=== PATIENT | female | born 1960 | race Caucasian/White ===

== ENCOUNTER → 2023-12-29 12:45 | Outpatient (REF) | payer OTHER, SELFPAY | LOC: PAVMRI 12:45 | PROVIDERS: ATTENDING PHYSICIAN Physician Assistant Surgical | DX: M25.512 Pain in left shoulder (principal); M54.2 Cervicalgia | CPT/HCPCS: 72141; 73221 ==

== ENCOUNTER → 2024-01-13 09:44 | Outpatient (REF) | payer OTHER, SELFPAY | LOC: RAD 09:44 | PROVIDERS: ATTENDING PHYSICIAN Nurse Practitioner | DX: E04.1 Nontoxic single thyroid nodule (principal) | CPT/HCPCS: 76536 ==

== ENCOUNTER 2024-02-20 15:57 | Outpatient (RCR) | payer OTHER, SELFPAY | END 2024-02-20 23:59 | disposition home or self-care (01) | LOC: RPT 15:57 | PROVIDERS: ATTENDING PHYSICIAN Specialist; FAMILY PHYSICIAN Nurse Practitioner | DX: M54.2 Cervicalgia (principal); M75.82 Other shoulder lesions, left shoulder; M65.20 Calcific tendinitis, unspecified site; Z73.6 Limitation of activities due to disability; M19.012 Primary osteoarthritis, left shoulder; M50.222 Other cervical disc displacement at C5-C6 level; M54.50 Low back pain, unspecified; M72.2 Plantar fascial fibromatosis | CPT/HCPCS: 97010; 97110; 97140; 97162; 97530 ==

== ENCOUNTER 2024-03-21 12:06 | Outpatient (RCR) | payer OTHER, SELFPAY | END 2024-03-21 23:59 | disposition home or self-care (01) | LOC: RPT 12:06 | PROVIDERS: ATTENDING PHYSICIAN Specialist; FAMILY PHYSICIAN Nurse Practitioner | DX: M54.2 Cervicalgia (principal); M65.20 Calcific tendinitis, unspecified site; Z73.6 Limitation of activities due to disability | CPT/HCPCS: 97010; 97110; 97140; 97530 ==

== ENCOUNTER 2024-04-18 13:51 | Outpatient (RCR) | payer OTHER, SELFPAY | END 2024-04-18 23:59 | disposition home or self-care (01) | LOC: RPT 13:51 | PROVIDERS: ATTENDING PHYSICIAN Specialist; FAMILY PHYSICIAN Nurse Practitioner | DX: M54.2 Cervicalgia (principal); M75.82 Other shoulder lesions, left shoulder; Z73.6 Limitation of activities due to disability | CPT/HCPCS: 97010; 97110; 97140 ==

== ENCOUNTER 2024-04-25 12:05 | Outpatient (RCR) | payer OTHER, SELFPAY | END 2024-04-25 14:01 | disposition home or self-care (01) | LOC: RPT 12:05 | PROVIDERS: ATTENDING PHYSICIAN Specialist; FAMILY PHYSICIAN Nurse Practitioner | DX: M54.2 Cervicalgia (principal); M75.82 Other shoulder lesions, left shoulder; Z73.6 Limitation of activities due to disability; M65.20 Calcific tendinitis, unspecified site | CPT/HCPCS: 97010; 97110; 97140 ==

== ENCOUNTER → 2024-08-18 09:18 | Outpatient (REF) | payer OTHER, SELFPAY | LOC: RCS 09:18 | PROVIDERS: ATTENDING PHYSICIAN Nurse Practitioner | DX: R60.0 Localized edema (principal) | CPT/HCPCS: 93306 ==

== ENCOUNTER → 2024-08-22 12:37 | Outpatient (REF) | payer OTHER, SELFPAY | LOC: RAD 12:37 | PROVIDERS: ATTENDING PHYSICIAN Nurse Practitioner; FAMILY PHYSICIAN Internal Medicine | DX: R11.0 Nausea (principal); M72.2 Plantar fascial fibromatosis; J90 Pleural effusion, not elsewhere classified | CPT/HCPCS: 71046; 74176 ==

== ENCOUNTER → 2024-09-28 06:31 | Day surgery (SDC) | payer OTHER, SELFPAY ==
[2024-09-28 08:27] LABS: Glucose - Point of Care 136 mg/dl (70-99)
== END ==
LOC: GI 06:31
PROVIDERS: ATTENDING PHYSICIAN Internal Medicine Gastroenterology
DX: K22.89 Other specified disease of esophagus (principal); Z87.19 Personal history of other diseases of the digestive system
CPT/HCPCS: 43239; 88305; 82962

== ENCOUNTER → 2024-11-09 08:43 | Outpatient (REF) | payer OTHER, SELFPAY | LOC: PAVMRI 08:43 | PROVIDERS: ATTENDING PHYSICIAN Internal Medicine Interventional Cardiology; FAMILY PHYSICIAN Nurse Practitioner | DX: I50.32 Chronic diastolic (congestive) heart failure (principal); I10 Essential (primary) hypertension; I51.89 Other ill-defined heart diseases | CPT/HCPCS: 75561; 75565; A9585 ==

== ENCOUNTER → 2024-11-21 09:27 | Outpatient (REF) | payer OTHER, SELFPAY ==
[2024-11-21 10:00] VITALS: BP 164/62; BP_SYST 74
[2024-11-21 11:00] LABS: Albumin 3.4 g/dl (3.5-5.0)
== END ==
LOC: RADI 09:27
PROVIDERS: ATTENDING PHYSICIAN Internal Medicine Gastroenterology; FAMILY PHYSICIAN Nurse Practitioner
DX: R18.8 Other ascites (principal); Z53.8 Procedure and treatment not carried out for other reasons
CPT/HCPCS: 36415; 76705; 82040

== ENCOUNTER → 2024-11-22 17:38 | Outpatient (REF) | payer OTHER, SELFPAY | LOC: MRI 17:38 | PROVIDERS: ATTENDING PHYSICIAN Internal Medicine Gastroenterology; FAMILY PHYSICIAN Nurse Practitioner | DX: R18.8 Other ascites (principal) | CPT/HCPCS: 74183; A9581 ==

== ENCOUNTER 2025-01-26 18:11 | Emergency (ER) | payer OTHER, SELFPAY ==
[2025-01-26 18:25] VITALS: BP 135/90
[2025-01-26 19:35] LABS: Glucose - Point of Care 363 mg/dl (70-99)
[2025-01-26] MEDS: DUPHALAC/CHRONULAC 20 GRAMS PO (21:54)
[2025-01-26] MEDS: NSS 1000 IV (21:55)
--- NOTE | 2025-01-26 21:56 | ED.GENMED ---
History of Present Illness
General
Chief Complaint: Bowel Problem
Source: patient
Exam Limitations: none
Time Seen by Provider: 01/26/25 21:04
Nursing documentation reviewed up to this point in time: agreed with
History of Present Illness
History of Present Illness:
62-year-old female with no bowel movement for 2 weeks think she may have an impaction, no fevers, she takes 11 meds including meds for mental health, diabetes, no narcotic pain med
Past History
Past History
ED Past Medical History: NIDDM and Hypothyroidism
ED Past Surgical History: Orthopedic
Phy Exam
Physical Exam
Physical Exam:
Physical Exam
General: Chronically ill-appearing female
Neck: Lips are slightly dry
Heart: s1/s2 regular rate and rhythm, no murmur. equal radial pulses.
Lungs: no acute respiratory distress. clear bilaterally
Abdomen: Distended mild diffuse tenderness
Neuro: alert and oriented. no focal neurological deficits
Skin: no rash
Psychiatric: well kept. interactive and cooperative
Extremities: no edema.
Course
Orders/Labs/Results
Orders:
Orders
01/26/25 18:29
Abdomen Xray - 1 View [CR Abdomen - 1 View] Urgent
Comment:
Reason For Exam: constipation x 2 weeks
01/26/25 19:25
Accucheck Once [Bedside Glucose Monitoring-ONCE] As Directed
01/26/25 21:36
0.9% Sodium Chloride 1000 ml [Nss] 1,000 ml IV BOLUS
Lactulose [Duphalac/Chronulac] 20 grams PO NOW STA
01/26/25 21:37
Enema- Treatment ONCE
Type: Soap Suds
01/26/25 21:53
Complete Blood Count/With Diff Urgent
Comprehensive Metabolic Panel Urgent
01/26/25 23:09
Polyethylene Glycol Powder [Miralax] 17 grams PO NOW STA
01/26/25 23:15
Enema- Treatment ONCE
Type: Milk of Molasses
Abnormal Lab Results
01/26/25 01/26/25
19:32 21:53
WBC 13.9 H 10^3/uL
(4.8-10.8)
MCH 32.0 H pg
(27.0-31.0)
MCHC 37.5 H g/dL
(33.0-37.0)
Abs Immat Gran (auto) 0.1 H 10^3/uL
(0-0.05)
Absolute Neuts (auto) 8.6 H 10^3/uL
(1.4-6.5)
Absolute Lymphs (auto) 3.8 H 10^3/uL
(1.2-3.4)
Absolute Monos (auto) 1.3 H 10^3/uL
(0.1-0.6)
Sodium 131 L mmol/L
(135-145)
Chloride 95 L mmol/L
(98-107)
BUN 36 H mg/dl
(7-17)
Glucose 286 H mg/dl
(70-99)
Total Bilirubin 1.9 H mg/dl
(0.2-1.3)
AST 47 H U/L
(14-36)
ALT 43 H U/L
(0-35)
POC Glucose 363 H mg/dl
(70-99)
01/26/25 21:53
01/26/25 21:53
Vital Signs
Initial and Last Documented VS:
Initial Vital Signs
Temp Pulse Resp BP Pulse Ox
98 F 144 20 135/90 100
01/26/25 18:25 01/26/25 18:25 01/26/25 18:25 01/26/25 18:25 01/26/25 18:25
Last Documented Vital Signs
Temp Pulse Resp BP Pulse Ox
98 F 100 18 134/94 98
01/26/25 18:25 01/27/25 01:57 01/27/25 01:57 01/27/25 01:57 01/27/25 01:57
Procedures
Other
Indication for procedure:: Fecal DISimpaction
Procedure completed by: Farhat
Consent form signed: No
Additional Procedure:
Verbal consent timeout gloved hand moderate amount of semihard stool removed from patient's rectum
MDM/Problems Addressed
Differential Diagnosis Includes:
Constipation obstipation does not appear to be obstructed
MDM/Problems Addressed:
Constipation multiple meds
Chronic conditions affecting care:
Multiple medication
Chronic conditions affecting care: Neurological disorder and Psychiatric illness
Acute Exacerbation and/or Progression of Chronic Illness: Neurological disorder and Psychiatric illness
*Critical Care Note
Total Time (30-74mins, 75-104mins- exclusive of procedures): Not Applicable
Update Note
Update Note:
Patient with a large amount of stool on her x-ray, will start aggressive bowel regimen, blood sugars up check some blood work start on IV fluids perform serial abdominal exams prior upper and lower endoscopy reports reviewed
1025, saline hydration up, labs are noted patient also urinary retention suspect due to her constipation see if we get her opened up diffuse able to urinate
Manually disimpacted
ED Attending Note
-
Portions of this chart may have been created with voice recognition software.� Occasional wrong word or��sound alike� substitutions may have occurred due to the inherent limitations of voice recognition software.
Discharge Plan
Departure
Patient Disposition: Home (Routine Discharge)
Date of Disposition: 01/26/25
Time of Disposition: 23:13
Patient with high blood pressure during this ER visit?: No
Condition: Good
Covid-19: Not Applicable
Discharge Problem:
Fecal impaction of rectum
Instructions: Constipation, Adult (DC), Fecal Impaction (DC)
Prescriptions:
New
lactulose 20 gram packet
20 g PO BID PRN (Reason: laxative effect) Qty: 30 0RF
mineral oil [Fleet Mineral Oil] Enema
118 ml [place] DAILY PRN (Reason: Constipation) Qty: 133 8RF
polyethylene glycol 3350 [Miralax] 17 gram/dose powder
4 g PO DAILY PRN (Reason: Constipation) Qty: 476 0RF
No Action
glipizide 10 MG tablet
10 mg PO BID
omeprazole 40 MG capsule,delayed release(DR/EC)
40 mg PO DAILY
alprazolam 0.25 MG tablet
0.25 mg PO DAILY
levothyroxine 50 MCG tablet
50 mcg PO DAILY
metformin 1,000 MG tablet
1,000 mg PO BID
fluticasone propionate 1 SPRAY spray,suspension
1 spray intranasal DAILY
loratadine 10 MG tablet
10 mg PO DAILY
furosemide 40 mg Tablet
40 mg PO DAILY
atorvastatin 40 mg Tablet
40 mg PO DAILY
atomoxetine [Strattera] 25 mg Capsule
25 mg PO DAILY
duloxetine 30 mg Capsule,Delayed Release(Dr/Ec)
30 mg PO BID
(DME) FreeStyle Bassem 2 Sensor Kit
MISCELLANEOUS
Rybelsus 14 mg Tablet
14 mg PO DAILY
cyclobenzaprine 10 mg Tablet
10 mg PO TID PRN (Reason: back/neck pain)
spironolactone 100 mg Tablet
100 mg PO DAILY
Referrals:
Deni Garcia MD [Active] - Next open appointment
Marsha Levin CRNP [Family Provider] -
Interventions
Interventions:
*Risk Screen - Suicide Last Done: 01/26/25 18:25
*General Assessment Last Done: 01/27/25 00:34
*Neglect/Abuse Screening Last Done: 01/26/25 18:25
*ED- Fall Risk Assessment Last Done: 01/27/25 00:34
*ED COVID-19 Vaccine History Last Done: 01/27/25 00:34
*Nursing Disposition Last Done: 01/27/25 01:33
TT-Qdcxay-Amoiifyqle Assessment Last Done: 01/26/25 22:08
Discharge Date and Time
Discharge Date/Time: 01/27/25 01:58
Print Language: FRENCH
[2025-01-26 21:59] LABS: % Basophils 0.6 % (0-2); % Eosinophils 1.2 % (0-6); % Immature Granulocytes 0.4 % (0-0.5); % Lymphocytes 27.1 % (20.5-51.1); % Neutrophils 61.7 % (42.2-75.2); Absolute Basophils 0.1 10^3/uL (0-0.2); Absolute Eosinophils 0.2 10^3/uL (0-0.7); Absolute Immature Granulocytes 0.1 10^3/uL (0-0.05); Absolute Lymphocytes 3.8 10^3/uL (1.2-3.4); Absolute Monocytes 1.3 10^3/uL (0.1-0.6); Absolute Neutrophils 8.6 10^3/uL (1.4-6.5); Hematocrit 41.1 % (37.0-47.0); Hemoglobin 15.4 g/dL (12.0-16.0); Mean Corp Hgb Conc. 37.5 g/dL (33.0-37.0); Mean Corpuscular Volume 85.3 fL (81.0-99.0); Mean Platelet Volume 9.9 fL (7.4-10.4); Nucleated Red Blood Cells % 0 %; Platelet Count 218 10^3/uL (130-400); Red Blood Cell Count 4.82 10^6/uL (4.20-5.40); Red Cell Dist. Width 12.6 % (11.5-14.5); White Blood Cell Count 13.9 10^3/uL (4.8-10.8)
[2025-01-26 22:15] LABS: ALT (SGPT) 43 U/L (0-35); AST (SGOT) 47 U/L (14-36); Albumin 4.1 g/dl (3.5-5.0); Alkaline Phosphatase 91 U/L (38-126); Blood Urea Nitrogen 36 mg/dl (7-17); Carbon Dioxide 27 mmol/L (22-30); Chloride 95 mmol/L (98-107); Glucose 286 mg/dl (70-99); Potassium 4.5 mmol/L (3.5-5.1); Sodium 131 mmol/L (135-145); Total Bilirubin 1.9 mg/dl (0.2-1.3); Total Protein 7.1 g/dl (6.3-8.2); eGFR > 60.00
[2025-01-27] MEDS: MIRALAX 17 GRAMS PO (00:02)
[2025-01-27 01:57] VITALS: BP 134/94
== END 2025-01-27 01:58 | disposition home or self-care (01) ==
LOC: EMR 18:11
PROVIDERS: EMERGENCY PHYSICIAN Emergency Medicine; FAMILY PHYSICIAN Nurse Practitioner
DX: K56.41 Fecal impaction (principal); E11.9 Type 2 diabetes mellitus without complications; E03.9 Hypothyroidism, unspecified
CPT/HCPCS: 99283; 96360; 74018; 80053; 82962; 85025

== ENCOUNTER 2025-01-30 18:48 | Inpatient (IN) | payer OTHER, SELFPAY ==
[2025-01-30] VITALS (24 sets, daily range): BP systolic 89–145; BP diastolic 57–98; BMI 20.1; BMI 19.7
[2025-01-30 14:29] LABS: Glucose - Point of Care 178 mg/dl (70-99)
--- NOTE | 2025-01-30 14:42 | ED.GENMED ---
History of Present Illness
<Flavio Christensen MD - Last Filed: 01/30/25 15:52>
General
Chief Complaint: Change in Mental Status
Time Seen by Provider: 01/30/25 14:25
History of Present Illness
History of Present Illness:
Patient presents to the emergency department with altered mental status. Patient is a 64-year-old female with a history of diabetes, hypothyroidism, anxiety, CHF, cirrhosis who presents to the emergency department with altered mental status. Her
friend went to check on her and found her to be altered. Patient was found to be tachycardic and route. She has no history of arrhythmia per documentation. Patient is confused and unable to provide history. Was seen recently in the ER for fecal
impaction
Past History
<Flavio Christensen MD - Last Filed: 01/30/25 15:52>
Past History
ED Past Medical History: NIDDM and Hypothyroidism
ED Past Surgical History: Orthopedic
Phy Exam
<Flavio Christensen MD - Last Filed: 01/30/25 15:52>
Physical Exam
Physical Exam:
GENERAL APPEARANCE: Patient is chronically ill-appearing laying in stretcher in no distress
EYES lids/conjunctiva normal
EARS/NOSE/THROAT Mucous membranes tacky, uvula midline without oral pharyngeal erythema, exudate or swelling
HEAD/NECK normocephalic atraumatic, neck is supple.
RESPIRATORY respiratory effort normal, no accessory muscle use. Lungs clear to auscultation without rhonchi, wheezes, rales
CARDIAC Regular tachycardia, no edema.
ABDOMINAL Soft, ND/NT. No pulsatile masses on exam, rebound tenderness,
MUSCLES/EXTREMITIES No abnormal range of motion, no swelling.
SKIN Warm, pink and dry. No rashes
NEUROLOGICAL patient is awake with decreased level of consciousness. She is easily arousable but has diminished attention. She is oriented x 2. She is moving all extremities. She has no gross cranial nerve deficits
Course
<Flavio Christensen MD - Last Filed: 01/30/25 15:52>
Orders/Labs/Results
Orders:
Orders
01/30/25 14:32
Electrocardiogram (*1) Stat
Comment: ALREADY DONE IN ED
01/30/25 14:40
CT Head W/o Iv Contrast Urgent
Comment:
Reason For Exam: altered mental status
01/30/25 14:45
Speech Screening from Kristina Routine
01/30/25 14:47
Alcohol Urgent
BNP [NT-proBNP] Urgent
Complete Blood Count/With Diff Urgent
Comprehensive Metabolic Panel Urgent
Free T4 Urgent
PTT Urgent
Prothrombin Time Urgent
TSH Reflex To Free T4 Urgent
Troponin I Urgent
Urinalysis Reflex To Culture Urgent
Date Specimen was Collected: 01/30/25
Time Specimen was Collected: 14:34
Urine Drug Abuse Screen Urgent
Date Specimen was Collected: 01/30/25
Time Specimen was Collected: 14:34
Urine Microscopic Reflex Cult Urgent
01/30/25 14:51
Add On- LAB Urgent
Comments:: In lab
Tests Added?: Drug UA
01/30/25 15:20
Digoxin [Lanoxin] 250 mcg IV NOW STA
01/30/25 15:24
Diltiazem HCl [Cardizem] 15 mg IV NOW STA
01/30/25 15:25
CR Chest Portable - 1 View Urgent
Comment:
Reason For Exam: altered mental status
Reason Study Needs to be Portable: Patient Unstable
01/30/25 15:37
Ammonia Urgent
01/30/25 15:47
Electrocardiogram (*1) Urgent
Reason for Study: Palpitations
01/30/25 15:49
Diltiazem 125 mg/125 ml Nss [Cardizem] 125 mg in 125 ml IV NOW
Initial dose in mg/hr, then titrate:: 5
Titrate to keep:: Heart rate 80-100 bpm
Titrate by mg/hr:: 5 mg/hr
Frequency of titrations (minutes):: 15
Maximum dose in mg/hr:: 15
01/30/25 16:22
Lactulose [Duphalac/Chronulac] 20 grams PO ONCE ONE
Abnormal Lab Results
01/30/25 01/30/25 01/30/25
14:28 14:47 15:37
WBC 11.5 H 10^3/uL
(4.8-10.8)
MCH 31.5 H pg
(27.0-31.0)
Absolute Monos (auto) 1.1 H 10^3/uL
(0.1-0.6)
Monocytes % 9.4 H %
(1.7-9.3)
PT 16.5 H Sec
(11.4-14.6)
BUN 37 H mg/dl
(7-17)
Glucose 170 H mg/dl
(70-99)
Calcium 10.7 H mg/dl
(8.4-10.2)
AST 60 H U/L
(14-36)
ALT 49 H U/L
(0-35)
Ammonia 82 H umol/L
(9-30)
Troponin I 0.315 H* ng/ml
Total Protein 6.2 L g/dl
(6.3-8.2)
TSH (Reflex) 5.14 H uIU/ml
(0.47-4.68)
Urine Albumin (Reflex) 2+ A
(Neg - Trace)
POC Glucose 178 H mg/dl
(70-99)
01/30/25 14:47
01/30/25 14:47
Vital Signs
Initial and Last Documented VS:
Initial Vital Signs
Pulse Resp Pulse Ox
145 30 100
01/30/25 14:37 01/30/25 14:37 01/30/25 14:37
Last Documented Vital Signs
Pulse Resp BP Pulse Ox
148 19 140/82 99
01/30/25 17:00 01/30/25 17:00 01/30/25 16:30 01/30/25 16:45
<Price Ly, DO - Last Filed: 01/30/25 17:15>
Orders/Labs/Results
Orders:
Orders
01/30/25 14:32
Electrocardiogram (*1) Stat
Comment: ALREADY DONE IN ED
01/30/25 14:40
CT Head W/o Iv Contrast Urgent
Comment:
Reason For Exam: altered mental status
01/30/25 14:45
Speech Screening from Kristina Routine
01/30/25 14:47
Alcohol Urgent
BNP [NT-proBNP] Urgent
Complete Blood Count/With Diff Urgent
Comprehensive Metabolic Panel Urgent
Free T4 Urgent
PTT Urgent
Prothrombin Time Urgent
TSH Reflex To Free T4 Urgent
Troponin I Urgent
Urinalysis Reflex To Culture Urgent
Date Specimen was Collected: 01/30/25
Time Specimen was Collected: 14:34
Urine Drug Abuse Screen Urgent
Date Specimen was Collected: 01/30/25
Time Specimen was Collected: 14:34
Urine Microscopic Reflex Cult Urgent
01/30/25 14:51
Add On- LAB Urgent
Comments:: In lab
Tests Added?: Drug UA
01/30/25 15:20
Digoxin [Lanoxin] 250 mcg IV NOW STA
01/30/25 15:24
Diltiazem HCl [Cardizem] 15 mg IV NOW STA
01/30/25 15:25
CR Chest Portable - 1 View Urgent
Comment:
Reason For Exam: altered mental status
Reason Study Needs to be Portable: Patient Unstable
01/30/25 15:37
Ammonia Urgent
01/30/25 15:47
Electrocardiogram (*1) Urgent
Reason for Study: Palpitations
01/30/25 15:49
Diltiazem 125 mg/125 ml Nss [Cardizem] 125 mg in 125 ml IV NOW
Initial dose in mg/hr, then titrate:: 5
Titrate to keep:: Heart rate 80-100 bpm
Titrate by mg/hr:: 5 mg/hr
Frequency of titrations (minutes):: 15
Maximum dose in mg/hr:: 15
01/30/25 16:22
Lactulose [Duphalac/Chronulac] 20 grams PO ONCE ONE
Abnormal Lab Results
01/30/25 01/30/25 01/30/25
14:28 14:47 15:37
WBC 11.5 H 10^3/uL
(4.8-10.8)
MCH 31.5 H pg
(27.0-31.0)
Absolute Monos (auto) 1.1 H 10^3/uL
(0.1-0.6)
Monocytes % 9.4 H %
(1.7-9.3)
PT 16.5 H Sec
(11.4-14.6)
BUN 37 H mg/dl
(7-17)
Glucose 170 H mg/dl
(70-99)
Calcium 10.7 H mg/dl
(8.4-10.2)
AST 60 H U/L
(14-36)
ALT 49 H U/L
(0-35)
Ammonia 82 H umol/L
(9-30)
Troponin I 0.315 H* ng/ml
Total Protein 6.2 L g/dl
(6.3-8.2)
TSH (Reflex) 5.14 H uIU/ml
(0.47-4.68)
Urine Albumin (Reflex) 2+ A
(Neg - Trace)
POC Glucose 178 H mg/dl
(70-99)
01/30/25 14:47
01/30/25 14:47
Vital Signs
Initial and Last Documented VS:
Initial Vital Signs
Pulse Resp Pulse Ox
145 30 100
01/30/25 14:37 01/30/25 14:37 01/30/25 14:37
Last Documented Vital Signs
Pulse Resp BP Pulse Ox
148 19 140/82 99
01/30/25 17:00 01/30/25 17:00 01/30/25 16:30 01/30/25 16:45
<Price Ly DO - Last Filed: 01/30/25 17:15>
*Critical Care Note
Total Time (30-74mins, 75-104mins- exclusive of procedures): Not Applicable
<Price Ly DO - Last Filed: 01/30/25 17:15>
Update Note
Update Note:
5:15 PM care of patient was transitioned earlier pending lab work and CT head. Patient presents in altered mental status. Patient found to have an elevated ammonia level. Patient given lactulose. Patient also found to be in a flutter requiring
Cardizem drip. Will admit
ED Attending Note
<Flavio Christensen MD - Last Filed: 01/30/25 15:52>
ED Attending Note
ED Attending Note:
Patient presents with encephalopathy of unclear etiology. She has no focal neurologic deficits. Differential is broad including metabolic, toxic, traumatic, vascular etiology. Will check CT head, labs, urinalysis. Patient's tachycardia noted to
be regular in the 140s sinus versus atrial flutter. Giving IV fluids, will potentially need rate control. Saturating well on RA, no resp distress, doubt PE.
With high concern for atrial flutter, patient given dose of diltiazem 15mg IVP which did reveal flutter waves. Will rate control with diltiazem. Deferring AC prior to CT head.
-
Portions of this chart may have been created with voice recognition software.� Occasional wrong word or��sound alike� substitutions may have occurred due to the inherent limitations of voice recognition software.
Discharge Plan
Departure
Patient Disposition: Admit
Date of Disposition: 01/30/25
Time of Disposition: 17:14
Admit to: IMU
Presentation/result/management discussed w/ accepting MD/DO: Hospitalist
Discharge Problem:
Acute hepatic encephalopathy, Atrial flutter
Prescriptions:
No Action
glipizide 10 MG tablet
10 mg PO BID
omeprazole 40 MG capsule,delayed release(DR/EC)
40 mg PO DAILY
levothyroxine 50 MCG tablet
50 mcg PO DAILY
metformin 1,000 MG tablet
1,000 mg PO BID
furosemide 40 mg Tablet
80 mg PO DAILY
atorvastatin 40 mg Tablet
40 mg PO DAILY
duloxetine 30 mg Capsule,Delayed Release(Dr/Ec)
30 mg PO BID
Rybelsus 14 mg Tablet
14 mg PO DAILY
spironolactone 100 mg Tablet
100 mg PO DAILY
carvedilol [Coreg] 3.125 mg Tablet
3.125 mg PO BID
sertraline 25 mg Tablet
75 mg PO DAILY
atomoxetine [Strattera] 40 mg Capsule
40 mg PO DAILY
mineral oil [Fleet Mineral Oil] Enema
118 ml [place] DAILYPRN PRN (Reason: Constipation)
polyethylene glycol 3350 [Miralax] 17 gram/dose powder
8.5 g PO DAILYPRN PRN (Reason: Constipation)
lactulose 20 gram packet
20 g PO BIDPRN PRN (Reason: laxative effect)
Referrals:
UNKNOWN - PT NOT,INTERVIEWE [Family Provider] -
Interventions
Interventions:
*Risk Screen - Suicide Last Done: 01/30/25 14:21
*General Assessment Last Done: 01/30/25 14:21
*Neglect/Abuse Screening Last Done: 01/30/25 14:21
*ED- Fall Risk Assessment Last Done: 01/30/25 14:21
*ED COVID-19 Vaccine History Last Done: 01/30/25 14:21
ED- Pulmonary Assessment Last Done: 01/30/25 14:37
ED- Neurological Assessment Last Done: 01/30/25 14:37
ED- Cardiac Assessment Last Done: 01/30/25 14:37
ED Swallowing Screen Last Done: 01/30/25 14:37
Discharge Date and Time
Print Language: MACEDONIAN
[2025-01-30 14:57] LABS: % Basophils 0.8 % (0-2); % Eosinophils 3.8 % (0-6); % Immature Granulocytes 0.3 % (0-0.5); % Lymphocytes 29.7 % (20.5-51.1); % Monocytes 9.4 % (1.7-9.3); Absolute Basophils 0.1 10^3/uL (0-0.2); Absolute Eosinophils 0.4 10^3/uL (0-0.7); Absolute Lymphocytes 3.4 10^3/uL (1.2-3.4); Absolute Monocytes 1.1 10^3/uL (0.1-0.6); Absolute Neutrophils 6.5 10^3/uL (1.4-6.5); Hematocrit 37.9 % (37.0-47.0); Hemoglobin 13.5 g/dL (12.0-16.0); Mean Corp Hgb Conc. 35.6 g/dL (33.0-37.0); Mean Corpuscular Hgb 31.5 pg (27.0-31.0); Mean Corpuscular Volume 88.6 fL (81.0-99.0); Mean Platelet Volume 10.2 fL (7.4-10.4); Nucleated Red Blood Cells % 0 %; Platelet Count 194 10^3/uL (130-400); Red Blood Cell Count 4.28 10^6/uL (4.20-5.40); Red Cell Dist. Width 13.3 % (11.5-14.5); Urine Albumin 2+ (Neg - Trace); Urine Bilirubin Negative (Negative); Urine Character Clear (Clear); Urine Color Yellow; Urine Glucose Negative (Negative); Urine Ketone Negative (Negative); Urine Leukocyte Negative (Negative); Urine Nitrite Negative (Negative); Urine Occult Blood Negative (Negative); Urine Specific Gravity 1.015 (<1.030); Urine Urobilinogen Negative (Neg - 1+); White Blood Cell Count 11.5 10^3/uL (4.8-10.8)
[2025-01-30 15:06] LABS: INR 1.28; PT 16.5 Sec (11.4-14.6)
[2025-01-30 15:09] LABS: APTT 31.9 Sec (23.4-35.0)
[2025-01-30 15:11] LABS: Urine Red Blood Cell 0-2 /HPF (0-2); Urine White Cell 0-2 /HPF (0-5)
[2025-01-30 15:12] LABS: ALT (SGPT) 49 U/L (0-35); AST (SGOT) 60 U/L (14-36); Albumin 3.5 g/dl (3.5-5.0); Alkaline Phosphatase 86 U/L (38-126); Blood Urea Nitrogen 37 mg/dl (7-17); Calcium 10.7 mg/dl (8.4-10.2); Carbon Dioxide 24 mmol/L (22-30); Chloride 103 mmol/L (98-107); Estimated Creatinine Clearance 55 ml/min; Glucose 170 mg/dl (70-99); Potassium 4.6 mmol/L (3.5-5.1); Sodium 137 mmol/L (135-145); Total Bilirubin 0.9 mg/dl (0.2-1.3); Total Protein 6.2 g/dl (6.3-8.2); eGFR > 60.00
[2025-01-30 15:13] LABS: Alcohol None Detected
[2025-01-30 15:23] LABS: NT-proBNP 4410 pg/ml; Troponin I 0.315 ng/ml
[2025-01-30] MEDS: CARDIZEM 15 MG IV (15:39)
[2025-01-30 15:58] LABS: TSH Reflex To Free T4 5.14 uIU/ml (0.47-4.68)
[2025-01-30] MEDS: CARDIZEM 125 IV (15:58)
[2025-01-30 16:04] LABS: Ammonia 82 umol/L (9-30)
[2025-01-30 16:06] LABS: Amphetamines Negative (Negative); Barbiturates Negative (Negative); Benzodiazepines Negative (Negative); Buprenorphine Negative (Negative); Cocaine Negative (Negative); Marijuana Negative (Negative); Methadone Negative (Negative); Methamphetamines Negative (Negative); Opiates Negative (Negative); Phencyclidine Negative (Negative)
[2025-01-30 16:07] LABS: Tricyclic Antidepressants Negative (Negative)
[2025-01-30 16:27] LABS: Free T4 1.47 ng/dl (0.78-2.19)
[2025-01-30] MEDS: DUPHALAC/CHRONULAC 20 GRAMS PO ×2 (16:47→21:49)
--- NOTE | 2025-01-30 18:24 | HPS.HSE ---
Family Physician
-
Family Physician: INTERVIEWE UNKNOWN - PT NOT
Chief Complaint
-
Change in mental status
History of Present Illness
Patient is a 64 y/o female past medical history of CHF< Hypertension, DM, and Cirrhosis who presents with change in mental status. Additional history is provide by patient's friend at the bedside. Friend has noted a decline in patient, reporting
some noticeable word finding difficulty and slow responses while talking on the phone. Today the friend visited the patient and noted her to be very confused. Patient was not oriented and brought to the emergency department for evaluation. Patient
was found to have elevated ammonia level and given lactulose, and mentation is improving per friend at bedside. Telemetry monitoring also reveal atrial flutter with rapid ventricular response. Patient denies any prior history of arrhythmias.
Medical History
Past Medical History
Past Medical History: Reports Other
Additional Past Medical History:
Chronic HFpEF
Essential Hypertension
Hyperlipidemia
Diabetes Mellitus, Type II
Hypothyroidism
Iron Deficiency Anemia
Alcoholic Cirrhosis
GERD / Monk's Esophagus
Psoriasis
Anxiety/Depression
ADHD
Past Surgical History: Reports Other
Additional Past Surgical History:
Partial Thyroidectomy
Bilateral Breast Lumpectomy (benign)
Right Shoulder Arthroscopy
Tonsillectomy
Social History
Tobacco: Non-smoker
Alcohol: Former (Patient reports drinking a 1.5L bottle of wine nightly, but has been sober since Aug 2024)
Family History
Family History: Other (Father: CAD, DM Mother: Lung Cancer)
Allergies / Home Medications
Allergies reflects when Allergies were last updated in [facility].
Home Medications with original date entered in [facility]
Allergy/Medication List:
Allergies
Allergy/AdvReac Type Severity Reaction Status Date / Time
adhesive tape Allergy Unknown Swelling Verified 01/26/25 18:25
clarithromycin Allergy Unknown Rash/vomiti Verified 01/26/25 18:25
ng
erythromycin base Allergy Unknown Tongue Verified 01/26/25 18:25
Swelling
ofloxacin Allergy Unknown Rash/vomiti Verified 01/26/25 18:25
ng
Quinolones Allergy Unknown Rash Verified 01/26/25 18:25
trimethoprim Allergy Unknown Rash Verified 01/26/25 18:25
nitrofurantoin Allergy Vomiting Verified 01/26/25 18:25
[From Macrobid]
Sulfa (Sulfonamide Allergy Rash Verified 01/26/25 18:25
Antibiotics)
sulfamethoxazole Allergy Rash Verified 01/26/25 18:25
NOT.[id number] - Not Allergy patient Uncoded 01/26/25 18:25
Converted 38. See Text. denies
NOT.[id number] - Not Allergy rash - Uncoded 01/26/25 18:25
Converted 65. See Text. cough
medicine
with
codeine
Home Medications
glipizide 10 mg tablet 10 mg PO BID 02/04/21
levothyroxine 50 mcg tablet 50 mcg PO DAILY 02/04/21
metformin 1,000 mg tablet 1,000 mg PO BID 02/04/21
omeprazole 40 mg capsule,delayed release 40 mg PO DAILY 02/04/21
atorvastatin 40 mg tablet 40 mg PO DAILY 11/19/24
duloxetine 30 mg capsule,delayed release 30 mg PO BID 11/19/24
furosemide 40 mg tablet 80 mg PO DAILY 11/19/24
semaglutide 14 mg tablet (Rybelsus) 14 mg PO DAILY 11/19/24
spironolactone 100 mg tablet 100 mg PO DAILY 11/19/24
atomoxetine 40 mg capsule (Strattera) 40 mg PO DAILY 01/30/25
carvedilol 3.125 mg tablet (Coreg) 3.125 mg PO BID 01/30/25
lactulose 20 gram oral packet 20 g PO BIDPRN PRN laxative effect 01/30/25
mineral oil (Fleet Mineral Oil enema) 118 ml [place] DAILYPRN PRN Constipation 01/30/25
polyethylene glycol 3350 17 gram/dose oral powder (Miralax) 8.5 g PO DAILYPRN PRN Constipation 01/30/25
sertraline 25 mg tablet 75 mg PO DAILY 01/30/25
Review of Systems
-
A 12 point ROS was completed and negative except as noted: Yes
Constitutional: Denies Fever
Respiratory: Denies Cough or Trouble Breathing
Cardiac: Denies Chest Pain or Palpitations
Abdomen/GI: Denies Abdominal Pain, Nausea or Vomiting
Physical Exam
Vital Signs
Vital Signs
Pulse Resp BP Pulse Ox
148 19 140/82 99
01/30/25 17:00 01/30/25 17:00 01/30/25 16:30 01/30/25 16:45
Physical Exam
General: Comfortable, Conversant and Other (Appears thin, and friend notes patient appears to have lost weight)
HEENT: NormoCephalic and Anicteric
Respiratory: Clear and Non Labored Respirations
Cardiac: S1/S2, Regular Rhythm and Tachycardia
GI: Soft and Non Tender
Rectal: Deferred by Provider
Musculoskeletal: No Clubbing, No Cyanosis and No Edema
Skin: Warm and Dry
Neuro: Awake, Alert, Oriented (Patient gave correct month and year, place, and identified her friend at bedside, and named current president) and Nonfocal/grossly intact
Psych: Calm
Laboratory Results
-
01/30/25 14:47
01/30/25 14:47
Laboratory Results
PT 16.5 Sec (11.4-14.6) H 01/30/25 14:47
INR 1.28 01/30/25 14:47
APTT 31.9 Sec (23.4-35.0) 01/30/25 14:47
Total Bilirubin 0.9 mg/dl (0.2-1.3) 01/30/25 14:47
AST 60 U/L (14-36) H 01/30/25 14:47
ALT 49 U/L (0-35) H 01/30/25 14:47
Alkaline Phosphatase 86 U/L (38-126) 01/30/25 14:47
Troponin I 0.315 ng/ml H* 01/30/25 14:47
Data Reviewed
-
Lab Data: Labs Reviewed by me
Old Records: Reviewed
Impression/Plan
-
Acute Hepatic Encephalopathy secondary to Alcoholic Liver Disease
-Consult GI
-Continue Lactulose
-Start Xifaxan
-Trend ammonia level
Atrial Flutter with Rapid Ventricular Response
-Rate remains poorly controlled on max dose of diltiazem infusion
-Give Lopressor 5mg IV NOW - If heart rate responds plan to start Toprol XL
Elevated Troponin, likely non-ischemic myocardial injury to uncontrolled heart rate
-Continue to trend troponin
-Check echocardiogram
Chronic HFpEF
-Echo Jul 2022: Normal left ventricular size, wall thickness and systolic function with EF 55-60%. Stage II Diastolic dysfunction
-Hold Lasix for now
-Continue spironolactone
-Monitor Daily Weights
Essential Hypertension
-Monitor blood pressure closely while on diltiazem infusion
Hyperlipidemia
-Continue atorvastatin
Diabetes Mellitus, Type II
-Hold metformin, glipizide and semaglutide
-Monitor sugars and continue coverage insulin
Hypothyroidism
-Continue levothyroxine
GERD / Monk's Esophagus
-Continue Protonix
Anxiety/Depression
-Continue sertraline and duloxetine
DVT proph: SC Heparin
Code Status: Full Code
--- NOTE | 2025-01-30 18:32 | W.PN.UPDATE ---
Update Note
Progress Note Update
64-year-old history with diabetes, hypothyroidism, anxiety, CHF, cirrhosis now presents for altered mental status.� Unknown time that this began.� Friend found her altered and prompted hospital evaluation.� Patient was noted to be tachycardic,
confused and unable to provide history.� Rhythm noted to be atrial flutter as per ED after diltiazem.� Otherwise respiratory rate 19, blood pressure 140/82, saturating 99% on room air.� White count 11.5, troponin 0.315, proBNP 4410, UA negative, UDS
negative, ammonia level 82.� X-ray with no acute pulmonary issues.� CT head unremarkable for acute pathology.� Was given digoxin, diltiazem, lactulose.� Plan�initiate lactulose p.o. or rectal if cannot tolerate p.o.� N.p.o. for now. Initiate
rifaximin.� GI consult. �Trend troponins.� Follow-up cardiology consult.� Hold anticoagulation for high fall risk. Defer to cardiology. Trial IV Lopressor and if tolerating � can start Lopressor po.
[2025-01-30 18:39] LABS: Magnesium 1.7 mg/dl (1.6-2.3)
[2025-01-30] MEDS: LOPRESSOR 5 MG IV (19:08)
[2025-01-30 20:00] LABS: Troponin I 0.288 ng/ml
[2025-01-30] MEDS: HEPARIN 5000 UNITS SC (21:49)
[2025-01-30] MEDS: CYMBALTA DELAYED RELEASE 30 MG PO (21:49)
[2025-01-30] MEDS: XIFAXAN 550 MG PO (21:49)
[2025-01-30 22:04] LABS: Glucose - Point of Care 151 mg/dl (70-99)
[2025-01-31] VITALS (27 sets, daily range): BP systolic 86–123; BP diastolic 48–76; PULSE 67; O2SAT 98; BMI 19.7
[2025-01-31] MEDS: CARDIZEM 125 IV (00:29)
[2025-01-31] MEDS: DUPHALAC/CHRONULAC 20 GRAMS PO ×6 (02:04→21:21)
[2025-01-31] MEDS: SYNTHROID 50 MCG PO (05:24)
[2025-01-31 05:48] LABS: Hematocrit 33.3 % (37.0-47.0); Hemoglobin 11.8 g/dL (12.0-16.0); Mean Corp Hgb Conc. 35.4 g/dL (33.0-37.0); Mean Corpuscular Hgb 31.3 pg (27.0-31.0); Mean Corpuscular Volume 88.3 fL (81.0-99.0); Mean Platelet Volume 10.4 fL (7.4-10.4); Platelet Count 175 10^3/uL (130-400); Red Blood Cell Count 3.77 10^6/uL (4.20-5.40); Red Cell Dist. Width 13.2 % (11.5-14.5); White Blood Cell Count 8.7 10^3/uL (4.8-10.8)
[2025-01-31 06:08] LABS: Ammonia 125 umol/L (9-30)
[2025-01-31 06:13] LABS: ALT (SGPT) 42 U/L (0-35); AST (SGOT) 45 U/L (14-36); Albumin 3.1 g/dl (3.5-5.0); Alkaline Phosphatase 70 U/L (38-126); Blood Urea Nitrogen 28 mg/dl (7-17); Calcium 9.8 mg/dl (8.4-10.2); Carbon Dioxide 23 mmol/L (22-30); Chloride 110 mmol/L (98-107); Estimated Creatinine Clearance 68 ml/min; Glucose 211 mg/dl (70-99); Magnesium 1.6 mg/dl (1.6-2.3); Potassium 4.7 mmol/L (3.5-5.1); Sodium 141 mmol/L (135-145); Total Bilirubin 1.2 mg/dl (0.2-1.3); Total Protein 5.7 g/dl (6.3-8.2); eGFR > 60.00
--- NOTE | 2025-01-31 06:34 | PTCARENOTE ---
Received patient from the ED on a cardizem gtt at 15mcg/min. Titrated down to 5mcg/min for heart rate in the 70s with soft BP. Titrated back up to 10 mcg/min. Patient slow to respond and has trouble following commands at times. Patient constipated
initially but had large formed bowel movement x2.
[2025-01-31 08:06] LABS: Glucose - Point of Care 139 mg/dl (70-99)
[2025-01-31] MEDS: NOVOLOG FLEXPEN-LOW RESISTANCE SC ×2 (08:21→13:04)
[2025-01-31] MEDS: ZOLOFT 75 MG PO (08:21)
[2025-01-31] MEDS: XIFAXAN 550 MG PO ×2 (08:22→20:06)
[2025-01-31] MEDS: HEPARIN 5000 UNITS SC ×2 (08:22→20:06)
[2025-01-31] MEDS: ALDACTONE 100 MG PO (08:22)
[2025-01-31] MEDS: CYMBALTA DELAYED RELEASE 30 MG PO ×2 (08:22→20:06)
[2025-01-31] MEDS: LIPITOR 40 MG PO (08:22)
[2025-01-31] MEDS: PROTONIX 40 MG PO (08:22)
[2025-01-31 09:02] LABS: Glycohemoglobin (HgbA1c) 8.7 % (4.0-5.6)
--- NOTE | 2025-01-31 10:52 | PTCARENOTE ---
Assumed care of patient at beginning of this shift from previous RN with cardizem infusing at 15mg/hr; HR low 100s. During initial med pass, able to decrease cardizem to 10mg/hr with HR 70s-90. Reassessment showed HR 54 and SB with BP 105/50. EKG
done to confirm as per protocol. Notified Dr Shukla via TT with picture of EKG; instructed to stop cardizem. Cardizem off at 09:28. Patient currently in radiology for US abdomen.
Patient Ox1-2, drowsy but arousable; moves and talks slowly. She requires multiple cue and assistance to follow directions. No difficulty swallowing pills with water, but needed cuing/reminders to put straw to mouth and take a sip. Once she did,
patient did not have difficulty swallowing. See worklist for full assessment and vital signs.
--- NOTE | 2025-01-31 11:10 | CON.GI ---
Addendum entered and electronically signed by Lizett Philip DO 01/31/25 14:17:
Karin is a 64-year-old female with history of diabetes, new diagnosis of cirrhosis related alcohol abuse known to Dr. Hickman in our office who was admitted yesterday 01/30/25 for hepatic encephalopathy.
Patient herself is not able to give a whole lot of history and seems somnolent on exam. She was recently here for fecal impaction. She denies any nausea vomiting abdominal pain or bleeding.
She saw her PCP yesterday with a friend because of her mental status and she been largely sleeping for the past 2 weeks and barely eating. In the emergency room just last week for fecal impaction. Not on lactulose as an outpatient.
According to her outpatient note
Her last upper endoscopy was in September with no evidence of Chowdhury's. Liver workup included negative viral hepatitis, celiac panel, autoimmune panel all negative. Abdominal ultrasound did not show any evidence of ascites and she has never had a
paracentesis. MRI done in October showed evidence of cirrhosis with significant gastric and esophageal varices with large nichole hepatis and portacaval lymph nodes measuring over 4 cm with extrinsic compression of the main portal vein. She has some
mild lower extremity edema and was on a low-dose of Lasix. Has a history of iron deficiency with extensive testing including blood stool endoscopies colonoscopies and capsules with angioectasias in the colon that were cauterized.
For the large portal caval lymphadenopathy Dr. Hickman suggested she follow-up with hepatology with Dr. Gage.
# Hepatic encephalopathy -grade 3 - no infection found thus far, urine negative, no fever, no ascites on exam -no asterixis but she is somnolent
-- AFP in November was 2.0
-- No liver imaging this admission I did review her MRI from October 2024 showing significant portal hypertension with esophageal and gastric varices, no significant ascites but also large portacaval and large nichole hepatis lymph nodes measuring
over 4 cm with extrinsic compression of the main portal vein - -concern for malignancy with these large lymph nodes
-- Looking through her outpatient records she was supposed to see hepatology but I do not see any record of a visit
-- Will check abdominal ultrasound with Dopplers, check AFP, may need repeat MRI pending her mental status
-- Repeat ammonia level tomorrow, lactulose [id number], start Xifaxan
-- Aspiration precautions has elevated troponins -needs trended and followed per primary team
-- Patient's potassium and creatinine are within normal range
--X-ray chest and CT head were unremarkable
Addendum entered and electronically signed by EZIO Curtis 01/31/25 13:30:
pt also with afib/flutter on admission with conversion to NSR with cardizem gtt and card eval
Addendum entered and electronically signed by EZIO Curtis 01/31/25 13:27:
aFP pending
Original Note:
Consultation
-
Date/Time Consultation Requested: 01/31/252129
Date/Time Consultation Performed: 01/31/250
Requesting Provider: Anel Watkins PA-C
Performing Provider: EZIO Greene, Lizett Philip DO
Reason for Consultation: confusion
Medical History
Chief Complaint / HPI
Chief Complaint: confusion
History of Present Illness:
Pt is a 64yo with hx ETOH cirrhosis with no prior hx HE or prior GI bleeding-EV but noted ascites in past, chowdhury's, LACEY, CHF, HTN, NIDDM, psoriasis, anxiety/depression, ADHD, hypothyroidism/partial thyroidectomy with onset of change in mental
status with slow responses and word finding difficulty. On admission noted with WBC 11,500, hbg 13.5 , platelets 194, INR 1,28, Na 137, bili 0.9, AST 60, ALT 49, alk phos 86 and ammonia of 82 then rise to 125. Pt follows with Dr. Hickman prior
to admission. Hx multiple EGD's in past last 09/2024 with no lesions in esophagus, irreg z line, large amount of food in stomach. WATS-3D. bx neg metaplasia, colon 2020 with non bleeding colonic angiectasias, s/p APC, polyp TC, bx HP no microscopic
colitis. Pt did also have MRI in 10/2024 with severe portal HTN with large left upper quad varices, spenorenal shunting, large portohepatic and portacaval nodes with concern for inflammatory/infectious, malignant lymphadenopathy, mets vs lymphoma,
changes of cirrhosis, mild intrabhepatic biliary dilation and upper abd ascites, cholelithiasis. She was recommended follow up with Dr. Gage.
In review with patient she remains with some forgetfulness and slow speech. She admits to occasional shortness of breath but denies recent ETOH use. She denies dysphagia, GERD, nausea, vomiting, abdominal, diarrhea, constipation, or rectal
bleeding. Pt has had brown stool x admission but no large volume diarrhea.
Past Medical History
Past Medical History: CHF, GERD, HTN, Hypothyroidism, NIDDM and Other (psoriasis , allergic rhinitis, anxiety/depression, psoriasis, LACEY, ADD, covid, thyroid mass, fatty liver, ETOH cirrhosis with prior noted ascites,portal gastropathy, chowdhury's,
10/2024 abnromal MRI with severe portal HTN and adenopathy )
Past Surgical History: Orthopedic (shoulder surgery), Tonsilectomy and Other (benign breast bx, partial thyroidectomy,)
Social History
Tobacco: Former Smoker
Alcohol: None
Drug: None
Living: Alone
Employment: Retired
Family History
Family History: Other (mother wtih hx lung cA, ? ETOH use, father with DM, CAD, bile duct CA, sibling with panc CA per OP chart )
Allergies / Home Medications
Allergy/AdvReac Type Severity Reaction Status Date / Time
adhesive tape Allergy Swelling Verified 01/30/25 21:26
clarithromycin Allergy Rash/vomiti Verified 01/30/25 21:26
ng
erythromycin base Allergy Tongue Verified 01/30/25 21:26
Swelling
nitrofurantoin Allergy Vomiting Verified 01/26/25 18:25
[From Macrobid]
ofloxacin Allergy Rash/vomiti Verified 01/30/25 21:26
ng
Quinolones Allergy Rash Verified 01/30/25 21:26
Sulfa (Sulfonamide Allergy Rash Verified 01/30/25 21:26
Antibiotics)
sulfamethoxazole Allergy Rash Verified 01/30/25 21:26
trimethoprim Allergy Rash Verified 01/30/25 21:26
�Medication �Instructions �Recorded
glipizide 10 mg tablet 10 mg PO BID 02/04/21
levothyroxine 50 mcg tablet 50 mcg PO DAILY 02/04/21
metformin 1,000 mg tablet 1,000 mg PO BID 02/04/21
omeprazole 40 mg capsule,delayed 40 mg PO DAILY 02/04/21
release
atorvastatin 40 mg tablet 40 mg PO DAILY 11/19/24
duloxetine 30 mg capsule,delayed 30 mg PO BID 11/19/24
release
furosemide 40 mg tablet 80 mg PO DAILY 11/19/24
semaglutide 14 mg tablet (Rybelsus) 14 mg PO DAILY 11/19/24
spironolactone 100 mg tablet 100 mg PO DAILY 11/19/24
atomoxetine 40 mg capsule 40 mg PO DAILY 01/30/25
(Strattera)
carvedilol 3.125 mg tablet (Coreg) 3.125 mg PO BID 01/30/25
lactulose 20 gram oral packet 20 g PO BIDPRN PRN laxative effect 01/30/25
mineral oil (Fleet Mineral Oil 118 ml [place] DAILYPRN PRN Constipation 01/30/25
enema)
polyethylene glycol 3350 17 8.5 g PO DAILYPRN PRN Constipation 01/30/25
gram/dose oral powder (Miralax)
sertraline 25 mg tablet 75 mg PO DAILY 01/30/25
Review of Systems
-
Unable to obtain full review of systems at this time due to: Other (HE on admission some drifting off but answering most questions )
History Source: Patient
Constitutional: Reports No Symptoms
EENT: Reports No Symptoms
Respiratory: Reports Trouble Breathing (at times)
Cardiac: Reports No Symptoms
Abdomen/GI: Reports No Symptoms
: Reports No Symptoms and Other (denies hematuria or vaginal bleeding)
Musculoskeletal: Reports No Symptoms
Skin: Reports No Symptoms
Neurological: Reports No Symptoms
Endocrine: Reports No Symptoms
Hematologic/Lymphatic: Reports No Symptoms
Vital Signs
Temp Pulse Resp BP Pulse Ox
98.4 F 63 19 107/59 98
01/31/25 07:55 01/31/25 10:00 01/31/25 10:00 01/31/25 10:00 01/31/25 10:00
Physical Exam
Exam
General: Other (pt resting lying on side opens eyes to voice and answering most questions )
HEENT: Normocephalic and Anicteric
Cardiac: Regular Rhythm
GI: Soft, Non Tender and Non Distended (limited as pt declines to turn on back )
Rectal: Other (brown stool per staff )
Musculoskeletal: No Clubbing and No Cyanosis
Skin: Warm and Dry
Neuro: Other (awakens to voice )
Psych: Calm
Results
WBC 8.7 10^3/uL (4.8-10.8) 01/31/25 05:35
Hgb 11.8 g/dL (12.0-16.0) L 01/31/25 05:35
Hct 33.3 % (37.0-47.0) L 01/31/25 05:35
MCV 88.3 fL (81.0-99.0) 01/31/25 05:35
Plt Count 175 10^3/uL (130-400) 01/31/25 05:35
Absolute Neuts (auto) 6.5 10^3/uL (1.4-6.5) 01/30/25 14:47
PT 16.5 Sec (11.4-14.6) H 01/30/25 14:47
INR 1.28 01/30/25 14:47
APTT 31.9 Sec (23.4-35.0) 01/30/25 14:47
Sodium 141 mmol/L (135-145) 01/31/25 05:35
Potassium 4.7 mmol/L (3.5-5.1) 01/31/25 05:35
Chloride 110 mmol/L (98-107) H 01/31/25 05:35
Carbon Dioxide 23 mmol/L (22-30) 01/31/25 05:35
BUN 28 mg/dl (7-17) H 01/31/25 05:35
Creatinine 0.8 mg/dL (0.6-1.0) 01/31/25 05:35
Calcium 9.8 mg/dl (8.4-10.2) 01/31/25 05:35
Total Bilirubin 1.2 mg/dl (0.2-1.3) 01/31/25 05:35
AST 45 U/L (14-36) H 01/31/25 05:35
ALT 42 U/L (0-35) H 01/31/25 05:35
Alkaline Phosphatase 70 U/L (38-126) 01/31/25 05:35
Diagnostic Image Results:
01/31 US doppler pending
01/30- CXR no acute CP process
11/22/24 MR Abdomen W/o  W Contrast
1. SEVERE PORTAL HYPERTENSION with LARGE LEFT UPPER QUADRANT VARICES, gastroesophageal varices, and severe splenorenal shunting.
2. Large nichole hepatis and portacaval lymph nodes. Diagnostic possibilities are (1) benign inflammatory or infectious lymphadenopathy or (2) malignant lymphadenopathy (metastatic disease or lymphoma).
3. Mild hepatic cirrhosis.
4. Mild intrahepatic biliary dilatation.
5. Minimal upper abdominal ascites.
6. Cholelithiasis.
Prior GI Procedures:
EGD: 09/2024 salguti - No gross lesions in the entire esophagus.
- Z-line irregular, 41 cm from the incisors. WATS-3D
brush biopsy specimens obtained. Biopsied.
- A large amount of food (residue) in the stomach.
- Normal examined duodenum.
bx no metaplasia
EGD 09/2021 - Normal examined duodenum.
- Multiple gastric polyps.
- Small hiatal hernia.
- Z-line irregular, 39 cm from the incisors. WATS-3D
brush biopsy specimens obtained. Biopsied.
- No gross lesions in the entire esophagus.
Colonoscopy: elsie 04/2021 - The examined portion of the ileum was normal.
- Two non-bleeding colonic angioectasias. Treated with
argon plasma coagulation (APC).
- One 3 mm polyp in the transverse colon, removed with
a jumbo cold forceps. Resected and retrieved.
- Normal mucosa in the entire examined colon. Biopsied.
bx HP, neg microscopic colitis
Assessment / Plan
-
Pt is a 64yo with hx ETOH cirrhosis with prior ascites chowdhury's, LACEY, CHF, HTN, NIDDM, psoriasis, anxiety/depression, ADHD, hypothyroidism/partial thyroidectomy with onset of change in mental status with slow responses and word finding difficulty.
On admission noted with WBC 11,500, hbg 11,500, platelets 194, INR 1,28, Na 137, bili 0.9, AST 60, ALT 49, alk phos 86 and ammonia of 82 then rise to 125. Pt follows with Dr. Hickman prior to admission. Hx multiple EGD's in past last 09/2024
with no lesions in esophagus, irreg z line, large amount of food in stomach. WATS-3D. bx neg metaplasia, colon 2020 with non bleeding colonic angioectasias, s/p APC, polyp TC, bx HP no microscopic colitis. Recent MRI with severe portal HTN with
large left upper quad varices, spenorenal shunting, large portohepatic and portacaval nodes with concern for inflammatory/infectious, malignant lymphadenopathy, mets vs lymphoma, changes of cirrhosis, mild intrahepatic biliary dilation and upper abd
ascites, cholelithiasis. She was recommended follow up with D
per OP chart prior liver work with hepatitis, JENNIFER, AMA, ASMA. ceruloplasmin, A1At,, celiac, iron studies, neg, prior para not enough fluid to calculate SAAG
-confusion with concern for hepatic encephalopathy and elevated ammonia level on admission
-ETOH cirrhosis-
-hx ascites
-abnormal MRI in 10/2024- with severe portal HTN and large portohepatic, portocaval nodes
-mild leukocytosis on admission
-mild anemia with hx iron deficiency
-hypoalbuminemia
other med problems:
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
-hx colonic angioectasia with prior APC
-NIDDM -on Rybelsus
-HTN
-CHF
-psoriosis
-anxiety/depression
-ADHD
-hypothyroidism/partial thyroidectomy
PLAN:
ETiology of confusion with concern for hepatic encephalopathy-- trigger - infection with mild leukocytosis, bleeding (though hbg stable), progression on disease(no prior hx not on lactulose or Xifaxan prior to admission), electrolytes appear stable
concern for hx ETOH cirrhosis with decompensation but prior MRI in October also questions enlarged nodes with possible lymphoma or malignant process in setting of normal INR, Albumin, platelet with low MELD
check US doppler -- await results to see if any ascites to drain-- to calculate SAAG to ensure liver vs cardiac related
may need CT to follow up on enlarged noted noted on prior MRI
UA neg, CXR stable will add blood cx
cont Lactulose 20mg Q 4 hours started on admission- reviewed with nursing will need adjustment down when more alert and after serveral stools
she is on chronic Rybelsus so make take longer to clear
cont Xifaxan
-MELD 3.0-- 9
pt was on Spironolactone 100mg and Lasix 80mg prior to admission with hx prior cardiac issue and ascites in past
cont Coreg (started by cards) but no hx EV noted
ok for 2 gram Na diet
ETOH abstinence-- per office note last 2023 pt denies more recent use
-
-
Thank you for consultation and allowing me to participate in the patient's care. Please call the [facility] measure[facility] GI physician during the after hours with any questions or concerns.
--- NOTE | 2025-01-31 11:40 | CON.CAR ---
Addendum entered and electronically signed by Rg Choe MD 01/31/25 16:49:
I saw and examined the patient.
The Brick Tester's note was reviewed and I agree with the note.
Comment:
GEN: No distress, awake,
HEENT: supple, anicteric, mmm
LUNGS: CTA, no wheezes/rales
CV: Reg, S1/S2, 1/6 syst LSB, no gallop
ABD: soft, BS+, NT/ND
EXT: No edema
NEURO: Gross non-focal
SKIN: No rash
Plan:
64-year-old female with past medical history of alcohol cirrhosis, portal hypertension, chronic heart failure with preserved ejection fraction, hypertension, and diabetes presents with nausea, vomiting, severe constipation, and change in mental
status. She has had several hospitalizations and office visits regarding these complaints. On January 30, 2025 she had continued confusion and was sent to the emergency room where she was found to have hepatic encephalopathy and rapid atrial flutter.
The patient ultimately spontaneously converted back into sinus rhythm. She remains lethargic and is a very poor historian. She denies any current chest pains, shortness of breath, or palpitations. She denies any history of bleeding. Cardiac
troponin was found to be abnormal at 0.3-0.4. proBNP is also modestly elevated 4000.
Echocardiogram today with normal LVEF of 55 to 60%, mild to moderate MR, aortic sclerosis, mild AI, PA pressure of 35
Fortunately she is back in the sinus rhythm today. With her alcoholic cirrhosis she is not an ideal candidate for full anticoagulation. She also has a poor history of medical compliance. For now I would hold off on full anticoagulation. We
reasonable to add aspirin 81 mg daily. Recommend continue carvedilol 3.125 mg twice daily. I am not sure if she was compliant with this medication.
Continue spironolactone. Holding Lasix for now but would likely restart over next 24 to 48 hours.
Abnormal troponin is likely nonischemic myocardial injury.
Ammonia level remains high at 125. Continue treatments per GI with lactulose and Xifaxan
Would hold statin for now with liver disease.
Original Note:
Consultation
Consultation Request
Date/Time Consultation Requested: 01/30/25 at 2123
Date/Time Consultation Performed: 01/31/25 at 1030
Requesting Provider: Dr. Cano
Performing Provider: Dr. Choe
Reason for Consultation: Newly diagnosed atrial flutter
Medical History
-
History of Present Illness:
Patient came to the ER yesterday with 2 weeks worth of lethargy and was admitted with acute hepatic encephalopathy and cardiology is consulted for new atrial flutter. Patient was last seen in the cardiology office on 12/19/2024 and at that time was
started on Coreg 3.125 mg BID. Patient was seen by GI the next day with regards to her newer diagnosis of alcoholic cirrhosis and concern for portal HTN. The patient was already working to abstain from alcohol and has been sober since 08/2024.
Patient was recommended to follow-up at [facility] due to her significant portal lymphadenopathy and also to see hepatology. Patient then had a mix of visits and telemedicine interactions with her PCP and ER evaluations starting on
01/18/2025 with vomiting, but no reported hematemesis. Patient was started on Zofran. Patient was in the ER on 01/26/2025 with constipation and was manually disimpacted. She saw her PCP again on 01/30/2025 and was essentially refusing to be evaluated
in the ER initially, but due to ongoing changes in mental status was finally seen in the ER and admitted with acute hepatic encephalopathy and rapid atrial flutter as noted above. Since then the patient has spontaneously converted to SR and remains
in SR. The patient continues to be lethargic and is not capable of providing much history.
PMH:
Alcoholic cirrhosis
Severe portal HTN
Chronic HFpEF
HTN
Hyperlipemia
DM 2
Past Medical History
Past Medical History: Other (in HPI)
Past Surgical History: Gynecological (breast biopsy), Orthopedic and Tonsilectomy
Social History
Tobacco: Non-Smoker
Alcohol: Former (previously drink one to 1.5 bottles of wine nightly, but sober since 08/2024)
Drug: None
Personal: Single
Living: Alone
Family History
Family History: CAD, Diabetes and Hypertension
Allergies / Home Medications
Allergy/AdvReac Type Severity Reaction Status Date / Time
adhesive tape Allergy Swelling Verified 01/30/25 21:26
clarithromycin Allergy Rash/vomiti Verified 01/30/25 21:26
ng
erythromycin base Allergy Tongue Verified 01/30/25 21:26
Swelling
nitrofurantoin Allergy Vomiting Verified 01/26/25 18:25
[From Macrobid]
ofloxacin Allergy Rash/vomiti Verified 01/30/25 21:26
ng
Quinolones Allergy Rash Verified 01/30/25 21:26
Sulfa (Sulfonamide Allergy Rash Verified 01/30/25 21:26
Antibiotics)
sulfamethoxazole Allergy Rash Verified 01/30/25 21:26
trimethoprim Allergy Rash Verified 01/30/25 21:26
�Medication �Instructions �Recorded �Confirmed �Type
glipizide 10 mg tablet 10 mg PO BID 02/04/21 01/30/25 History
levothyroxine 50 mcg tablet 50 mcg PO DAILY 02/04/21 01/30/25 History
metformin 1,000 mg tablet 1,000 mg PO BID 02/04/21 01/30/25 History
omeprazole 40 mg capsule,delayed 40 mg PO DAILY 02/04/21 01/30/25 History
release
atorvastatin 40 mg tablet 40 mg PO DAILY 11/19/24 01/30/25 History
duloxetine 30 mg capsule,delayed 30 mg PO BID 11/19/24 01/30/25 History
release
furosemide 40 mg tablet 80 mg PO DAILY 11/19/24 01/30/25 History
semaglutide 14 mg tablet (Rybelsus) 14 mg PO DAILY 11/19/24 01/30/25 History
spironolactone 100 mg tablet 100 mg PO DAILY 11/19/24 01/30/25 History
atomoxetine 40 mg capsule 40 mg PO DAILY 01/30/25 01/30/25 History
(Strattera)
carvedilol 3.125 mg tablet (Coreg) 3.125 mg PO BID 01/30/25 01/30/25 History
lactulose 20 gram oral packet 20 g PO BIDPRN PRN laxative effect 01/30/25 01/30/25 History
mineral oil (Fleet Mineral Oil 118 ml [place] DAILYPRN PRN Constipation 01/30/25 01/30/25 History
enema)
polyethylene glycol 3350 17 8.5 g PO DAILYPRN PRN Constipation 01/30/25 01/30/25 History
gram/dose oral powder (Miralax)
sertraline 25 mg tablet 75 mg PO DAILY 01/30/25 01/30/25 History
Review of Systems
-
History Source: Patient
All other systems: Negative unless noted
Physical Exam
Vital Signs
Temp Pulse Resp BP Pulse Ox
98.4 F 63 19 107/59 98
01/31/25 07:55 01/31/25 10:00 01/31/25 10:00 01/31/25 10:00 01/31/25 10:00
GEN: NAD. AAO to person, place and situation
HEENT: MMM
LUNGS: RA. Clear anterolaterally
CV: SR on tele. Reg, S1/S2, 1 syst LSB
ABD: soft, BS+, NT, ND
EXT: No clubbing, cyanosis, lesions or edema B/L
NEURO: Gross non-focal
SKIN: No rash
Lab Results
01/31/25 05:35
01/31/25 05:35
Troponin I 0.300 ng/ml H* 01/31/25 05:35
Aoy-G-Gygpzgrtaxu Pept 4410 pg/ml 01/30/25 14:47
Impression / Plan
-
PCP: Dr. Esmer Cornejo
Card: Dr. Mosqueda
Impression:
Admitted with change in mental status and acute hepatic encephalopathy 01/30/25
Acute hepatic encephalopathy
Newly diagnosed paroxysmal typical atrial flutter/tachycardia of unclear duration 01/30/25 with spontaneous conversion to SR 01/31/25
Elevated Troponin
Alcoholic cirrhosis
Severe portal HTN
Chronic HFpEF
HTN
Hyperlipemia
DM 2
Echo 01/31/2025: EF 55 to 60%, stage II diastolic dysfunction, upper normal RV size with normal function, mild to moderate MR, aortic sclerosis without stenosis, mild aortic regurgitation, mild TR with PAP 30 to 35 mmHg
Plan:
-Patient came to the ER yesterday with 2 weeks worth of lethargy and was admitted with acute hepatic encephalopathy and cardiology is consulted for new atrial flutter. Patient was last seen in the cardiology office on 12/19/2024 and at that time was
started on Coreg 3.125 mg BID. Patient was seen by GI the next day with regards to her newer diagnosis of alcoholic cirrhosis and concern for portal HTN. The patient was already working to abstain from alcohol and has been sober since 08/2024.
Patient was recommended to follow-up at [facility] due to her significant portal lymphadenopathy and also to see hepatology. Patient then had a mix of visits and telemedicine interactions with her PCP and ER evaluations starting on
01/18/2025 with vomiting, but no reported hematemesis. Patient was started on Zofran. Patient was in the ER on 01/26/2025 with constipation and was manually disimpacted. She saw her PCP again on 01/30/2025 and was essentially refusing to be evaluated
in the ER initially, but due to ongoing changes in mental status was finally seen in the ER and admitted with acute hepatic encephalopathy and rapid atrial flutter as noted above. Since then the patient has spontaneously converted to SR and remains
in SR. The patient continues to be lethargic and is not capable of providing much history.
-ECG reviewed by me initially shows atrial tachycardia and second EKG looks like atrial flutter that is typical and ECG this morning is SB and QTc 420 ms
-Atrial flutter is a new diagnosis. Patient has spontaneously converted to sinus and remains in sinus.
-Hgb was 13.5 on admission and is down to 11.8 on 01/31/2025, labs reviewed by me. Patient has not been on OAC in the past. Currently ordered heparin SQ for DVT prophylaxis. Will confer with GI to see if there are any contraindications to patient
being on OAC from their standpoint given the history of severe portal hypertension, there are no reports of varices and patient has not had hematemesis or melena.
-Cardizem gtt was started on admission and then stopped with conversion to SR on 01/31/25
-Outpatient dose of Coreg 3.125 mg BID was held initially in favor of Cardizem gtt and then with development of SB following conversion. Will restart Coreg, ordered by me
-pro-BNP 4410. No evidence of acute HF on CXR. Outpatient dose of Lasix 80 mg daily is on hold due to diarrhea.
-EF preserved at 55 to 60% by echo on 01/31/2025
-Outpatient dose of spironolactone 100 mg daily has been continued
-Coreg being restarted as noted above
-Patient is not chronically on DANA/ARB/ARNI and will not add at this time due to intermittent hypotension
-Will not add SGLT2 inhibitor due to change in mental status
-Initial troponin 0.315, then 0.288 and then 0.3. Troponin largely flat. No WMA on echo. No CP or acute ischemic changes on ECG. Will manage today as a nonischemic myocardial injury troponin elevation
-GI is following for hepatic encephalopathy in the history of portal HTN. Lactulose has been ordered plus Xifaxan.
[2025-01-31 13:13] LABS: Glucose - Point of Care 114 mg/dl (70-99)
--- NOTE | 2025-01-31 13:13 | PTCARENOTE ---
Patient returned from US; confirmed with Rin Boland NP with GI, that patient may continue with current diet.
--- NOTE | 2025-01-31 13:38 | W.PN.HOSP.TC ---
Today's Communication/Plan
-
Lactulose, titrate for 2-3 bowel movements
Rifaximin
AV veronica blockade and anticoagulation as per cardiology, at this time can hold due to bradycardia. High risk for falls
Follow GI, cardiology recommendations
Assessment / Plan
Assessment / Plan
Physical Exam
General: Comfortable, Conversant and Other (Appears thin)
HEENT: NormoCephalic and Anicteric
Respiratory: Clear and Non Labored Respirations
Cardiac: S1/S2, Regular Rhythm and Tachycardia
GI: Soft and Non Tender
Rectal: Deferred by Provider
Musculoskeletal: No Clubbing, No Cyanosis and No Edema
Skin: Warm and Dry
Neuro: Awake, Alert, Orientedx3; and Nonfocal/grossly intact
Psych: Calm
Acute Hepatic Encephalopathy secondary to Alcoholic Liver Disease
Portal hypertension
Transaminitis
-Consult GI
-Continue Lactulose, titrate to 2-3 bowel movements
-Start Xifaxan
-Check ultrasound Dopplers, may need to have paracentesis
� Already on spironolactone
� 2 g sodium diet
� Alcohol abstinence, last drink 2023 as per outpatient note
�Holding diuretic for now
Atrial Flutter with Rapid Ventricular Response, reverted to sinus
-Rate remains poorly controlled on max dose of diltiazem infusion
-Give Lopressor 5mg IV NOW - If heart rate responds plan to start Toprol XL
�Holding beta-esau due to bradycardia at this moment, defer to cardiology on restarting AV veronica blockade
� Defer to cardiology for restarting anticoagulation although high risk for falls
Elevated Troponin
-likely non-ischemic myocardial injury to uncontrolled heart rate
-Continue to trend troponin
-Check echocardiogram
�Cardiology consulted
Chronic HFpEF
-Echo Jul 2022: Normal left ventricular size, wall thickness and systolic function with EF 55-60%. Stage II Diastolic dysfunction
-Hold Lasix for now with possible diarrhea
-Continue spironolactone
-Monitor Daily Weights
Essential Hypertension
-Monitor blood pressure closely while on diltiazem infusion
Hyperlipidemia
-Continue atorvastatin
Diabetes Mellitus, Type II
-Hold metformin, glipizide and semaglutide
-Monitor sugars and continue coverage insulin
Hypothyroidism
-Continue levothyroxine
GERD / Monk's Esophagus
-Continue Protonix
Anxiety/Depression
-Continue sertraline and duloxetine
DVT proph: SC Heparin
Code Status: Full Code
Anticipated Discharge: > 48 hours
Subjective/Interval History
-
Date of Service: January 31, 2025
Mental status improved
Objective Data
-
Labs:
Laboratory Results
01/31/25
05:35
WBC 8.7
Hgb 11.8 L
Hct 33.3 L
Plt Count 175
Sodium 141
Potassium 4.7
Chloride 110 H
Carbon Dioxide 23
BUN 28 H
Creatinine 0.8
Glucose 211 H
Calcium 9.8
Total Bilirubin 1.2
AST 45 H
ALT 42 H
Alkaline Phosphatase 70
Vital Signs:
Vital Signs
Temp Pulse Resp BP Pulse Ox
98.4 F 58 16 99/55 97
01/31/25 07:55 01/31/25 11:00 01/31/25 11:00 01/31/25 11:00 01/31/25 11:00
I&O
01/30/25 01/31/25 02/01/25
06:59 06:59 06:59
Intake Total 480 / 480
Balance 480 / 480
Review of Systems
-
History Source: Patient
All other systems: Not reviewed unless documented
Data Reviewed
-
Diagnostic Radiology: Report Reviewed by me
CT Scan: Report Reviewed by me
Labs: Labs Reviewed by me
--- NOTE | 2025-01-31 16:19 | CM ---
Addendum entered by Erica Villa RN 01/31/25 16:38:
Noting Hx Depression/Anxiety - Patient's friend Ramila confirms that the patient has not been in an inpatient Psych facility in the past 2 years.
Original Note:
Patient with Dx Acute Hepatic Encephalopathy secondary to Alcoholic Liver Disease, A flutter now in NSR, elevated troponins. Room air. Receiving IV Cardizem, lactulose. Per nurse'; confused, forgetful. PT recommends skilled rehab. OT Eval
pending.
Met with patient and spoke with her friend Ramila by phone;
patient awake, moves and speaks slowly and able to answer most initial assessment questions.
The patient resides alone in a 2nd story garage apartment with 1 flight inside narrow steep stairs.
SHe was independent in ADLs and ambulation until about 3 weeks ago.
For the past few weeks the patient has been staying in bed stating she is weak, tired and sleepy.
She has recently required assistance to transfer out of bed but has not been ambulating.
She has a fridge stocked with food mostly ordered online, that she drove and picked up, but has not been eating for a few weeks.
Patient states she fell but cannot seem to remember when, Ramila does not know of any falls.
No DME, prior VN or SNF.
PCP - [facility]
Pharmacy- [facility]
The patient is on disability and Ramila may be able to assist with her financial info needed for a LTC SNF application.
The patient has no family, no children and no POA.
She has an outpatient therapist through [facility] [facility] program.
Ramila talks with patient on the phone and sees her once/month as she lives 40 minutes away, works as a therapist and has her own family to care for. The patient has a few friends who live in [place] [place]
The patient agrees to SNF for rehab and Ramila would like her to go to SNF near [place] if possible, otherwise [place] ok.
SNF referrals placed.
Plan follow up SNF referrals.
--- NOTE | 2025-01-31 16:23 | W.CHA2DS2VAS ---
[id number] Score
Score
Age in Years (65=0, 65-74=1, >/=75=2): <65
Sex (Female=+1): Female
Congestive Heart Failure History (Yes=+1): Yes
Hypertension History (Yes=+1): Yes
Stroke/TIA/Thromboembolism History (Yes=+2): No
Vascular Disease History (Yes=+1): No
Diabetes Mellitus (Yes=+1): Yes
Score >/=2 is otherwise an anticoagulation candidate: 4
[2025-01-31] MEDS: NOVOLOG FLEXPEN-LOW RESISTANCE 1 UNITS SC (16:39)
[2025-01-31 16:49] LABS: Glucose - Point of Care 177 mg/dl (70-99)
--- NOTE | 2025-01-31 18:40 | PTCARENOTE ---
Patient with no bm today; Dr Philip updated.
[2025-01-31] MEDS: COREG 3.125 MG PO (20:06)
[2025-01-31 21:55] LABS: Glucose - Point of Care 243 mg/dl (70-99)
[2025-02-01] VITALS (24 sets, daily range): BP systolic 109–149; BP diastolic 56–104; BMI 19.6
[2025-02-01] MEDS: DUPHALAC/CHRONULAC 20 GRAMS PO ×5 (01:59→17:58)
[2025-02-01 04:30] LABS: Hematocrit 33.1 % (37.0-47.0); Hemoglobin 11.6 g/dL (12.0-16.0); Mean Corpuscular Hgb 31.7 pg (27.0-31.0); Mean Corpuscular Volume 90.4 fL (81.0-99.0); Platelet Count 135 10^3/uL (130-400); Red Blood Cell Count 3.66 10^6/uL (4.20-5.40); Red Cell Dist. Width 13.4 % (11.5-14.5); White Blood Cell Count 10.1 10^3/uL (4.8-10.8)
[2025-02-01 04:33] LABS: Ammonia 43 umol/L (9-30)
[2025-02-01 04:41] LABS: INR 1.21; PT 15.8 Sec (11.4-14.6)
[2025-02-01 04:47] LABS: ALT (SGPT) 43 U/L (0-35); AST (SGOT) 44 U/L (14-36); Albumin 3.4 g/dl (3.5-5.0); Alkaline Phosphatase 79 U/L (38-126); Blood Urea Nitrogen 21 mg/dl (7-17); Calcium 9.8 mg/dl (8.4-10.2); Carbon Dioxide 22 mmol/L (22-30); Chloride 109 mmol/L (98-107); Estimated Creatinine Clearance 68 ml/min; Glucose 184 mg/dl (70-99); Potassium 4.4 mmol/L (3.5-5.1); Sodium 141 mmol/L (135-145); Total Bilirubin 1.5 mg/dl (0.2-1.3); Total Protein 5.9 g/dl (6.3-8.2); eGFR > 60.00
[2025-02-01 05:20] LABS: AFP Male/Tumor Marker 1.36 ng/ml
[2025-02-01] MEDS: SYNTHROID 50 MCG PO (05:38)
--- NOTE | 2025-02-01 06:33 | PTCARENOTE ---
No acute events overnight. Patient with copious amount of explosive diarrhea at beginning of shift. Continues to be slow to respond and confused at times. AM ammonia down to 43. Continues with q4h lactulose.
[2025-02-01 08:30] LABS: Glucose - Point of Care 159 mg/dl (70-99)
[2025-02-01] MEDS: NOVOLOG FLEXPEN-LOW RESISTANCE 1 UNITS SC (09:40)
[2025-02-01] MEDS: COREG 3.125 MG PO ×2 (09:41→20:44)
[2025-02-01] MEDS: XIFAXAN 550 MG PO ×2 (09:43→20:46)
[2025-02-01] MEDS: ALDACTONE 100 MG PO (09:43)
[2025-02-01] MEDS: PROTONIX 40 MG PO (09:43)
[2025-02-01] MEDS: ZOLOFT 75 MG PO (09:43)
[2025-02-01] MEDS: CYMBALTA DELAYED RELEASE 30 MG PO ×2 (09:43→20:44)
[2025-02-01] MEDS: HEPARIN 5000 UNITS SC ×2 (09:46→20:46)
[2025-02-01 12:37] LABS: Glucose - Point of Care 248 mg/dl (70-99)
[2025-02-01] MEDS: NOVOLOG FLEXPEN-LOW RESISTANCE 2 UNITS SC ×2 (13:15→18:45)
--- NOTE | 2025-02-01 15:08 | W.PN.CARDCBS ---
Addendum entered and electronically signed by Rg Choe MD 02/01/25 15:38:
I saw and examined the patient.
The Assistant Associate Full Professor's note was reviewed and I agree with the note.
Comment:
GEN: No distress, awake, Ox3
HEENT: supple, anicteric, mmm
LUNGS: CTA, no wheezes/rales
CV: Reg, S1/S2, 1/6 syst LSB, no gallop
ABD: soft, BS+, NT/ND
EXT: No edema
NEURO: Gross non-focal
SKIN: No rash
Plan:
She is more alert today and her ammonium is down in the 40s. She remains in sinus rhythm. Will continue carvedilol. With her history of advanced liver disease, cirrhosis, portal hypertension and encephalopathy I would not recommend full
anticoagulation at this time. Would add aspirin 81 mg daily.
Will resume Lasix in a.m. with her liver disease and chronic heart failure with preserved ejection fraction.
Will arrange outpatient follow-up.
Original Note:
Today's Communication / Plan
-
remains in SR. continue coreg
not OAC candidate
continue treatment of hepatic encephalopathy
consider resuming lasix in AM
will arrange OP cardiac follow up
Impression / Plan
-
PCP: Dr. Esmer Cornejo
Card: Dr. Mosqueda
Impression:
Admitted with change in mental status and acute hepatic encephalopathy 01/30/25
Acute hepatic encephalopathy
Newly diagnosed paroxysmal typical atrial flutter of unclear duration 01/30/25 with spontaneous conversion to SR 01/31/25
Elevated Troponin
Alcoholic cirrhosis
Severe portal HTN
Chronic HFpEF
HTN
Hyperlipemia
DM 2
Echo 01/31/2025: EF 55 to 60%, stage II diastolic dysfunction, upper normal RV size with normal function, mild to moderate MR, aortic sclerosis without stenosis, mild aortic regurgitation, mild TR with PAP 30 to 35 mmHg
Plan:
-she presented with change in mental status and acute hepatic encephalopathy in setting of known cirrhosis and portal HTN. ammonia level has improved s/p lactulose however she remains with some confusion. continue lactulose and xifaxan per
GI/primary service
-she presented in aflutter, new diagnosis for patient. she spontaneously converted to SR. on review of tele overnight remains in SR with 1 very brief run of atach overnight. continue coreg 3.125mg BID
-she is not felt to be OAC candidate given significant liver disease and fall risk
-pro-BNP 4410. No evidence of acute HF on CXR. Outpatient dose of Lasix 80 mg daily is on hold due to possible diarrhea, consider resuming in AM. continue OP spironolactone
-EF preserved at 55 to 60% by echo on 01/31/2025
-Will not add SGLT2 inhibitor due to change in mental status
-Trops stable: 0.315, then 0.288 and then 0.3. No WMA on echo. No CP or acute ischemic changes on ECG. Will manage as a nonischemic myocardial injury
-will arrange OP cardiac follow up
-d/w nursing
PREADMIT DATA:
-Patient came to the ER yesterday with 2 weeks worth of lethargy and was admitted with acute hepatic encephalopathy and cardiology is consulted for new atrial flutter. Patient was last seen in the cardiology office on 12/19/2024 and at that time was
started on Coreg 3.125 mg BID. Patient was seen by GI the next day with regards to her newer diagnosis of alcoholic cirrhosis and concern for portal HTN. The patient was already working to abstain from alcohol and has been sober since 08/2024.
Patient was recommended to follow-up at [facility] due to her significant portal lymphadenopathy and also to see hepatology. Patient then had a mix of visits and telemedicine interactions with her PCP and ER evaluations starting on
01/18/2025 with vomiting, but no reported hematemesis. Patient was started on Zofran. Patient was in the ER on 01/26/2025 with constipation and was manually disimpacted. She saw her PCP again on 01/30/2025 and was essentially refusing to be evaluated
in the ER initially, but due to ongoing changes in mental status was finally seen in the ER and admitted with acute hepatic encephalopathy and rapid atrial flutter as noted above. Since then the patient has spontaneously converted to SR and remains
in SR. The patient continues to be lethargic and is not capable of providing much history.
Progress Note - Class B Driver
Subjective
Date of Service: February 01, 2025
c/o thirst.
Objective
Labs:
02/01/25 04:12
02/01/25 04:12
Labs
Hgb 11.6 g/dL (12.0-16.0) L 02/01/25 04:12
Hct 33.1 % (37.0-47.0) L 02/01/25 04:12
Plt Count 135 10^3/uL (130-400) D 02/01/25 04:12
PT 15.8 Sec (11.4-14.6) H 02/01/25 04:12
INR 1.21 02/01/25 04:12
APTT 31.9 Sec (23.4-35.0) 01/30/25 14:47
Sodium 141 mmol/L (135-145) 02/01/25 04:12
Potassium 4.4 mmol/L (3.5-5.1) 02/01/25 04:12
BUN 21 mg/dl (7-17) H 02/01/25 04:12
Creatinine 0.8 mg/dL (0.6-1.0) 02/01/25 04:12
Glucose 184 mg/dl (70-99) H 02/01/25 04:12
Troponins
01/30/25 01/30/25 01/31/25
14:47 19:12 01:00
Troponin I 0.315 H* 0.288 H* Cancelled
01/31/25
05:35
Troponin I 0.300 H*
Vital Signs and I&O:
Vital Signs
Temp Pulse Resp BP Pulse Ox
97.8 F 66 20 146/67 100
02/01/25 11:42 02/01/25 05:00 02/01/25 05:00 02/01/25 05:00 02/01/25 05:00
Vital Signs
Temp Pulse Resp BP Pulse Ox
97.8 F 66 20 146/67 100
02/01/25 11:42 02/01/25 05:00 02/01/25 05:00 02/01/25 05:00 02/01/25 05:00
Intake & Output
01/30/25 01/31/25 02/01/25 02/02/25
07:59 07:59 07:59 07:59
Intake Total 480 / 480 1200 / 1200 720 / 720
Balance 480 / 480 1200 / 1200 720 / 720
Physical Exam
Physical Exam
GEN: No distress, awake, alert but confused
HEENT: supple, anicteric, mmm, eomi
LUNGS: CTA B/L, no wheezes
CV: Reg, S1/S2, no murmur
ABD: soft, BS+, NT/ND
EXT: No cyanosis, clubbing. trace edema of B/L LE
NEURO: Gross non-focal
SKIN: Warm, pink, dry. No rash
--- NOTE | 2025-02-01 15:41 | W.PN.HOSP.TC ---
Today's Communication/Plan
-
Lactulose, titrate for 2-3 bowel movements
Rifaximin
Coreg
ASA
Resume Lasix tomorrow
Assessment / Plan
Assessment / Plan
Physical Exam
General: Comfortable, Conversant and Other (Appears thin)
HEENT: NormoCephalic and Anicteric
Respiratory: Clear and Non Labored Respirations
Cardiac: S1/S2, Regular Rhythm and Tachycardia
GI: Soft and Non Tender
Rectal: Deferred by Provider
Musculoskeletal: No Clubbing, No Cyanosis and No Edema
Skin: Warm and Dry
Neuro: Awake, Alert, Orientedx3; and Nonfocal/grossly intact
Psych: Calm
Acute Hepatic Encephalopathy secondary to Alcoholic Liver Disease
Portal hypertension
Transaminitis
-Consult GI
-Continue Lactulose, titrate to 2-3 bowel movements
-Start Xifaxan
-Doppler ultrasound with no evidence of clotting, significant ascites. Suggestion of portal hypertension
� Already on spironolactone
� 2 g sodium diet
� Alcohol abstinence, last drink 2023 as per outpatient note
�Holding diuretic for now, anticipate starting tomorrow
Atrial Flutter with Rapid Ventricular Response, reverted to sinus
-Rate remains poorly controlled on max dose of diltiazem infusion
Resuming Coreg
� Defer to cardiology for restarting anticoagulation although high risk for falls�hold off at this time
� Aspirin okay
Elevated Troponin
-likely non-ischemic myocardial injury to uncontrolled heart rate
-Continue to trend troponin
-Check echocardiogram
�Cardiology consulted
Chronic HFpEF
-Echo Jul 2022: Normal left ventricular size, wall thickness and systolic function with EF 55-60%. Stage II Diastolic dysfunction
-Hold Lasix for now with possible diarrhea, resume tomorrow
-Continue spironolactone
-Monitor Daily Weights
Essential Hypertension
-Monitor blood pressure closely while on diltiazem infusion
Hyperlipidemia
-Continue atorvastatin
Diabetes Mellitus, Type II
-Hold metformin, glipizide and semaglutide
-Monitor sugars and continue coverage insulin
Hypothyroidism
-Continue levothyroxine
GERD / Monk's Esophagus
-Continue Protonix
Anxiety/Depression
-Continue sertraline and duloxetine
DVT proph: SC Heparin
Code Status: Full Code
Anticipated Discharge: 24 - 48 hours
Subjective/Interval History
-
Date of Service: February 01, 2025
Mental status improved although still with difficulty in hand coordination
Objective Data
-
Labs:
Laboratory Results
02/01/25
04:12
WBC 10.1
Hgb 11.6 L
Hct 33.1 L
Plt Count 135 D
PT 15.8 H
INR 1.21
Sodium 141
Potassium 4.4
Chloride 109 H
Carbon Dioxide 22
BUN 21 H
Creatinine 0.8
Glucose 184 H
Calcium 9.8
Total Bilirubin 1.5 H
AST 44 H
ALT 43 H
Alkaline Phosphatase 79
Vital Signs:
Vital Signs
Temp Pulse Resp BP Pulse Ox
98.4 F 66 20 146/67 100
02/01/25 15:39 02/01/25 05:00 02/01/25 05:00 02/01/25 05:00 02/01/25 05:00
I&O
01/31/25 02/01/25 02/02/25
06:59 06:59 06:59
Intake Total 480 / 480 1200 / 1200 720 / 720
Balance 480 / 480 1200 / 1200 720 / 720
Review of Systems
-
History Source: Patient
All other systems: Not reviewed unless documented
Data Reviewed
-
Diagnostic Radiology: Report Reviewed by me
CT Scan: Report Reviewed by me
Labs: Labs Reviewed by me
[2025-02-01] MEDS: TYLENOL 650 MG PO ×2 (15:57→20:45)
[2025-02-01] MEDS: ASPIR LOW (ENTERIC COATED) 81 MG PO (15:59)
[2025-02-01 16:52] LABS: Glucose - Point of Care 233 mg/dl (70-99)
--- NOTE | 2025-02-01 17:00 | PTCARENOTE ---
Patient had multiple BM'S today on bedpan, some INC. Patient oriented to self and place but has periods of confusion. Patient having difficulty with hand coordination and needs assistance with eating. Using call varma appropriately. Bed alarm on.
VS stable. SR on monitor.
--- NOTE | 2025-02-01 17:52 | W.PN.GI.CBS2 ---
Today's Communication / Plan
-
Monitor mental status
C/w lactulose and xifaximin
Assessment / Plan
-
Pt is a 64yo with hx ETOH cirrhosis with prior ascites chowdhury's, LACEY, CHF, HTN, NIDDM, psoriasis, anxiety/depression, ADHD, hypothyroidism/partial thyroidectomy with onset of change in mental status with slow responses and word finding difficulty.
On admission noted with WBC 11,500, hbg 11,500, platelets 194, INR 1,28, Na 137, bili 0.9, AST 60, ALT 49, alk phos 86 and ammonia of 82 then rise to 125. Pt follows with Dr. Hickman prior to admission. Hx multiple EGD's in past last 09/2024
with no lesions in esophagus, irreg z line, large amount of food in stomach. WATS-3D. bx neg metaplasia, colon 2020 with non bleeding colonic angioectasias, s/p APC, polyp TC, bx HP no microscopic colitis. Recent MRI with severe portal HTN with
large left upper quad varices, spenorenal shunting, large portohepatic and portacaval nodes with concern for inflammatory/infectious, malignant lymphadenopathy, mets vs lymphoma, changes of cirrhosis, mild intrahepatic biliary dilation and upper abd
ascites, cholelithiasis. She was recommended follow up with D
per OP chart prior liver work with hepatitis, JENNIFER, AMA, ASMA. ceruloplasmin, A1At,, celiac, iron studies, neg, prior para not enough fluid to calculate SAAG
Impression
-confusion with concern for hepatic encephalopathy and elevated ammonia level on admission
-ETOH cirrhosis
-hx ascites
-abnormal MRI in 10/2024- with severe portal HTN and large portohepatic, portocaval nodes
-mild leukocytosis on admission
-mild anemia with hx iron deficiency
-hypoalbuminemia
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
-hx colonic angioectasia with prior APC
-NIDDM -on Rybelsus
-HTN
-CHF
-psoriosis
-anxiety/depression
-ADHD
-hypothyroidism/partial thyroidectomy
Recommendations
- C/w lactulose and xifaximin
- Semaglutide may contribute to her constipation
- Abd US without ascites to tap
- C/w diuretics (lasix and aldactone)
- C/w coreg (EGD in 09/2024 neg for EV)
- Follow up MRI in March 2025 to follow up for lymphadenopathy seen in 10/2024
- C/w low salt diet
Will follow with you
Subjective
Subjective
Date of Service: February 01, 2025
She is tolerating diet. Denies abd pain, nausea/vomiting
Objective
Data Reviewed
Laboratory Data:
Laboratory Results
02/01/25 04:12
02/01/25 04:12
Laboratory Results
PT 15.8 Sec (11.4-14.6) H 02/01/25 04:12
INR 1.21 02/01/25 04:12
APTT 31.9 Sec (23.4-35.0) 01/30/25 14:47
Magnesium 1.6 mg/dl (1.6-2.3) 01/31/25 05:35
Total Bilirubin 1.5 mg/dl (0.2-1.3) H 02/01/25 04:12
AST 44 U/L (14-36) H 02/01/25 04:12
ALT 43 U/L (0-35) H 02/01/25 04:12
Alkaline Phosphatase 79 U/L (38-126) 02/01/25 04:12
Vital Signs and I&O:
Vital Signs
Temp Pulse Resp BP Pulse Ox
98.4 F 77 15 109/60 99
02/01/25 15:39 02/01/25 16:00 02/01/25 16:00 02/01/25 16:00 02/01/25 15:55
I&O
04/10/02/01/25 02/02/25
06:59 06:59 06:59
Intake Total 480 / 480 1200 / 1200 720 / 720
Balance 480 / 480 1200 / 1200 720 / 720
Physical Exam
Physical Exam
GEN: No acute distress, conversant but slowed speech
HEENT: +icteric, extraocular movements intact, clear oropharynx without exudates
GI: soft, non-distended, not tender to palpation, normal active bowel sounds, no hepatosplenomegaly
EXT: warm, well perfused, no edema bilaterally
NEURO: AAOx3, non-focal asterixis
[2025-02-01] MEDS: NOVOLOG FLEXPEN-LOW RESISTANCE SC (17:57)
[2025-02-01] MEDS: FLEXERIL 5 MG PO (20:45)
[2025-02-01] MEDS: DUPHALAC/CHRONULAC PO (21:42)
[2025-02-01 21:47] LABS: Glucose - Point of Care 254 mg/dl (70-99)
[2025-02-02] VITALS (21 sets, daily range): BP systolic 97–140; BP diastolic 60–94; BMI 19.8
[2025-02-02] MEDS: DUPHALAC/CHRONULAC 20 GRAMS PO ×6 (01:20→21:04)
[2025-02-02 04:44] LABS: Ammonia 79 umol/L (9-30)
[2025-02-02 04:50] LABS: Hematocrit 34.4 % (37.0-47.0); Hemoglobin 12.2 g/dL (12.0-16.0); Mean Corp Hgb Conc. 35.5 g/dL (33.0-37.0); Mean Corpuscular Hgb 31.5 pg (27.0-31.0); Mean Corpuscular Volume 88.9 fL (81.0-99.0); Mean Platelet Volume 10.1 fL (7.4-10.4); Platelet Count 132 10^3/uL (130-400); Red Blood Cell Count 3.87 10^6/uL (4.20-5.40); Red Cell Dist. Width 13.3 % (11.5-14.5); White Blood Cell Count 6.7 10^3/uL (4.8-10.8)
[2025-02-02 04:57] LABS: ALT (SGPT) 59 U/L (0-35); AST (SGOT) 53 U/L (14-36); Albumin 3.2 g/dl (3.5-5.0); Alkaline Phosphatase 104 U/L (38-126); Blood Urea Nitrogen 17 mg/dl (7-17); Calcium 9.4 mg/dl (8.4-10.2); Carbon Dioxide 23 mmol/L (22-30); Chloride 105 mmol/L (98-107); Estimated Creatinine Clearance 68 ml/min; Glucose 206 mg/dl (70-99); Potassium 4.5 mmol/L (3.5-5.1); Sodium 135 mmol/L (135-145); Total Bilirubin 1.4 mg/dl (0.2-1.3); Total Protein 5.8 g/dl (6.3-8.2); eGFR > 60.00
[2025-02-02] MEDS: SYNTHROID 50 MCG PO (05:27)
[2025-02-02 08:02] LABS: Glucose - Point of Care 176 mg/dl (70-99)
[2025-02-02] MEDS: NOVOLOG FLEXPEN-LOW RESISTANCE 1 UNITS SC (08:13)
[2025-02-02] MEDS: XIFAXAN 550 MG PO ×2 (08:14→20:21)
[2025-02-02] MEDS: ALDACTONE 100 MG PO (08:14)
[2025-02-02] MEDS: PROTONIX 40 MG PO (08:14)
[2025-02-02] MEDS: HEPARIN 5000 UNITS SC ×2 (08:15→20:21)
[2025-02-02] MEDS: LASIX 80 MG PO (08:15)
--- NOTE | 2025-02-02 08:15 | PTCARENOTE ---
Pt AAOx2, forgetful. repeats hersef. Pt on Ra lungs diminished Placed on bed payan pt voided. Took pills without incident.
[2025-02-02] MEDS: ZOLOFT 75 MG PO (08:16)
[2025-02-02] MEDS: COREG 3.125 MG PO ×2 (08:16→20:21)
[2025-02-02] MEDS: CYMBALTA DELAYED RELEASE 30 MG PO ×2 (08:25→20:21)
[2025-02-02] MEDS: ASPIR LOW (ENTERIC COATED) 81 MG PO (08:25)
--- NOTE | 2025-02-02 12:05 | W.PN.GI.CBS2 ---
Today's Communication / Plan
-
Ok from GI perspective for transfer to floors
OBB to chair and PT eval, pt expressed apprehension that she will not be able care for herself alone at home
Close FU with Dr Hickman outpatient basis
No new recs GI will sign off please aall for ?
Assessment / Plan
-
Pt is a 64yo with hx ETOH cirrhosis with prior ascites chowdhury's, LACEY, CHF, HTN, NIDDM, psoriasis, anxiety/depression, ADHD, hypothyroidism/partial thyroidectomy with onset of change in mental status with slow responses and word finding difficulty.
On admission noted with WBC 11,500, hbg 11,500, platelets 194, INR 1,28, Na 137, bili 0.9, AST 60, ALT 49, alk phos 86 and ammonia of 82 then rise to 125. Pt follows with Dr. Hickman prior to admission. Hx multiple EGD's in past last 09/2024
with no lesions in esophagus, irreg z line, large amount of food in stomach. WATS-3D. bx neg metaplasia, colon 2020 with non bleeding colonic angioectasias, s/p APC, polyp TC, bx HP no microscopic colitis. Recent MRI with severe portal HTN with
large left upper quad varices, spenorenal shunting, large portohepatic and portacaval nodes with concern for inflammatory/infectious, malignant lymphadenopathy, mets vs lymphoma, changes of cirrhosis, mild intrahepatic biliary dilation and upper abd
ascites, cholelithiasis. She was recommended follow up with Dr Hickman
per OP chart prior liver work with hepatitis, JENNIFER, AMA, ASMA. ceruloplasmin, A1At,, celiac, iron studies, neg, prior para not enough fluid to calculate SAAG
Impression
-confusion with concern for hepatic encephalopathy and elevated ammonia level on admission
-ETOH cirrhosis
-hx ascites
-abnormal MRI in 10/2024- with severe portal HTN and large portohepatic, portocaval nodes
-mild leukocytosis on admission
-mild anemia with hx iron deficiency
-hypoalbuminemia
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
-hx colonic angioectasia with prior APC
-NIDDM -on Rybelsus
-HTN
-CHF
-psoriasis
-anxiety/depression
-ADHD
-hypothyroidism/partial thyroidectomy
Recommendations
- C/w lactulose q4H and xifaximin with goal of 2 BMs daily
- Semaglutide may contribute to her constipation
- Abd US without ascites to tap
- C/w diuretics (lasix and aldactone)
- C/w coreg (EGD in 09/2024 neg for EV)
- Follow up MRI in March 2025 to follow up for lymphadenopathy seen in 10/2024
- C/w low salt diet
Ok for transfer to medical floors
At this juncture no new GI recs will sign off please call for ?
Subjective
Subjective
Date of Service: February 02, 2025
Mental status appears improving. She is tolerating diet. Copious BMs.
Objective
Data Reviewed
Laboratory Data:
Laboratory Results
02/02/25 04:20
02/02/25 04:20
Laboratory Results
PT 15.8 Sec (11.4-14.6) H 02/01/25 04:12
INR 1.21 02/01/25 04:12
APTT 31.9 Sec (23.4-35.0) 01/30/25 14:47
Magnesium 1.6 mg/dl (1.6-2.3) 01/31/25 05:35
Total Bilirubin 1.4 mg/dl (0.2-1.3) H 02/02/25 04:20
AST 53 U/L (14-36) H 02/02/25 04:20
ALT 59 U/L (0-35) H 02/02/25 04:20
Alkaline Phosphatase 104 U/L (38-126) 02/02/25 04:20
Vital Signs and I&O:
Vital Signs
Temp Pulse Resp BP Pulse Ox
98 F 73 19 124/60 99
02/02/25 07:05 02/02/25 11:00 02/02/25 11:00 02/02/25 11:00 02/02/25 11:00
I&O
02/01/25 02/02/25 02/03/25
06:59 06:59 06:59
Intake Total 1200 / 1200 2004
Output Total 300 / 300
Balance 1200 / 1200 2004 -300 / -300
Physical Exam
Physical Exam
GEN: No acute distress, conversant but slowed speech
HEENT: anicteric, extraocular movements intact, clear oropharynx without exudates
GI: soft, non-distended, not tender to palpation, normal active bowel sounds, no hepatosplenomegaly
EXT: warm, well perfused, trace edema bilaterally
NEURO: AAOx3, non-focal forgetful at times
[2025-02-02 12:52] LABS: Glucose - Point of Care 404 mg/dl (70-99)
--- NOTE | 2025-02-02 13:21 | PTCARENOTE ---
FRiend Amy Gutierrez [phone] willing to help with anything Karin may need as they are ling time friends
[2025-02-02 13:39] LABS: Glucose 318 mg/dl (70-99)
[2025-02-02] MEDS: NOVOLOG FLEXPEN-LOW RESISTANCE 4 UNITS SC (13:43)
--- NOTE | 2025-02-02 14:01 | W.PN.HOSP.TC ---
Today's Communication/Plan
-
Lactulose, titrate for 2-3 bowel movements
Rifaximin
Coreg
Resume diuretic
ASA
PT/OT
Assessment / Plan
Assessment / Plan
Physical Exam
General: Comfortable, Conversant and Other (Appears thin)
HEENT: NormoCephalic and Anicteric
Respiratory: Clear and Non Labored Respirations
Cardiac: S1/S2, Regular Rhythm and Tachycardia
GI: Soft and Non Tender
Rectal: Deferred by Provider
Musculoskeletal: No Clubbing, No Cyanosis and No Edema
Skin: Warm and Dry
Neuro: Awake, Alert, Orientedx3; and Nonfocal/grossly intact
Psych: Calm
Acute Hepatic Encephalopathy secondary to Alcoholic Liver Disease
Portal hypertension
Transaminitis
-Consult GI
-Continue Lactulose, titrate to 2-3 bowel movements
-Start Xifaxan
-Doppler ultrasound with no evidence of clotting, significant ascites. Suggestion of portal hypertension
� Already on spironolactone
� 2 g sodium diet
� Alcohol abstinence, last drink 2023 as per outpatient note
�Holding diuretic for now, anticipate starting tomorrow
Atrial Flutter with Rapid Ventricular Response, reverted to sinus
-Rate remains poorly controlled on max dose of diltiazem infusion
Resuming Coreg
� Defer to cardiology for restarting anticoagulation although high risk for falls�hold off at this time
� Aspirin okay
Elevated Troponin
-likely non-ischemic myocardial injury to uncontrolled heart rate
-Continue to trend troponin
-Check echocardiogram
�Cardiology consulted
Chronic HFpEF
-Echo Jul 2022: Normal left ventricular size, wall thickness and systolic function with EF 55-60%. Stage II Diastolic dysfunction
-Hold Lasix for now with possible diarrhea, resume tomorrow
-Continue spironolactone
-Monitor Daily Weights
Essential Hypertension
-Monitor blood pressure closely while on diltiazem infusion
Hyperlipidemia
-Continue atorvastatin
Diabetes Mellitus, Type II
-Hold metformin, glipizide and semaglutide
-Monitor sugars and continue coverage insulin
Hypothyroidism
-Continue levothyroxine
GERD / Monk's Esophagus
-Continue Protonix
Anxiety/Depression
-Continue sertraline and duloxetine
DVT proph: SC Heparin
Code Status: Full Code
Anticipated Discharge: 24 - 48 hours
Subjective/Interval History
-
Date of Service: February 02, 2025
Mental status improved although still with some tremors movement of hands
Objective Data
-
Labs:
Laboratory Results
02/02/25 02/02/25
04:20 13:08
WBC 6.7
Hgb 12.2
Hct 34.4 L
Plt Count 132
Sodium 135
Potassium 4.5
Chloride 105
Carbon Dioxide 23
BUN 17
Creatinine 0.8
Glucose 206 H 318 H
Calcium 9.4
Total Bilirubin 1.4 H
AST 53 H
ALT 59 H
Alkaline Phosphatase 104
Vital Signs:
Vital Signs
Temp Pulse Resp BP Pulse Ox
98.3 F 76 15 125/69 100
02/02/25 11:12 02/02/25 12:00 02/02/25 12:00 02/02/25 12:00 02/02/25 12:00
I&O
02/01/25 02/02/25 02/03/25
06:59 06:59 06:59
Intake Total 1200 / 1200 2004
Output Total 300 / 300
Balance 1200 / 1200 2004 -300 / -300
Review of Systems
-
History Source: Patient
All other systems: Not reviewed unless documented
Data Reviewed
-
Diagnostic Radiology: Report Reviewed by me
CT Scan: Report Reviewed by me
Labs: Labs Reviewed by me
[2025-02-02 15:29] LABS: Glucose - Point of Care 365 mg/dl (70-99)
[2025-02-02] MEDS: NOVOLOG FLEXPEN-MODERATE RESISTANCE 3 UNITS SC (17:06)
[2025-02-02 17:12] LABS: Glucose - Point of Care 229 mg/dl (70-99)
--- NOTE | 2025-02-02 17:39 | PTCARENOTE ---
report to 4t floor nurse will transport when she is finished her meal
[2025-02-02 21:44] LABS: Glucose - Point of Care 243 mg/dl (70-99)
[2025-02-02] MEDS: FLEXERIL 5 MG PO (22:59)
[2025-02-03 01:13] LABS: Glucose - Point of Care 264 mg/dl (70-99)
[2025-02-03] MEDS: DUPHALAC/CHRONULAC 20 GRAMS PO ×6 (02:10→21:14)
[2025-02-03 03:40] VITALS: BP 114/64
[2025-02-03] MEDS: SYNTHROID 50 MCG PO (05:54)
[2025-02-03 05:57] VITALS: BMI 19.2
[2025-02-03 07:27] LABS: Glucose - Point of Care 256 mg/dl (70-99)
[2025-02-03 07:42] VITALS: BP 119/60
[2025-02-03] MEDS: NOVOLOG FLEXPEN-MODERATE RESISTANCE 5 UNITS SC ×2 (08:01→12:23)
[2025-02-03] MEDS: CYMBALTA DELAYED RELEASE 30 MG PO ×2 (08:02→20:32)
[2025-02-03] MEDS: LASIX 80 MG PO (08:02)
[2025-02-03] MEDS: ASPIR LOW (ENTERIC COATED) 81 MG PO (08:02)
[2025-02-03] MEDS: XIFAXAN 550 MG PO ×2 (08:03→20:32)
[2025-02-03] MEDS: ZOLOFT 75 MG PO (08:03)
[2025-02-03] MEDS: PROTONIX 40 MG PO (08:03)
[2025-02-03 08:04] LABS: Ammonia 26 umol/L (9-30)
[2025-02-03] MEDS: COREG 3.125 MG PO ×2 (08:04→20:31)
[2025-02-03] MEDS: ALDACTONE 100 MG PO (08:04)
[2025-02-03] MEDS: HEPARIN 5000 UNITS SC ×2 (08:05→20:32)
[2025-02-03] MEDS: TYLENOL 650 MG PO ×2 (08:12→21:14)
[2025-02-03 08:13] LABS: ALT (SGPT) 64 U/L (0-35); AST (SGOT) 48 U/L (14-36); Albumin 3.3 g/dl (3.5-5.0); Alkaline Phosphatase 100 U/L (38-126); Blood Urea Nitrogen 17 mg/dl (7-17); Calcium 9.7 mg/dl (8.4-10.2); Carbon Dioxide 27 mmol/L (22-30); Chloride 101 mmol/L (98-107); Estimated Creatinine Clearance 59 ml/min; Glucose 224 mg/dl (70-99); Potassium 4.2 mmol/L (3.5-5.1); Sodium 136 mmol/L (135-145); Total Bilirubin 1.1 mg/dl (0.2-1.3); Total Protein 5.9 g/dl (6.3-8.2); eGFR > 60.00
[2025-02-03 08:25] LABS: Hematocrit 34.7 % (37.0-47.0); Hemoglobin 12.2 g/dL (12.0-16.0); Mean Corp Hgb Conc. 35.2 g/dL (33.0-37.0); Mean Corpuscular Hgb 31.5 pg (27.0-31.0); Mean Corpuscular Volume 89.7 fL (81.0-99.0); Mean Platelet Volume 10.2 fL (7.4-10.4); Platelet Count 129 10^3/uL (130-400); Red Blood Cell Count 3.87 10^6/uL (4.20-5.40); Red Cell Dist. Width 13.2 % (11.5-14.5); White Blood Cell Count 7.5 10^3/uL (4.8-10.8)
[2025-02-03 10:57] VITALS: BP 105/64
--- NOTE | 2025-02-03 11:35 | PTCARENOTE ---
Assumed care of pt from previous nurse. Pt with discomfort to back, left shoulder and neck. Provided tylenol, pt states takes flexeril at home but doesn't know dose or prn frequency. TT to Dr. Cano, no new orders at this time. will see pt to
assess mental status and increased mobility. Pt oob to bed with rolling walker, steady but weak. Pt call varma is within reach, pt rings rowena. will cont to monitor.
[2025-02-03 11:44] LABS: Glucose - Point of Care 285 mg/dl (70-99)
[2025-02-03 14:51] VITALS: BP 111/63
--- NOTE | 2025-02-03 15:04 | W.PN.HOSP.TC ---
Today's Communication/Plan
-
Lactulose, titrate for 2-3 bowel movements
Rifaximin
Coreg
ASA
PT/OT
Assessment / Plan
Assessment / Plan
Physical Exam
General: Comfortable, Conversant and Other (Appears thin)
HEENT: NormoCephalic and Anicteric
Respiratory: Clear and Non Labored Respirations
Cardiac: S1/S2, Regular Rhythm and Tachycardia
GI: Soft and Non Tender
Rectal: Deferred by Provider
Musculoskeletal: No Clubbing, No Cyanosis and No Edema
Skin: Warm and Dry
Neuro: Awake, Alert, Orientedx3; and Nonfocal/grossly intact
Psych: Calm
Acute Hepatic Encephalopathy secondary to Alcoholic Liver Disease
Portal hypertension
Transaminitis
-Consult GI
-Continue Lactulose, titrate to 2-3 bowel movements
-Start Xifaxan
-Doppler ultrasound with no evidence of clotting, significant ascites. Suggestion of portal hypertension
� Already on spironolactone
� 2 g sodium diet
� Alcohol abstinence, last drink 2023 as per outpatient note
�starting diuretic
Atrial Flutter with Rapid Ventricular Response, reverted to sinus
-Rate remains poorly controlled on max dose of diltiazem infusion
Resuming Coreg
� Defer to cardiology for restarting anticoagulation although high risk for falls�hold off at this time
� Aspirin okay
Elevated Troponin
-likely non-ischemic myocardial injury to uncontrolled heart rate
-Continue to trend troponin
-Check echocardiogram
�Cardiology consulted
Chronic HFpEF
-Echo Jul 2022: Normal left ventricular size, wall thickness and systolic function with EF 55-60%. Stage II Diastolic dysfunction
-resume diuretic
-Continue spironolactone
-Monitor Daily Weights
Essential Hypertension
-Monitor blood pressure closely while on diltiazem infusion
Hyperlipidemia
-Continue atorvastatin
Diabetes Mellitus, Type II
-Hold metformin, glipizide and semaglutide
-Monitor sugars and continue coverage insulin
Hypothyroidism
-Continue levothyroxine
GERD / Monk's Esophagus
-Continue Protonix
Anxiety/Depression
-Continue sertraline and duloxetine
DVT proph: SC Heparin
Code Status: Full Code
Anticipated Discharge: Within 24 hours
Subjective/Interval History
-
Date of Service: February 03, 2025
tremors still present albeit improved
Objective Data
-
Labs:
Laboratory Results
02/03/25
07:38
WBC 7.5
Hgb 12.2
Hct 34.7 L
Plt Count 129 L
Sodium 136
Potassium 4.2
Chloride 101
Carbon Dioxide 27
BUN 17
Creatinine 0.9
Glucose 224 H
Calcium 9.7
Total Bilirubin 1.1
AST 48 H
ALT 64 H
Alkaline Phosphatase 100
Vital Signs:
Vital Signs
Temp Pulse Resp BP Pulse Ox
98.7 F 76 18 111/63 100
02/03/25 14:51 02/03/25 14:51 02/03/25 14:51 02/03/25 14:51 02/03/25 14:51
I&O
02/02/25 02/03/25 02/04/25
06:59 06:59 06:59
Intake Total 2004 220 / 220
Output Total 300 / 300
Balance 2004 -80 / -80
Review of Systems
-
History Source: Patient
All other systems: Not reviewed unless documented
Data Reviewed
-
Diagnostic Radiology: Report Reviewed by me
CT Scan: Report Reviewed by me
Labs: Labs Reviewed by me
[2025-02-03 15:16] LABS: Glucose - Point of Care 199 mg/dl (70-99)
[2025-02-03] MEDS: NOVOLOG FLEXPEN-MODERATE RESISTANCE 1 UNITS SC (17:55)
[2025-02-03 19:30] VITALS: BP 116/54
[2025-02-03 21:19] LABS: Glucose - Point of Care 317 mg/dl (70-99)
[2025-02-03 22:51] VITALS: BP 112/63
[2025-02-04] VITALS (8 sets, daily range): BP systolic 99–134; BP diastolic 54–62; PULSE 66; BMI 19.8
[2025-02-04] MEDS: DUPHALAC/CHRONULAC 20 GRAMS PO ×5 (02:40→21:12)
[2025-02-04] MEDS: DUPHALAC/CHRONULAC PO (06:17)
[2025-02-04] MEDS: SYNTHROID 50 MCG PO (06:27)
[2025-02-04 07:40] LABS: Hemoglobin 12.1 g/dL (12.0-16.0); Mean Corp Hgb Conc. 36.7 g/dL (33.0-37.0); Mean Corpuscular Hgb 32.4 pg (27.0-31.0); Mean Corpuscular Volume 88.5 fL (81.0-99.0); Mean Platelet Volume 10.9 fL (7.4-10.4); Platelet Count 117 10^3/uL (130-400); Red Blood Cell Count 3.73 10^6/uL (4.20-5.40); Red Cell Dist. Width 13.1 % (11.5-14.5); White Blood Cell Count 6.7 10^3/uL (4.8-10.8)
[2025-02-04 07:54] LABS: Glucose - Point of Care 227 mg/dl (70-99)
[2025-02-04] MEDS: NOVOLOG FLEXPEN-MODERATE RESISTANCE 3 UNITS SC (08:36)
[2025-02-04] MEDS: ZOLOFT 75 MG PO (08:37)
[2025-02-04] MEDS: PROTONIX 40 MG PO (08:37)
[2025-02-04] MEDS: CYMBALTA DELAYED RELEASE 30 MG PO ×2 (08:38→21:11)
[2025-02-04] MEDS: XIFAXAN 550 MG PO ×2 (08:38→21:12)
[2025-02-04] MEDS: LASIX 80 MG PO (08:38)
[2025-02-04] MEDS: COREG 3.125 MG PO ×2 (08:38→21:11)
[2025-02-04] MEDS: HEPARIN 5000 UNITS SC ×2 (08:39→21:11)
[2025-02-04] MEDS: ASPIR LOW (ENTERIC COATED) 81 MG PO (08:39)
[2025-02-04] MEDS: ALDACTONE 100 MG PO (08:41)
[2025-02-04 08:49] LABS: ALT (SGPT) 57 U/L (0-35); AST (SGOT) 39 U/L (14-36); Albumin 3.3 g/dl (3.5-5.0); Alkaline Phosphatase 103 U/L (38-126); Blood Urea Nitrogen 27 mg/dl (7-17); Calcium 9.4 mg/dl (8.4-10.2); Carbon Dioxide 24 mmol/L (22-30); Chloride 99 mmol/L (98-107); Estimated Creatinine Clearance 54 ml/min; Glucose 250 mg/dl (70-99); Potassium 4.5 mmol/L (3.5-5.1); Sodium 133 mmol/L (135-145); Total Protein 5.8 g/dl (6.3-8.2); eGFR > 60.00
[2025-02-04] MEDS: TYLENOL 650 MG PO ×2 (09:10→21:59)
[2025-02-04 11:29] LABS: Glucose - Point of Care 361 mg/dl (70-99)
[2025-02-04] MEDS: NOVOLOG FLEXPEN-MODERATE RESISTANCE 9 UNITS SC (11:31)
--- NOTE | 2025-02-04 13:02 | CM ---
Addendum entered by Anastasiia Shah 02/04/25 15:57:
CM spoke with patients friend, Ramila, discussed [facility] and [facility] able to offer a bed. Ramila prefers [facility] as it is in [place]. Patient seen bedside, agreeable to referral to [facility], will require auth.
Plan; [facility], auth required
Original Note:
CM reviewed chart, patient seen in chair with neighbors visiting. Patient reports she feels more confused today, is agreeable to rehab, reports her friend Ramila is her primary contact and would like her involved in discharge planning. Patient will
require insurance auth once stable for discharge to SNF. [facility] able to offer a bed at this time. CM will continue to follow for all discharge planning needs.
Plan; SNF once medically stable, will require auth.
--- NOTE | 2025-02-04 14:29 | W.PN.HOSP.TC ---
Today's Communication/Plan
-
Adjust insulin
Discharge planning
Assessment / Plan
Assessment / Plan
Gen-AAOx3, NAD
HEENT-NC, AT, anicteric, clear oral mm
Neck-supple
CV-reg, no M, +S1/S2
Lungs-clear B/L
Abd-soft, NT, ND
Ext-no edema
Musculoskeletal-no cyanosis, clubbing
Skin-warm and dry
Neuro-grossly non-focal
Psych-calm, cooperative
Acute Hepatic Encephalopathy - secondary to Alcoholic Liver Disease. Encephalopathy improved.
-Continue Lactulose and rifaximin, titrate to 2-3 bowel movements
-Doppler ultrasound with no evidence of clotting, significant ascites. Suggestion of portal hypertension
� Continue spironolactone, furosemide
� 2 g sodium diet
� Alcohol abstinence, last drink 2023 as per outpatient note
Atrial Flutter with Rapid Ventricular Response, reverted to sinus
Rates are now controlled.
Continue Coreg
� Defer to cardiology for restarting anticoagulation although high risk for falls�hold off at this time
� Aspirin okay
Echo shows LVEF 55 to 60%, stage III diastolic dysfunction, mild AR.
Elevated Troponin
-likely non-ischemic myocardial injury to uncontrolled heart rate
-Continue to trend troponin
Acute thrombocytopenia -platelet count 117,000. Was 194,000 on admission. Doubt type II HIT but will monitor closely. She is on subcutaneous heparin. Liver disease can contribute to thrombocytopenia.
Chronic HFpEF -stable, continue furosemide, spironolactone.
Essential Hypertension -stable.
Hyperlipidemia -atorvastatin on hold for elevated LFTs.
DM2 with hyperglycemia -hemoglobin A1c 8.7%. Glucose 250 this morning. Add Lantus, NovoLog with meals. Hold home medications for now, metformin, glipizide and semaglutide.
Hypothyroidism
-Continue levothyroxine
GERD / Monk's Esophagus
-Continue Protonix
Anxiety/Depression
-Continue sertraline and duloxetine
Code Status: Full Code
Dispo -stable for SNF, discussed with case management.
Anticipated Discharge: Within 24 hours
Subjective/Interval History
-
Date of Service: February 04, 2025
Patient seen/examined, complaining of elevated blood sugars.
Objective Data
-
Labs:
Laboratory Results
02/04/25
06:48
WBC 6.7
Hgb 12.1
Hct 33.0 L
Plt Count 117 L
Sodium 133 L
Potassium 4.5
Chloride 99
Carbon Dioxide 24
BUN 27 H
Creatinine 1.0
Glucose 250 H
Calcium 9.4
Total Bilirubin 1.0
AST 39 H
ALT 57 H
Alkaline Phosphatase 103
Vital Signs:
Vital Signs
Temp Pulse Resp BP Pulse Ox
98.3 F 60 20 112/55 98
02/04/25 11:00 02/04/25 11:00 02/04/25 11:00 02/04/25 11:00 02/04/25 11:00
I&O
02/03/25 02/04/25 02/05/25
06:59 06:59 06:59
Intake Total 220 / 220 720 / 720
Output Total 300 / 300
Balance -80 / -80 720 / 720
Review of Systems
-
History Source: Patient
All other systems: Reviewed and negative
[2025-02-04 15:36] LABS: Glucose - Point of Care 335 mg/dl (70-99)
[2025-02-04] MEDS: NOVOLOG FLEXPEN 6 UNITS SC (15:41)
[2025-02-04] MEDS: NOVOLOG FLEXPEN-LOW RESISTANCE 4 UNITS SC (15:41)
[2025-02-04 20:58] LABS: Glucose - Point of Care 375 mg/dl (70-99)
[2025-02-04] MEDS: LANTUS 0.1 UNITS SC (21:13)
[2025-02-04] MEDS: REFRESH EYE DROPS (PF) 1 DROPS OPHTH (21:13)
[2025-02-05] MEDS: DUPHALAC/CHRONULAC 20 GRAMS PO ×4 (03:07→15:10)
[2025-02-05 03:46] VITALS: BP 115/58
[2025-02-05 06:00] VITALS: BMI 19.9
[2025-02-05] MEDS: SYNTHROID 50 MCG PO (06:05)
[2025-02-05 07:39] VITALS: BP 117/55
[2025-02-05 07:56] LABS: Glucose - Point of Care 255 mg/dl (70-99)
[2025-02-05 09:22] LABS: % Immature Granulocytes 0.4 % (0-0.5); % Lymphocytes 26.6 % (20.5-51.1); % Monocytes 10.7 % (1.7-9.3); % Neutrophils 55.3 % (42.2-75.2); Absolute Basophils 0.1 10^3/uL (0-0.2); Absolute Eosinophils 0.4 10^3/uL (0-0.7); Absolute Lymphocytes 1.9 10^3/uL (1.2-3.4); Absolute Monocytes 0.8 10^3/uL (0.1-0.6); Absolute Neutrophils 3.9 10^3/uL (1.4-6.5); Hematocrit 35.4 % (37.0-47.0); Hemoglobin 12.4 g/dL (12.0-16.0); Mean Corpuscular Hgb 31.3 pg (27.0-31.0); Mean Corpuscular Volume 89.4 fL (81.0-99.0); Nucleated Red Blood Cells % 0 %; Platelet Count 109 10^3/uL (130-400); Red Blood Cell Count 3.96 10^6/uL (4.20-5.40); Red Cell Dist. Width 13.3 % (11.5-14.5); White Blood Cell Count 7.1 10^3/uL (4.8-10.8)
[2025-02-05] MEDS: NOVOLOG FLEXPEN 6 UNITS SC (09:52)
[2025-02-05] MEDS: NOVOLOG FLEXPEN-LOW RESISTANCE 3 UNITS SC (09:53)
[2025-02-05] MEDS: HEPARIN 5000 UNITS SC (09:54)
[2025-02-05] MEDS: ASPIR LOW (ENTERIC COATED) 81 MG PO (09:55)
[2025-02-05] MEDS: COREG 3.125 MG PO (09:55)
[2025-02-05] MEDS: PROTONIX 40 MG PO (09:55)
[2025-02-05] MEDS: ALDACTONE 100 MG PO (10:00)
[2025-02-05] MEDS: LASIX 80 MG PO (10:00)
[2025-02-05] MEDS: CYMBALTA DELAYED RELEASE 30 MG PO (10:06)
[2025-02-05] MEDS: XIFAXAN 550 MG PO (10:06)
[2025-02-05] MEDS: ZOLOFT 75 MG PO (10:07)
[2025-02-05] MEDS: TYLENOL 650 MG PO (10:19)
--- NOTE | 2025-02-05 11:02 | CM ---
Addendum entered by Anastasiia Shah 02/05/25 11:31:
Patient scheduled for 4:00 p.m. [facility] transport.
Original Note:
CM reviewed chart, patient for discharge today. Auth approved to [facility], 02/05-02/11, auth #[id number], call for updates [phone]. Provided to Lilli at [facility]. Call to patients friend/primary contact Ramila, updated on plan for
discharge to SNF. Ramila reports she is working all day, unable to provide transport, reports patients credit card has been flagged for fraud. Patient will require [facility] transport- hospital to assist with cost. Patient seen bedside, aware of plan
for discharge and [facility] transport. CM will continue to follow for all discharge planning needs.
Plan; D/c to [facility] SNF, WC Van transport
[facility]
Report: [phone]
[2025-02-05 11:29] VITALS: BP 123/57
[2025-02-05 12:04] LABS: Glucose - Point of Care 355 mg/dl (70-99)
[2025-02-05] MEDS: NOVOLOG FLEXPEN 10 UNITS SC (12:16)
[2025-02-05] MEDS: NOVOLOG FLEXPEN-LOW RESISTANCE 4 UNITS SC (12:16)
--- NOTE | 2025-02-05 12:57 | W.PN.HOSP.TC ---
Today's Communication/Plan
-
Discharge
Assessment / Plan
Assessment / Plan
Gen-AAOx3, NAD
HEENT-NC, AT, anicteric, clear oral mm
Neck-supple
CV-reg, no M, +S1/S2
Lungs-clear B/L
Abd-soft, NT, ND
Ext-no edema
Musculoskeletal-no cyanosis, clubbing
Skin-warm and dry
Neuro-grossly non-focal
Psych-calm, cooperative
Acute Hepatic Encephalopathy - secondary to Alcoholic Liver Disease. Encephalopathy improved.
-Continue Lactulose and rifaximin, titrate to 2-3 bowel movements
-Doppler ultrasound with no evidence of clotting, significant ascites. Suggestion of portal hypertension
� Continue spironolactone, furosemide
� 2 g sodium diet
� Alcohol abstinence, last drink 2023 as per outpatient note
Atrial Flutter with Rapid Ventricular Response, reverted to sinus
Rates are now controlled.
Continue Coreg
� Defer to cardiology for restarting anticoagulation although high risk for falls�hold off at this time
� Aspirin okay
Echo shows LVEF 55 to 60%, stage III diastolic dysfunction, mild AR.
Elevated Troponin
-likely non-ischemic myocardial injury to uncontrolled heart rate
-Continue to trend troponin
Acute thrombocytopenia -platelet count stable. Was 194,000 on admission. Doubt type II HIT but will monitor closely. She is on subcutaneous heparin. Liver disease can contribute to thrombocytopenia.
Chronic HFpEF -stable, continue furosemide, spironolactone.
Essential Hypertension -stable.
Hyperlipidemia -atorvastatin on hold for elevated LFTs.
DM2 with hyperglycemia -hemoglobin A1c 8.7%. Glucose 255 this morning. Home meds on hold, metformin, glipizide and semaglutide. Adjust doses of Lantus and NovoLog.
Hypothyroidism
-Continue levothyroxine
GERD / Monk's Esophagus
-Continue Protonix
Anxiety/Depression
-Continue sertraline and duloxetine
Code Status: Full Code
Dispo -stable for SNF, discussed with case management. Follow-up as an outpatient.
32 minutes spent in discharge process.
Anticipated Discharge: Today
Subjective/Interval History
-
Date of Service: February 05, 2025
Patient seen and examined. No complaints.
Objective Data
-
Labs:
Laboratory Results
02/05/25
07:01
WBC 7.1
Hgb 12.4
Hct 35.4 L
Plt Count 109 L
Vital Signs:
Vital Signs
Temp Pulse Resp BP Pulse Ox
97.4 F 62 18 123/57 99
02/05/25 11:29 02/05/25 11:29 02/05/25 11:29 02/05/25 11:29 02/05/25 11:29
I&O
02/04/25 02/05/25 02/06/25
06:59 06:59 06:59
Intake Total 720 / 720 1440 / 1440
Balance 720 / 720 1440 / 1440
Review of Systems
-
History Source: Patient
All other systems: Reviewed and negative
--- NOTE | 2025-02-05 13:03 | W.DS.TRANS ---
DC Summary - [employer]
-
Discharge Instructions:
Discharge Diagnosis/Procedures Hepatic encephalopathy, rapid atrial flutter,
acute thrombocytopenia
Diet 2 Gram Sodium
Activity As tolerated
Driving Restrictions As prior to admission
Bathing Restrictions None
Blood Work CBC next week
Instructions:
Stand-Alone Forms:
Changes to Home Medications: No
Discharge Medications:
DC Medications w/original date entered in [employer]
levothyroxine 50 mcg tablet 50 mcg PO DAILY Thyroid 02/04/21
metformin 1,000 mg tablet 1,000 mg PO BID Diabetes 02/04/21
omeprazole 40 mg capsule,delayed release 40 mg PO DAILY Gastrointestinal Issue 02/04/21
duloxetine 30 mg capsule,delayed release 30 mg PO BID Mental Health/Anxiety 11/19/24
furosemide 40 mg tablet 80 mg PO DAILY Fluid Retention/Swelling 11/19/24
semaglutide 14 mg tablet (Rybelsus) 14 mg PO DAILY Diabetes 11/19/24
spironolactone 100 mg tablet 100 mg PO DAILY Heart Disease/Condition 11/19/24
atomoxetine 40 mg capsule (Strattera) 40 mg PO DAILY Mental Health/Anxiety 01/30/25
carvedilol 3.125 mg tablet (Coreg) 3.125 mg PO BID Heart Disease/Condition 01/30/25
mineral oil (Fleet Mineral Oil enema) 118 ml PA DAILYPRN PRN Constipation 01/30/25
polyethylene glycol 3350 17 gram/dose oral powder (Miralax) 8.5 g PO DAILYPRN PRN Constipation 01/30/25
sertraline 25 mg tablet 75 mg PO DAILY Mental Health/Anxiety 01/30/25
loratadine 10 mg tablet (Claritin) 10 mg PO HS Allergies 02/04/25
Insulin Glargine Lantus [Lantus] 15 units As Directed mls/hr SC HS 02/05/25
aspirin 81 mg tablet,delayed release 81 mg PO DAILY #0 tabs 02/05/25
insulin aspart U-100 100 unit/mL (3 mL) subcutaneous pen 10 unit (0.1 mL) SC AC #0 mL 02/05/25
lactulose 10 gram/15 mL oral solution 20 g (30 mL) PO Q4H #0 mL 02/05/25
polyvinyl alcohol-povidone (PF) 1.4 %-0.6 % eye drops in a dropperette (Refresh Classic (PF)) 1 drops ophthalmic (eye) QIDPRN PRN dryness/itchy eyes #0 ea 02/05/25
rifaximin 550 mg tablet (Xifaxan) 550 mg PO BID #0 tabs 02/05/25
Home Medication Changes
Pending Results: No
[2025-02-05] MEDS: ZOFRAN 4 MG IV (13:24)
[2025-02-05 14:53] VITALS: BP 109/61
[2025-02-05] MEDS: REFRESH EYE DROPS (PF) 1 DROPS OPHTH (15:10)
[2025-02-05] MEDS: OCEAN, SALINE MIST 1 SPRAYS NASAL (15:31)
== END 2025-02-05 16:03 | DRG 433 ==
LOC: 4 WEST ACU 18:48
PROVIDERS: Nurse Practitioner Family; Physician Assistant Medical; ADMITTING PHYSICIAN Internal Medicine; ATTENDING PHYSICIAN Hospitalist; CONSULT PHYSICIAN Internal Medicine; EMERGENCY PHYSICIAN Emergency Medicine; OTHER PHYSICIAN Internal Medicine Cardiovascular Disease
DX: K70.30 Alcoholic cirrhosis of liver without ascites (principal); I47.19 Other supraventricular tachycardia; I48.92 Unspecified atrial flutter; I5A Non-ischemic myocardial injury (non-traumatic); I50.32 Chronic diastolic (congestive) heart failure; K76.6 Portal hypertension; I87.1 Compression of vein; K76.82 Hepatic encephalopathy; D69.6 Thrombocytopenia, unspecified; I11.0 Hypertensive heart disease with heart failure; E11.9 Type 2 diabetes mellitus without complications; E78.5 Hyperlipidemia, unspecified; E03.9 Hypothyroidism, unspecified; D50.9 Iron deficiency anemia, unspecified; K21.9 Gastro-esophageal reflux disease without esophagitis; K22.70 Barrett's esophagus without dysplasia; F32.A Depression, unspecified; F41.9 Anxiety disorder, unspecified; F90.9 Attention-deficit hyperactivity disorder, unspecified type; Z87.891 Personal history of nicotine dependence; Z82.49 Family history of ischemic heart disease and other diseases of the circulatory system; Z91.048 Other nonmedicinal substance allergy status; Z88.1 Allergy status to other antibiotic agents; Z88.2 Allergy status to sulfonamides; Z88.3 Allergy status to other anti-infective agents; Z79.890 Hormone replacement therapy; L40.8 Other psoriasis; Z80.1 Family history of malignant neoplasm of trachea, bronchus and lung; Z79.899 Other long term (current) drug therapy; I86.4 Gastric varices; Z86.0100 Personal history of colon polyps, unspecified; I08.0 Rheumatic disorders of both mitral and aortic valves; Z79.84 Long term (current) use of oral hypoglycemic drugs; D72.829 Elevated white blood cell count, unspecified; Z80.0 Family history of malignant neoplasm of digestive organs; Z83.3 Family history of diabetes mellitus
CPT/HCPCS: 70450; 71045; 76700; 80053; 80306; 81003; 81015; 82077; 82105; 82140; 82947; 82962; 83036; 83735; 83880; 84439; 84443; 84484; 85025; 85027; 85610; 85730; 93005; 93306; 93975; 96365; 96366; 96375; 97116; 97163; 97167; 97530; 97535; 99285

== ENCOUNTER 2025-02-06 22:53 | Inpatient (IN) | payer OTHER, SELFPAY ==
[2025-02-06] VITALS (7 sets, daily range): BP systolic 104–133; BP diastolic 53–75; BMI 19.5
[2025-02-06 18:31] LABS: % Basophils 0.7 % (0-2); % Eosinophils 0.9 % (0-6); % Immature Granulocytes 0.2 % (0-0.5); % Lymphocytes 5.6 % (20.5-51.1); % Monocytes 3.4 % (1.7-9.3); % Neutrophils 89.2 % (42.2-75.2); Absolute Basophils 0.1 10^3/uL (0-0.2); Absolute Eosinophils 0.1 10^3/uL (0-0.7); Absolute Lymphocytes 0.6 10^3/uL (1.2-3.4); Absolute Monocytes 0.4 10^3/uL (0.1-0.6); Absolute Neutrophils 9.6 10^3/uL (1.4-6.5); Hematocrit 40.3 % (37.0-47.0); Hemoglobin 14.2 g/dL (12.0-16.0); Mean Corp Hgb Conc. 35.2 g/dL (33.0-37.0); Mean Corpuscular Hgb 31.5 pg (27.0-31.0); Mean Corpuscular Volume 89.4 fL (81.0-99.0); Mean Platelet Volume 10.8 fL (7.4-10.4); Nucleated Red Blood Cells % 0 %; Platelet Count 121 10^3/uL (130-400); Red Blood Cell Count 4.51 10^6/uL (4.20-5.40); Red Cell Dist. Width 13.5 % (11.5-14.5); White Blood Cell Count 10.8 10^3/uL (4.8-10.8)
[2025-02-06 18:37] LABS: Ammonia 95 umol/L (9-30)
[2025-02-06 18:40] LABS: ALT (SGPT) 52 U/L (0-35); AST (SGOT) 40 U/L (14-36); Albumin 3.9 g/dl (3.5-5.0); Alkaline Phosphatase 120 U/L (38-126); Blood Urea Nitrogen 41 mg/dl (7-17); Carbon Dioxide 26 mmol/L (22-30); Chloride 99 mmol/L (98-107); Estimated Creatinine Clearance 41 ml/min; Glucose 198 mg/dl (70-99); Potassium 4.4 mmol/L (3.5-5.1); Sodium 135 mmol/L (135-145); Total Bilirubin 1.4 mg/dl (0.2-1.3); Total Protein 6.6 g/dl (6.3-8.2); eGFR 46.49
--- NOTE | 2025-02-06 18:59 | ED.GENMED ---
History of Present Illness
General
Chief Complaint: Back Pain
Source: records and other (friend)
Exam Limitations: altered mental status
Time Seen by Provider: 02/06/25 18:41
History of Present Illness
History of Present Illness:
64yoF with a history of cirrhosis, insulin-dependent diabetes, and hypothyroidism presenting via EMS for evaluation of altered mental status. History is provided by friend at bedside as well as hospitalization records. Patient was discharged
yesterday after a hospitalization for hepatic encephalopathy. Patient was ambulating with a walker prior to discharge and mental status was baseline. She was discharged to [facility]. Patient had 1 episode of vomiting prior to discharge.
Her friend reports that she was vomiting persistently throughout the night into today. She went to visit her this evening and patient was confused and minimally responsive. Friend states that lactulose was given around 5 PM this evening but she is
unsure if patient got any other doses today.
Past History
Past History
ED Past Medical History: NIDDM and Hypothyroidism
ED Past Surgical History: Orthopedic
Phy Exam
Physical Exam
Physical Exam:
Patient ill appearing. Somnolent but arousable to voice. Able to answer basic questions. Maintaining airway.
General Physical Exam
General Presentation: no apparent distress
General Skin: warm and dry
General Mental: alert
General Hydration: dry mucous membranes
ENT Exam
ENT Exam: normocephalic
Cardiovascular Exam
Cardiovascular Exam: regular rate/rhythm
Pulmonary Exam
Pulmonary Exam: lungs clear, no respiratory distress, no rales, no crackles and no rhonchi
Gastrointestinal Exam
Gastrointestinal Exam: non tender, soft and non distended
Skin Exam
Skin Exam: warm/dry
Course
Orders/Labs/Results
Orders:
Orders
02/06/25 18:12
Ammonia Urgent
CMP [Comprehensive Metabolic Panel] Urgent
Complete Blood Count/With Diff Urgent
02/06/25 18:54
0.9% Sodium Chloride 500 ml [Nss] 500 ml IV BOLUS
02/06/25 18:55
CT Head W/o Iv Contrast Urgent
Comment:
Reason For Exam: AMS
CR Chest Portable - 1 View Urgent
Comment:
Reason For Exam: AMS
Reason Study Needs to be Portable: Unable to Transport
02/06/25 19:23
Lactulose Enema 300 ml RECTAL NOW STA
02/06/25 19:35
Urinalysis Reflex To Culture Urgent
Date Specimen was Collected: 02/06/25
Time Specimen was Collected: 19:21
Urine Microscopic Reflex Cult Urgent
02/06/25 22:32
Admit/Transfer Patient As Directed
Co-Sign Provider:
Level of Care: Inpatient admission
Assign to:: Telemetry
Physician / Group: hospitalist
Diagnosis: encephalopathy
Reason for Telemetry: Other
Other Reason for Telemetry: monitor for tachycardia, gi bleed
Date to Stop Telemetry: 02/08/25
Time to Stop Telemetry: 11:00
Reason for Hospitalization: hepatic encephalopathy
Expected length of stay greater than two midnights?: Yes
ELOS- Estimated Length of Stay in days: 2
I certify the patient meets the requirements for IP care: Yes
02/06/25 22:33
PRN Pain Medication Management As Directed
May give lesser potent ordered pain med per pt: Yes
preference::
Protocol:: Medication orders for pain may be administered in a
manner that supports deferring to patient preference
when the pt is:
- Requesting an ordered lesser potent pain medication.
Least to most potent pain medications are defined
as: acetaminophen < NSAID < tramadol < opioids
(morphine, oxycodone, hydromorphone).
- Requesting a lesser dose of the same medication IF
ORDERED.
- Requesting a less intrusive route of administration
if both routes are prescribed by the provider (PO <
IV).
02/06/25 22:34
Code Status As Directed
Resuscitation Status: Full Code
02/08/25 11:00
DC Protocol for Telemetry ONCE
Abnormal Lab Results
02/06/25 02/06/25
18:12 19:35
MCH 31.5 H pg
(27.0-31.0)
Plt Count 121 L 10^3/uL
(130-400)
MPV 10.8 H fL
(7.4-10.4)
Absolute Neuts (auto) 9.6 H 10^3/uL
(1.4-6.5)
Absolute Lymphs (auto) 0.6 L 10^3/uL
(1.2-3.4)
Neutrophils % 89.2 H %
(42.2-75.2)
Lymphocytes % 5.6 L %
(20.5-51.1)
BUN 41 H mg/dl
(7-17)
Creatinine 1.3 H mg/dL
(0.6-1.0)
Glucose 198 H mg/dl
(70-99)
Total Bilirubin 1.4 H mg/dl
(0.2-1.3)
AST 40 H U/L
(14-36)
ALT 52 H U/L
(0-35)
Ammonia 95 H umol/L
(9-30)
Urine Bacteria (Reflex) Few A
(Negative)
Urine Albumin (Reflex) 1+ A
(Neg - Trace)
02/06/25 18:12
02/06/25 18:12
Vital Signs
Initial and Last Documented VS:
Initial Vital Signs
Temp Pulse Resp BP Pulse Ox
98.3 F 73 16 118/53 97
02/06/25 17:51 02/06/25 17:51 02/06/25 17:51 02/06/25 17:51 02/06/25 17:51
Last Documented Vital Signs
Temp Pulse Resp BP Pulse Ox
99 F 66 18 124/59 96
02/06/25 22:00 02/06/25 22:00 02/06/25 22:00 02/06/25 22:00 02/06/25 22:14
MDM/Problems Addressed
Differential Diagnosis Includes:
64yoF here with AMS. Discharged yesterday after an admission for hepatic encephalopathy. Went to short term rehab yesterday. Vomiting throughout the past 24 hours. Friend visited her this afternoon and patient noted to be very confused. VSS. She is
somnolent on exam but arousable to voice and does answer some basic questions. Differential diagnosis includes but is not limited to: hepatic encephalopathy, UTI, dehydration, intracranial hemorrhage
Initial ED plan: Labs obtained in triage. Ammonia 95. Creatinine 1.3, up from 1.0 two days ago. Will check UA, CXR, and CT head. IV fluid bolus and lactulose enema ordered. She will require hospitalization.
*Critical Care Note
Total Time (30-74mins, 75-104mins- exclusive of procedures): Not Applicable
ED Attending Note
-
Portions of this chart may have been created with voice recognition software.� Occasional wrong word or��sound alike� substitutions may have occurred due to the inherent limitations of voice recognition software.
Discharge Plan
Departure
Patient Disposition: Admit
Date of Disposition: 02/06/25
Time of Disposition: 22:09
Presentation/result/management discussed w/ accepting MD/DO: Hospitalist
Discharge Problem:
Acute hepatic encephalopathy
Prescriptions:
No Action
levothyroxine 50 MCG tablet
50 mcg PO DAILY
metformin 1,000 MG tablet
1,000 mg PO BID
furosemide 40 mg Tablet
80 mg PO DAILY
duloxetine 30 mg Capsule,Delayed Release(Dr/Ec)
30 mg PO BID
Rybelsus 14 mg Tablet
14 mg PO DAILY
spironolactone 100 mg Tablet
100 mg PO DAILY
carvedilol [Coreg] 3.125 mg Tablet
3.125 mg PO BID
sertraline 25 mg Tablet
75 mg PO DAILY
atomoxetine [Strattera] 40 mg Capsule
40 mg PO DAILY
polyethylene glycol 3350 [Miralax] 17 gram/dose powder
17 g PO DAILY
loratadine [Claritin] 10 mg Tablet
10 mg PO DAILY
aspirin 81 mg Tablet,Delayed Release (Dr/Ec)
81 mg PO DAILY Qty: 0 0RF
insulin aspart U-100 100 unit/mL (3 mL) Insulin Pen
10 unit SC AC Qty: 0 0RF
lactulose 10 gram/15 mL Solution
20 g PO Q4H Qty: 0 0RF
Xifaxan 550 mg Tablet
550 mg PO BID Qty: 0 0RF
acetaminophen [Tylenol] 325 mg Tablet
650 mg PO Q4HPRN PRN (Reason: mild pain)
insulin glargine [Lantus U-100 Insulin] 100 unit/mL Solution
15 unit SC HS
magnesium hydroxide [Milk of Magnesia] 400 mg/5 mL Suspension
30 ml PO [id number] PRN (Reason: no bm x3 days)
bisacodyl [Dulcolax (bisacodyl)] 10 mg Suppository
10 mg ID DAILYPRN PRN (Reason: if mom ineffective after 24 hrs)
Fleet Enema 19-7 gram/118 mL Enema
118 ml ID DAILYPRN PRN (Reason: dulcolax ineffective after 24 hours)
omeprazole magnesium [Prilosec OTC] 20 mg Tablet,Delayed Release (Dr/Ec)
40 mg PO DAILY
Patient Comments:
02/06/25: to take from 02/06/25-02/20/25
Refresh Classic (PF) 1.4-0.6 % dropperette
1 drops BOTH EYES Q8HPRN PRN (Reason: dryness/itchy eyes)
Patient Comments:
02/06/25: to take from 02/05/25-02/19/25
Referrals:
Matt López I., DO [Family Provider] -
Interventions
Interventions:
*Risk Screen - Suicide Last Done: 02/06/25 17:51
*General Assessment Last Done: 02/06/25 17:51
*Neglect/Abuse Screening Last Done: 02/06/25 17:51
*ED- Fall Risk Assessment Last Done: 02/06/25 17:51
ED-Musculoskeletal Assessment Last Done: 02/06/25 18:37
Discharge Date and Time
Print Language: STATELESS
[2025-02-06] MEDS: NSS 500 IV (19:00)
[2025-02-06 19:45] LABS: Urine Albumin 1+ (Neg - Trace); Urine Bilirubin Negative (Negative); Urine Character Clear (Clear); Urine Color Yellow; Urine Glucose Negative (Negative); Urine Ketone Negative (Negative); Urine Leukocyte Negative (Negative); Urine Nitrite Negative (Negative); Urine Occult Blood Negative (Negative); Urine Urobilinogen Negative (Neg - 1+)
[2025-02-06 20:15] LABS: Urine Squamous Cell 0-2 /LPF (Few)
[2025-02-06 20:16] LABS: Urine Bacteria Few (Negative); Urine Red Blood Cell 0-2 /HPF (0-2); Urine White Cell 0-2 /HPF (0-5)
[2025-02-06] MEDS: LACTULOSE ENEMA 300 ML RECTAL (20:17)
--- NOTE | 2025-02-06 22:21 | HPS.HSE ---
Family Physician
-
Family Physician: Matt López
Chief Complaint
-
Altered mental status
History of Present Illness
This is a 64-year-old female with past medical history significant for hypothyroid, cirrhosis complicated by hepatic encephalopathy, insulin-dependent diabetes who presents to the emergency department with altered mental status.
Patient was admitted recently for altered mental status and found to have hepatic encephalopathy with ammonia level of around 100. He was placed on lactulose and rifaximin and did improve. Mental status improved and ammonia level 1 2 as well as 26
just prior to discharge. Patient was discharged to rehab yesterday. This morning relative came to visit her and found the patient somnolent but arousable. She was not normally responsive. Due to this change in mental status compared to the
previous day she was brought back to the emergency department.
Patient quite somnolent currently unable to provide any additional history. She did not appear to have any abdominal pain. She is reported to be vomiting in the rehab. She has not had any fevers or chills. Does not been any cough or shortness of
breath.
Here in the emergency department she received a lactulose enema and a bolus of IV fluids.
Temp 98.3, blood pressure 104/75 pulse [address]
CT of the head was negative. UA was unremarkable stop chest x-ray shows low lung volumes but otherwise unremarkable. CBC was unchanged and all within normal range. Electrolyte were normal and unchanged from prior. BUN/creatinine were slightly
increased to a creatinine of 1.3 from a baseline of 1.0.. LFTs were not significantly changed from prior. Ammonia level is elevated to 95. T. bili 1.4.
Medical History
Past Medical History
Past Medical History: Reports Other
Additional Past Medical History:
Chronic HFpEF
Essential Hypertension
Hyperlipidemia
Diabetes Mellitus, Type II
Hypothyroidism
Iron Deficiency Anemia
Alcoholic Cirrhosis
GERD / Monk's Esophagus
Psoriasis
Anxiety/Depression
ADHD
Past Surgical History: Reports Other
Additional Past Surgical History:
Partial Thyroidectomy
Bilateral Breast Lumpectomy (benign)
Right Shoulder Arthroscopy
Tonsillectomy
Social History
Tobacco: Non-smoker
Alcohol: Former (Patient reports drinking a 1.5L bottle of wine nightly, but has been sober since Aug 2024)
Family History
Family History: Not pertinent and Other (Father: CAD, DM Mother: Lung Cancer)
Allergies / Home Medications
Allergies reflects when Allergies were last updated in [employer].
Home Medications with original date entered in [employer]
Allergy/Medication List:
Allergies
Allergy/AdvReac Type Severity Reaction Status Date / Time
adhesive tape Allergy Swelling Verified 02/06/25 17:50
clarithromycin Allergy Rash/vomiti Verified 02/06/25 17:50
ng
erythromycin base Allergy Tongue Verified 02/06/25 17:50
Swelling
nitrofurantoin Allergy Vomiting Verified 02/06/25 17:50
[From Macrobid]
ofloxacin Allergy Rash/vomiti Verified 02/06/25 17:50
ng
Quinolones Allergy Rash Verified 02/06/25 17:50
Sulfa (Sulfonamide Allergy Rash Verified 02/06/25 17:50
Antibiotics)
sulfamethoxazole Allergy Rash Verified 02/06/25 17:50
trimethoprim Allergy Rash Verified 02/06/25 17:50
Home Medications
levothyroxine 50 mcg tablet 50 mcg PO DAILY Thyroid 02/04/21
metformin 1,000 mg tablet 1,000 mg PO BID Diabetes 02/04/21
duloxetine 30 mg capsule,delayed release 30 mg PO BID Mental Health/Anxiety 11/19/24
furosemide 40 mg tablet 80 mg PO DAILY Fluid Retention/Swelling 11/19/24
semaglutide 14 mg tablet (Rybelsus) 14 mg PO DAILY Diabetes 11/19/24
spironolactone 100 mg tablet 100 mg PO DAILY Heart Disease/Condition 11/19/24
atomoxetine 40 mg capsule (Strattera) 40 mg PO DAILY Mental Health/Anxiety 01/30/25
carvedilol 3.125 mg tablet (Coreg) 3.125 mg PO BID Heart Disease/Condition 01/30/25
polyethylene glycol 3350 17 gram/dose oral powder (Miralax) 17 g PO DAILY 01/30/25
sertraline 25 mg tablet 75 mg PO DAILY Mental Health/Anxiety 01/30/25
loratadine 10 mg tablet (Claritin) 10 mg PO DAILY Allergies 02/04/25
aspirin 81 mg tablet,delayed release 81 mg PO DAILY #0 tabs 02/05/25
insulin aspart U-100 100 unit/mL (3 mL) subcutaneous pen 10 unit (0.1 mL) SC AC #0 mL 02/05/25
lactulose 10 gram/15 mL oral solution 20 g (30 mL) PO Q4H #0 mL 02/05/25
rifaximin 550 mg tablet (Xifaxan) 550 mg PO BID #0 tabs 02/05/25
acetaminophen 325 mg tablet (Tylenol) 650 mg PO Q4HPRN PRN mild pain 02/06/25
bisacodyl 10 mg rectal suppository (Dulcolax (bisacodyl)) 10 mg [place] DAILYPRN PRN if mom ineffective after 24 hrs 02/06/25
insulin glargine 100 unit/mL subcutaneous solution (Lantus U-100 Insulin) 15 unit SC HS 02/06/25
magnesium hydroxide 400 mg/5 mL oral suspension (Milk of Magnesia) 30 ml PO [id number] PRN no bm x3 days 02/06/25
omeprazole magnesium 20 mg tablet,delayed release (Prilosec OTC) 40 mg PO DAILY 02/06/25
polyvinyl alcohol-povidone (PF) 1.4 %-0.6 % eye drops in a dropperette (Refresh Classic (PF)) 1 drops BOTH EYES Q8HPRN PRN dryness/itchy eyes 02/06/25
sodium phosphates 19 gram-7 gram/118 mL enema (Fleet Enema) 118 ml [place] DAILYPRN PRN dulcolax ineffective after 24 hours 02/06/25
Review of Systems
-
Unable to obtain full review of systems at this time due to: Patient Non-verbal
Physical Exam
Vital Signs
Vital Signs
Temp Pulse Resp BP Pulse Ox
99 F 66 18 124/59 96
02/06/25 22:00 02/06/25 22:00 02/06/25 22:00 02/06/25 22:00 02/06/25 22:14
Physical Exam
General: No Apparent Distress and Appears Chronically Ill
HEENT: NormoCephalic, Anicteric, Moist mucous membranes, Atraumatic and Neck Nontender; No Oxygen
Respiratory: Clear
Cardiac: S1/S2 and Regular Rhythm
Breast: Deferred by me
GI: Soft, Non Tender, Non Distended and Normal Bowel Sounds
Rectal: Deferred by Provider
Genito-urinary: Clear Urine
Musculoskeletal: No Clubbing, No Cyanosis, Edema, Left Lower Extremity (trace) and Edema, Right Lower Extremity (trace)
Skin: Warm
Neuro: AO x 3
Hematologic/Lymphatic: No Lymphadenopathy
Psych: Calm
Laboratory Results
-
02/06/25 18:12
02/06/25 18:12
Laboratory Results
Total Bilirubin 1.4 mg/dl (0.2-1.3) H 02/06/25 18:12
AST 40 U/L (14-36) H 02/06/25 18:12
ALT 52 U/L (0-35) H 02/06/25 18:12
Alkaline Phosphatase 120 U/L (38-126) 02/06/25 18:12
Data Reviewed
-
Diagnostic Radiology: Image Personally Visualized and interpreted and Report Reviewed by me
CT Scan: Report Reviewed by me
Lab Data: Labs Reviewed by me
Old Records: Reviewed
Impression/Plan
-
IMPRESSION:
64 y.o female with cirrhosis of the liver and hepatic encephalopathy, just discharged for hepatic encephalopathy 1 day ago and now coming in with AMS, somnolence, and elevated ammonia to 95 c/w hepatic encephalopathy. No evidence of GI bleed, no
ascites, no fevers or chills. Vomiting at NH but not here. S/P Enema in ED and bolus of 500 ml NS
PLAN:
Hepatic Encephalopathy - Extremely somnolent but arousable and appears to be protecting airways. CT head negative. Normal oxygenation
- admit to IMU to monitor airways
- VBG
- NPO for now
- continue lactulose IL q 6 - 8 hours
- no rifaximin or other po meds for now
- maintenance fluids with LR 50 ml/hr for now
- holding spironalctone and lasix
- guaiac all stools
- holding metformin and lantus
DVT PPX - heparin sq for now
Code status - Full code
[2025-02-07] VITALS (9 sets, daily range): BP systolic 119–147; BP diastolic 59–69; BMI 19.4
--- NOTE | 2025-02-07 01:04 | PTCARENOTE ---
Pt admitted to 2122 from ED. Pulled over to bed. placed on tele. VSS. Pt very drowsy, occasionally answers yes/no questions, CASH, denies pain. Bed alarm on. Call varma within reach.
[2025-02-07] MEDS: HEPARIN 5000 UNITS SC ×3 (01:24→17:48)
[2025-02-07] MEDS: LR 1000 IV ×2 (01:25→18:28)
[2025-02-07] MEDS: LACTULOSE ENEMA 300 ML RECTAL ×2 (05:21→13:12)
[2025-02-07 05:30] LABS: Glucose - Point of Care 173 mg/dl (70-99)
[2025-02-07 05:37] LABS: Venous Blood Gas B.E. 4.5 mmol/L (-4 to +4); Venous Blood Gas HCO3 29.8 mmol/L (22-27); Venous Blood Gas O2 Sat % 98.2 %; Venous Blood Gas pCO2 46 mmHg (35-48); Venous Blood Gas pH 7.42 (7.32-7.43); Venous Blood Gas pO2 88 mmHg (30-50)
[2025-02-07 05:46] LABS: Ammonia 54 umol/L (9-30)
[2025-02-07 05:47] LABS: Venous Blood Gas O2 Therapy ROOM AIR
[2025-02-07 06:00] LABS: Hematocrit 38.2 % (37.0-47.0); Hemoglobin 13.1 g/dL (12.0-16.0); Mean Corp Hgb Conc. 34.3 g/dL (33.0-37.0); Mean Corpuscular Hgb 31.7 pg (27.0-31.0); Mean Corpuscular Volume 92.5 fL (81.0-99.0); Mean Platelet Volume 10.8 fL (7.4-10.4); Platelet Count 98 10^3/uL (130-400); Red Blood Cell Count 4.13 10^6/uL (4.20-5.40); Red Cell Dist. Width 13.7 % (11.5-14.5); White Blood Cell Count 7.1 10^3/uL (4.8-10.8)
[2025-02-07] MEDS: NOVOLOG FLEXPEN-LOW RESISTANCE 1 UNITS SC (06:08)
[2025-02-07 06:15] LABS: Blood Urea Nitrogen 41 mg/dl (7-17); Calcium 9.6 mg/dl (8.4-10.2); Carbon Dioxide 26 mmol/L (22-30); Chloride 101 mmol/L (98-107); Estimated Creatinine Clearance 44 ml/min; Glucose 192 mg/dl (70-99); Potassium 4.3 mmol/L (3.5-5.1); Sodium 139 mmol/L (135-145); eGFR 51.18
[2025-02-07] MEDS: COREG PO ×2 (08:58→09:02)
--- NOTE | 2025-02-07 10:49 | W.PN.HOSP.TC ---
Today's Communication/Plan
-
GI consult
Assessment / Plan
Assessment / Plan
Gen-mildly lethargic, NAD
HEENT-NC, AT, anicteric, clear oral mm
Neck-supple
CV-reg, no M, +S1/S2
Lungs-clear B/L
Abd-soft, nondistended, mild tenderness without guarding
Ext-no edema
Musculoskeletal-no cyanosis, clubbing
Skin-warm and dry
Neuro-grossly non-focal
Psych-calm, cooperative
DENIA -suspect related to volume depletion. Creatinine trending down with IV fluids. Furosemide, spironolactone on hold.
Acute Hepatic Encephalopathy - secondary to Alcoholic Liver Disease. Unclear if she was compliant with her lactulose, rifaximin after discharge February 05. She went to SNF.
- Currently getting lactulose enemas.
GI consulted.
� Alcohol abstinence, last drink 2023 as per outpatient note
Paroxysmal atrial flutter -currently in sinus rhythm.
Continue Coreg. Not on anticoagulation due to underlying cirrhosis, bleeding risk. Continue aspirin.
Echo shows LVEF 55 to 60%, stage III diastolic dysfunction, mild AR.
Subacute thrombocytopenia -monitor counts for now.
Chronic HFpEF -stable, continue furosemide, spironolactone.
Essential Hypertension -stable.
Hyperlipidemia -atorvastatin on hold for elevated LFTs.
DM2 with hyperglycemia -hemoglobin A1c 8.7%. Glucose 192 this morning. Home meds on hold, metformin, glipizide and semaglutide. She was discharged to SNF February 05 on Lantus 15 units at bedtime, aspart 10 units AC.
Currently on low resistance NovoLog scale only. Currently NPO.
Hypothyroidism
-Continue levothyroxine
GERD / Monk's Esophagus
-Continue Protonix
Anxiety/Depression
-Continue sertraline and duloxetine
Code Status: Full Code
Anticipated Discharge: > 48 hours
Subjective/Interval History
-
Date of Service: February 07, 2025
Patient seen and examined. No complaints.
Objective Data
-
Labs:
Laboratory Results
02/07/25 02/07/25
05:25 05:26
WBC 7.1
Hgb 13.1
Hct 38.2
Plt Count 98 L
Sodium 139
Potassium 4.3
Chloride 101
Carbon Dioxide 26
BUN 41 H
Creatinine 1.2 H
Glucose 192 H
Calcium 9.6
Vital Signs:
Vital Signs
Temp Pulse Resp BP Pulse Ox
98.2 F 70 16 133/65 97
02/07/25 07:15 02/07/25 07:15 02/07/25 07:15 02/07/25 07:15 02/07/25 07:15
Review of Systems
-
History Source: Patient
All other systems: Reviewed and negative
--- NOTE | 2025-02-07 11:13 | CON.GI ---
Addendum entered and electronically signed by Aurelio Watt MD 02/07/25 17:23:
I saw and examined the patient.
The PA's note was reviewed and I agree with the note.
-- Alcoholic cirrhosis with hepatic encephalopathy -patient was admitted with HE and was discharged 02/[address] head negative. Etiology for readmission not clear ? Compliance vs dehydration
-- DENIA
---abnormal MRI in 10/2024- with severe portal HTN and large portohepatic, portocaval nodes
-- History of Chowdhury's esophagus
plan
Improvement of mental status/ ammonia with lactulose enema this am. If mental status better today and able to swallow - okay to switch to oral lactulose every 4 hours. Titrate to 3-4 BMs per day.
Continue rifaximin
EGD 09/2024-negative for EV. On Coreg
AFP 02/01/2025- 1.36
Recent ultrasound abdomen 01/31/2025 no ascites. Patient was On Lasix/Aldactone. Hold off on it with DENIA. Continue monitor renal function
Patient follows with Dr. Hickman. Will advised to follow-up with her with repeat MRI vs EUS /FNA for lymphadenopathy noted 10/2024
Original Note:
Consultation
-
Date/Time Consultation Requested: 02/07/25 0110
Date/Time Consultation Performed: 02/07/25 1110
Requesting Provider: Dr. Stephens
Performing Provider: Dr. Watt / Mindy Avelar PA-C
Reason for Consultation: confusion, HE
Medical History
Chief Complaint / HPI
Chief Complaint: confusion
History of Present Illness:
This is a 64 year old female with a past medical history of alcoholic cirrhosis who was just recently admitted 01/30-02/05 for hepatic encephalopathy who was discharged to SNF on 02/05/25 but returned to hospital with recurrent somnolence and change in
mental status. She had been discharged on lactulose and Xifaxan and it is questionable whether she was taking these medications, although patient states 'I was taking all that.' She is somnolent at the time of my exam, but arousable and does answer
questions appropriately for the most part. She is AAOx3 (although time could only tell me the year). She denies any abdominal pain. She did feel nauseous and admits to vomiting yesterday. No fevers, chills, diarrhea or constipation. Labs in the ER
showed elevated ammonia level of 95. Lactulose enema was given in the ER and continuing since admission, with improved ammonia level today down to 54. She did have head CT to rule acute bleeding or mass to account for the change in mental status,
which was negative. She denies alcohol use. Labs upon admission showing stable CBC with Hgb 14.2, WBC 10.8, platelets 121. LFTs as follows: total bilirubin 1.4, AST 40, ALT 52, and alk phos 120. Patient denies any abdominal distension. She follows
with Dr. Hickman outpatient and has been recommended to see Hepatology as well.
Patient's other medical histoy significant for: Chowdhury's esophagus, LACEY, CHF, HTN, NIDDM, psoriasis, anxiety, depression, ADHD, hypothyroidism.
Past Medical History
Past Medical History: CHF, GERD, HTN, Hypothyroidism, NIDDM and Other (psoriasis , allergic rhinitis, anxiety/depression, psoriasis, LACEY, ADD, covid, thyroid mass, fatty liver, ETOH cirrhosis with prior noted ascites,portal gastropathy, chowdhury's,
10/2024 abnromal MRI with severe portal HTN and adenopathy )
Past Surgical History: Orthopedic (shoulder surgery), Tonsilectomy and Other (benign breast bx, partial thyroidectomy,)
Social History
Tobacco: Former Smoker
Alcohol: None
Drug: None
Living: Alone
Employment: Retired
Family History
Family History: Other (mother wtih hx lung cA, ? ETOH use, father with DM, CAD, bile duct CA, sibling with panc CA per OP chart )
Allergies / Home Medications
Allergy/AdvReac Type Severity Reaction Status Date / Time
adhesive tape Allergy Swelling Verified 02/07/25 00:31
clarithromycin Allergy Rash/vomiti Verified 02/07/25 00:31
ng
erythromycin base Allergy Tongue Verified 02/07/25 00:31
Swelling
nitrofurantoin Allergy Vomiting Verified 02/07/25 00:31
[From Macrobid]
ofloxacin Allergy Rash/vomiti Verified 02/07/25 00:31
ng
Quinolones Allergy Rash Verified 02/07/25 00:31
Sulfa (Sulfonamide Allergy Rash Verified 02/07/25 00:31
Antibiotics)
sulfamethoxazole Allergy Rash Verified 02/07/25 00:31
trimethoprim Allergy Rash Verified 02/07/25 00:31
�Medication �Instructions �Recorded
levothyroxine 50 mcg tablet 50 mcg PO DAILY Thyroid 02/04/21
metformin 1,000 mg tablet 1,000 mg PO BID Diabetes 02/04/21
duloxetine 30 mg capsule,delayed 30 mg PO BID Mental Health/Anxiety 11/19/24
release
furosemide 40 mg tablet 80 mg PO DAILY Fluid 11/19/24
Retention/Swelling
semaglutide 14 mg tablet (Rybelsus) 14 mg PO DAILY Diabetes 11/19/24
spironolactone 100 mg tablet 100 mg PO DAILY Heart 11/19/24
Disease/Condition
atomoxetine 40 mg capsule 40 mg PO DAILY Mental 01/30/25
(Strattera) Health/Anxiety
carvedilol 3.125 mg tablet (Coreg) 3.125 mg PO BID Heart 01/30/25
Disease/Condition
polyethylene glycol 3350 17 17 g PO DAILY Constipation 01/30/25
gram/dose oral powder (Miralax)
sertraline 25 mg tablet 75 mg PO DAILY Mental 01/30/25
Health/Anxiety
loratadine 10 mg tablet (Claritin) 10 mg PO DAILY Allergies 02/04/25
aspirin 81 mg tablet,delayed 81 mg PO DAILY #0 tabs 02/05/25
release
insulin aspart U-100 100 unit/mL 10 unit (0.1 mL) SC AC #0 mL 02/05/25
(3 mL) subcutaneous pen
lactulose 10 gram/15 mL oral 20 g (30 mL) PO Q4H #0 mL 02/05/25
solution
rifaximin 550 mg tablet (Xifaxan) 550 mg PO BID #0 tabs 02/05/25
acetaminophen 325 mg tablet 650 mg PO Q4HPRN PRN mild pain 02/06/25
(Tylenol)
bisacodyl 10 mg rectal suppository 10 mg [place] DAILYPRN PRN if mom 02/06/25
(Dulcolax (bisacodyl)) ineffective after 24 hrs
insulin glargine 100 unit/mL 15 unit SC HS Diabetes 02/06/25
subcutaneous solution (Lantus
U-100 Insulin)
magnesium hydroxide 400 mg/5 mL 30 ml PO [id number] PRN no bm x3 days 02/06/25
oral suspension (Milk of MagnUserZoom)
omeprazole magnesium 20 mg 40 mg PO DAILY Gastrointestinal 02/06/25
tablet,delayed release (Prilosec Issue
OTC)
polyvinyl alcohol-povidone (PF) 1 drops BOTH EYES Q8HPRN PRN 02/06/25
1.4 %-0.6 % eye drops in a dryness/itchy eyes
dropperette (Refresh Classic (PF))
sodium phosphates 19 gram-7 118 ml [place] DAILYPRN PRN dulcolax 02/06/25
gram/118 mL enema (Fleet Enema) ineffective after 24 hours
Review of Systems
-
History Source: Patient (although somewhat limited due to somnolence/altered mental status)
All other systems: A 12 pt ROS was Negative except as stated above in HPI
Vital Signs
Temp Pulse Resp BP Pulse Ox
98.2 F 70 16 133/65 97
02/07/25 07:15 02/07/25 07:15 02/07/25 07:15 02/07/25 07:15 02/07/25 07:15
Physical Exam
Exam
General: Well Developed, Well Nourished and No Apparent Distress
Respiratory: Clear
Cardiac: Regular Rhythm
GI: Soft, Non Tender, Non Distended and Normal Bowel Sounds
Skin: Warm and Dry
Neuro: AO x 3 and Other (unable to assess for asterixis due to patient's somnolence)
Psych: Other (somnolent but arousable and answeres appropriately/follows commands)
Results
WBC 7.1 10^3/uL (4.8-10.8) 02/07/25 05:25
Hgb 13.1 g/dL (12.0-16.0) 02/07/25 05:25
Hct 38.2 % (37.0-47.0) 02/07/25 05:25
MCV 92.5 fL (81.0-99.0) 02/07/25 05:25
Plt Count 98 10^3/uL (130-400) L 02/07/25 05:25
Absolute Neuts (auto) 9.6 10^3/uL (1.4-6.5) H 02/06/25 18:12
Sodium 139 mmol/L (135-145) 02/07/25 05:26
Potassium 4.3 mmol/L (3.5-5.1) 02/07/25 05:26
Chloride 101 mmol/L (98-107) 02/07/25 05:26
Carbon Dioxide 26 mmol/L (22-30) 02/07/25 05:26
BUN 41 mg/dl (7-17) H 02/07/25 05:26
Creatinine 1.2 mg/dL (0.6-1.0) H 02/07/25 05:26
Calcium 9.6 mg/dl (8.4-10.2) 02/07/25 05:26
Total Bilirubin 1.4 mg/dl (0.2-1.3) H 02/06/25 18:12
AST 40 U/L (14-36) H 02/06/25 18:12
ALT 52 U/L (0-35) H 02/06/25 18:12
Alkaline Phosphatase 120 U/L (38-126) 02/06/25 18:12
Diagnostic Image Results:
CT head w/o IV contrast 02/06/25:
no acute intracranial abnormality
Prior GI Procedures:
EGD: 09/2024 [facility] - No gross lesions in the entire esophagus.
- Z-line irregular, 41 cm from the incisors. WATS-3D
brush biopsy specimens obtained. Biopsied.
- A large amount of food (residue) in the stomach.
- Normal examined duodenum.
bx no metaplasia
EGD 09/2021 - Normal examined duodenum.
- Multiple gastric polyps.
- Small hiatal hernia.
- Z-line irregular, 39 cm from the incisors. WATS-3D
brush biopsy specimens obtained. Biopsied.
- No gross lesions in the entire esophagus.
Col[facility]: [facility] - The examined portion of the ileum was normal.
- Two non-bleeding colonic angioectasias. Treated with
argon plasma coagulation (APC).
- One 3 mm polyp in the transverse colon, removed with
a jumbo cold forceps. Resected and retrieved.
- Normal mucosa in the entire examined colon. Biopsied.
bx HP, neg microscopic colitis
Assessment / Plan
-
Karin returns to the hospital, 1 day after being discharged for hepatic encephalopathy, unclear if she had been taking her outpatient medications Xifaxan and lactulose at the SNF she went to, with recurrent symptoms of altered mental status and
elevated ammonia suggestive of recurrent HE. She has been receiving lacutlose enemas and has improved clinically - now more responsive and with decreasing ammonia levels. Head CT negative and no evidence of acute infectious process. She does report
feeling nauseous and vomited yesterday; although has not had any further vomiting since, and has not had diarrhea or constipation. She denies alcohol use.
IMPRESSION / PLAN:
Hepatic Encephalopathy, secondary to alcoholic cirrhosis (pt not currently drinking)
- initial ammonia on admission 95, now decreased to 54 with lactulose enemas with improving mental status
- continue lactulose; likely OK to switch to PO; otherwise continue per rectum
- start Xifaxan PO, if tolerated
- Prior liver imaging (10/2024 MRI abdomen) showed significant portal hypertension with esophageal and gastric varices, no significant ascites but also large portacaval and large nichole hepatis lymph nodes measuring over 4 cm with extrinsic
compression of the main portal vein
- as previously recommended, outpatient Hepatology follow-up
Other medical issues managed as per hospitalist team.
-
-
Thank you for consultation and allowing me to participate in the patient's care. Please call the [facility] GI physician during the after hours with any questions or concerns.
[2025-02-07 11:55] LABS: Glucose - Point of Care 178 mg/dl (70-99)
[2025-02-07] MEDS: PROTONIX IV 40 MG IV (13:11)
[2025-02-07] MEDS: NSS (PRESERVATIVE FREE) 10 ML IV (13:11)
[2025-02-07] MEDS: NOVOLOG FLEXPEN-LOW RESISTANCE SC (13:19)
--- NOTE | 2025-02-07 14:50 | CM ---
Addendum entered by Jodi Jeffrey 02/07/25 15:48:
Spoke with Lilli from [facility] - no half-way beds available at [facility] at this time
Original Note:
Chart reviewed. Pt sleeping
Adm dx - encephalopathy
Pt was d/c'ed from hospital on 02/04 and transferred to [facility] for short-term. Staff noted change in mental status - pt sent to ED for evaluation. Noted now to also have DENIA
Prior to initial hospitalization pt lived alone in an apartment, was independent with ADL's, no device to ambulate
Received outpatient therapy through [facility] - hx depression/anxiety
Called pts contact Ramila Osuna LM on VM requesting return call
Plan - TBD based on pts progress; will need PT/OT consult to determine dispo
[2025-02-07 17:41] LABS: Glucose - Point of Care 238 mg/dl (70-99)
[2025-02-07] MEDS: NOVOLOG FLEXPEN-LOW RESISTANCE 2 UNITS SC (17:48)
[2025-02-07] MEDS: COREG 3.125 MG PO (20:49)
[2025-02-07] MEDS: XIFAXAN 550 MG PO (20:49)
[2025-02-07] MEDS: DUPHALAC/CHRONULAC 20 GRAMS PO (20:50)
[2025-02-07] MEDS: CYMBALTA DELAYED RELEASE 30 MG PO (20:50)
[2025-02-07] MEDS: DILAUDID 0.5 MG IV (21:10)
[2025-02-08] VITALS (8 sets, daily range): BP systolic 108–134; BP diastolic 48–66; PULSE 62–64; O2SAT 99
[2025-02-08] LABS: Glucose - Point of Care 196 mg/dl (70-99)
[2025-02-08] MEDS: HEPARIN 5000 UNITS SC ×4 (00:03→23:36)
--- NOTE | 2025-02-08 05:12 | W.PN.GI.CBS2 ---
Today's Communication / Plan
-
Mental status much improved. Continue to titrate lactulose with goal BMs of 3-4 while inpatient along with Rifaximin. May restart diuretics at discharge given improved renal recovery. Rest of care as outlined below. GI team will sign-off, please
call back with any questions or concerns.
Assessment / Plan
-
#Decompensated EtOH Cirrhosis w/ Recurrent HE (Dehydration versus missed doses at rehab)
#DENIA
#Abnormal MRI 10/2024 w/ #Severe Portal HTN #Lymphadenopathy
#Hx of BE
Ms. Portillo returns to the hospital, 1 day after being discharged for hepatic encephalopathy, unclear if she had been taking her outpatient medications Xifaxan and lactulose at the SNF she went to, with recurrent symptoms of altered mental status and
elevated ammonia suggestive of recurrent HE. She has been receiving lactulose enemas and has improved clinically - now more responsive and with decreasing ammonia levels. Head CT negative and no evidence of acute infectious process. She does report
feeling nauseous and vomited yesterday; although has not had any further vomiting since, and has not had diarrhea or constipation. She denies alcohol use.
Recommendations:
- Mental status much improved
- Continue oral lactulose an titrate to 3-4 BMs per day while inpatient
- Continue home Rifaximin 550 mg BiD
- Renal function improving and back to baseline, may resume home diuretics at time of discharge
- Suspect secondary to component of dehydration and no receiving at rehab. Discussed importance of continuing lactulose as an outpatient
- EGD 09/2024-negative for EV. On Coreg
- AFP 02/01/2025- 1.36
- Recent ultrasound abdomen 01/31/2025 no ascites. Patient was On Lasix/Aldactone. Hold off on it with DENIA. Continue monitor renal function
- Patient follows with Dr. Hickman. Will advised to follow-up with her with repeat MRI vs EUS /FNA for lymphadenopathy noted 10/2024. Have sent message to our office to coordinate a sooner hospital f/u appt after discharge
- Rest of care per primary team
Discussed with primary internal medicine team. GI will sign-off.
Subjective
Subjective
Date of Service: February 08, 2025
- No acute events overnight, AM labs pending
Mental status improving, tolerating a diet without difficulty. Having multiple BM's, 'too many to count.' Otherwise, mentating appropriately and AAOx4. No abdominal pain or other constitutional or other localizing symptoms.
Objective
Data Reviewed
Laboratory Data:
Laboratory Results
02/07/25 05:25
Laboratory Results
Magnesium 2.0 mg/dl (1.6-2.3) 02/07/25 05:26
Total Bilirubin 1.4 mg/dl (0.2-1.3) H 02/06/25 18:12
AST 40 U/L (14-36) H 02/06/25 18:12
ALT 52 U/L (0-35) H 02/06/25 18:12
Alkaline Phosphatase 120 U/L (38-126) 02/06/25 18:12
Vital Signs and I&O:
Vital Signs
Temp Pulse Resp BP Pulse Ox
97.8 F 64 16 109/66 97
02/08/25 03:33 02/08/25 03:33 02/08/25 03:33 02/08/25 03:33 02/08/25 03:33
I&O
02/06/25 02/07/25 02/08/25
06:59 06:59 06:59
Intake Total 840 / 840
Balance 840 / 840
Physical Exam
Physical Exam
HEENT: Anicteric and Moist mucous membranes
Cardiology: Normal Sinus Rhythm
Pulmonary: Clear
GI: Soft, Non Distended and Non Tender
Extremities: No Edema
Neuro: Non Focal and Other (AAOx3; subtle asterixis)
[2025-02-08] MEDS: SYNTHROID 50 MCG PO (05:43)
[2025-02-08 05:46] LABS: Glucose - Point of Care 139 mg/dl (70-99)
[2025-02-08 08:19] LABS: Glucose - Point of Care 202 mg/dl (70-99)
[2025-02-08 08:25] LABS: ALT (SGPT) 52 U/L (0-35); AST (SGOT) 56 U/L (14-36); Alkaline Phosphatase 89 U/L (38-126); Blood Urea Nitrogen 32 mg/dl (7-17); Calcium 8.9 mg/dl (8.4-10.2); Carbon Dioxide 25 mmol/L (22-30); Chloride 103 mmol/L (98-107); Estimated Creatinine Clearance 53 ml/min; Glucose 155 mg/dl (70-99); Potassium 3.8 mmol/L (3.5-5.1); Sodium 138 mmol/L (135-145); Total Bilirubin 0.8 mg/dl (0.2-1.3); Total Protein 5.5 g/dl (6.3-8.2); eGFR > 60.00
[2025-02-08] MEDS: NOVOLOG FLEXPEN-LOW RESISTANCE 2 UNITS SC (08:43)
[2025-02-08] MEDS: CYMBALTA DELAYED RELEASE 30 MG PO ×2 (08:44→21:07)
[2025-02-08] MEDS: CLARITIN 10 MG PO (08:44)
[2025-02-08] MEDS: ASPIR LOW (ENTERIC COATED) 81 MG PO (08:44)
[2025-02-08] MEDS: ZOLOFT 75 MG PO (08:44)
[2025-02-08] MEDS: XIFAXAN 550 MG PO ×2 (08:44→21:07)
[2025-02-08] MEDS: COREG 3.125 MG PO ×2 (08:44→21:07)
[2025-02-08] MEDS: DUPHALAC/CHRONULAC 20 GRAMS PO ×4 (08:45→21:07)
[2025-02-08] MEDS: NSS (PRESERVATIVE FREE) 10 ML IV (08:45)
[2025-02-08] MEDS: PROTONIX IV 40 MG IV (08:46)
[2025-02-08] MEDS: MIRALAX PO (08:47)
--- NOTE | 2025-02-08 09:34 | W.PN.HOSP.TC ---
Today's Communication/Plan
-
Advance diet to solids
Resume insulin, metformin
PT/OT
Case management consult for discharge planning
Assessment / Plan
Assessment / Plan
Gen-awake, alert, NAD
HEENT-NC, AT, anicteric, clear oral mm
Neck-supple
CV-reg, no M, +S1/S2
Lungs-clear B/L
Abd-soft, nondistended, mild tenderness without guarding
Ext-no edema
Musculoskeletal-no cyanosis, clubbing
Skin-warm and dry
Neuro-grossly non-focal
Psych-calm, cooperative
DENIA -suspect related to volume depletion. Creatinine trending down with IV fluids. Furosemide, spironolactone on hold.
Acute Hepatic Encephalopathy - secondary to Alcoholic Liver Disease. Trigger likely due to missed doses of lactulose and rifaximin in rehab. Mental status much improved overnight.
Continue oral lactulose, rifaximin.
Paroxysmal atrial flutter -currently in sinus rhythm.
Continue Coreg. Not on anticoagulation due to underlying cirrhosis, bleeding risk. Continue aspirin.
Echo shows LVEF 55 to 60%, stage III diastolic dysfunction, mild AR.
Subacute thrombocytopenia -monitor counts for now.
Chronic HFpEF -stable, continue furosemide, spironolactone.
Essential Hypertension -stable.
Hyperlipidemia -atorvastatin on hold for elevated LFTs.
DM2 with hyperglycemia -hemoglobin A1c 8.7%. Glucose 155 this morning. Home medications were metformin, glipizide and semaglutide. She was discharged to rehab February 05 on Lantus 15 units at bedtime, NovoLog 10 units AC. Resume metformin, resume
Lantus, resume NovoLog at lower dose.
Hypothyroidism
-Continue levothyroxine
GERD / Monk's Esophagus
-Continue Protonix
Anxiety/Depression
-Continue sertraline and duloxetine
Code Status: Full Code
Dispo -anticipate discharge to SNF. Consult PT/OT. Patient requesting a different SNF given her experience at the previous one with missed doses of medications.
Anticipated Discharge: 24 - 48 hours
Subjective/Interval History
-
Date of Service: February 08, 2025
Patient seen and examined. Overall feeling better. Complaining of some weakness.
Objective Data
-
Labs:
Laboratory Results
02/08/25
06:30
Sodium 138
Potassium 3.8
Chloride 103
Carbon Dioxide 25
BUN 32 H
Creatinine 1.0
Glucose 155 H
Calcium 8.9
Total Bilirubin 0.8
AST 56 H
ALT 52 H
Alkaline Phosphatase 89
Vital Signs:
Vital Signs
Temp Pulse Resp BP Pulse Ox
97.6 F 66 16 108/49 100
02/08/25 07:30 02/08/25 08:44 02/08/25 07:30 02/08/25 08:44 02/08/25 07:30
I&O
02/07/25 02/08/25 02/09/25
06:59 06:59 06:59
Intake Total 1680 / 1680
Balance 1680 / 1680
Review of Systems
-
History Source: Patient
All other systems: Reviewed and negative
[2025-02-08] MEDS: GLUCOPHAGE 1000 MG PO ×2 (10:19→17:48)
[2025-02-08 11:34] LABS: Glucose - Point of Care 359 mg/dl (70-99)
--- NOTE | 2025-02-08 13:30 | CM ---
CM following re: discharge planning.
Reviewed pt's chart, met with pt and pt's best friend at bedside.
Pt reports she lives alone in an apartment, has no family, has supportive friends. Pt reports she is on fixed SSD anf has some savings. Per friend Jerilyn, pt will not be able to continue living alone in her apartment, it is not safe. Pt expressed her
agreement. Pt stated she was at [facility] just one day, expressed her negative feelings being there and pt stated she will never ever go to [facility] again. Emotional support offered and provided.
Living options other than independent discussed with pt and her friend. Per Jerilyn, pt has many friends and she will discuss with them a possibility that pt goes to a short term rehab and after will live with one of the friend. Pt expressed her
great motivation. Per Jerilyn, pt will not afford living at an [facility] due to limited savings. Per Lucille, living in a nursing is a last one options and she will talk to her friend to develop a plan for pt to live with one of her friend.
PT and OT evaluations pending.
D/C plan: most likely SNF for a short term rehab with a plan to live with one of pt's friend or transition to a long goods drier care.
CM will follow with discharge plan updates as hospitalization progresses
[2025-02-08] MEDS: NOVOLOG FLEXPEN 6 UNITS SC ×2 (13:39→17:46)
[2025-02-08] MEDS: NOVOLOG FLEXPEN-LOW RESISTANCE 5 UNITS SC (13:40)
[2025-02-08 17:46] LABS: Glucose - Point of Care 142 mg/dl (70-99)
[2025-02-08] MEDS: NOVOLOG FLEXPEN-LOW RESISTANCE SC (17:47)
[2025-02-08] MEDS: DILAUDID 0.5 MG IV (21:07)
[2025-02-08] MEDS: LANTUS 0.15 UNITS SC (21:31)
[2025-02-08 21:32] LABS: Glucose - Point of Care 198 mg/dl (70-99)
[2025-02-09 06:00] VITALS: BMI 19.4
[2025-02-09] MEDS: SYNTHROID 50 MCG PO (06:14)
[2025-02-09 07:10] VITALS: BP 120/53
[2025-02-09 07:26] LABS: Glucose - Point of Care 181 mg/dl (70-99)
[2025-02-09 09:09] LABS: ALT (SGPT) 78 U/L (0-35); AST (SGOT) 70 U/L (14-36); Alkaline Phosphatase 152 U/L (38-126); Blood Urea Nitrogen 23 mg/dl (7-17); Calcium 9.3 mg/dl (8.4-10.2); Carbon Dioxide 25 mmol/L (22-30); Chloride 100 mmol/L (98-107); Estimated Creatinine Clearance 59 ml/min; Glucose 191 mg/dl (70-99); Potassium 4.4 mmol/L (3.5-5.1); Sodium 135 mmol/L (135-145); Total Bilirubin 0.7 mg/dl (0.2-1.3); Total Protein 5.4 g/dl (6.3-8.2); eGFR > 60.00
[2025-02-09] MEDS: MIRALAX 17 GRAMS PO (09:14)
[2025-02-09] MEDS: ASPIR LOW (ENTERIC COATED) 81 MG PO (09:14)
[2025-02-09] MEDS: GLUCOPHAGE 1000 MG PO ×2 (09:14→16:07)
[2025-02-09] MEDS: ZOLOFT 75 MG PO (09:14)
[2025-02-09] MEDS: COREG 3.125 MG PO ×2 (09:15→20:55)
[2025-02-09] MEDS: LASIX 80 MG PO (09:15)
[2025-02-09] MEDS: HEPARIN 5000 UNITS SC ×2 (09:15→16:07)
[2025-02-09] MEDS: XIFAXAN 550 MG PO ×2 (09:15→20:55)
[2025-02-09] MEDS: NOVOLOG FLEXPEN-LOW RESISTANCE 1 UNITS SC (09:16)
[2025-02-09] MEDS: DUPHALAC/CHRONULAC 20 GRAMS PO ×4 (09:16→22:05)
[2025-02-09] MEDS: PROTONIX IV 40 MG IV (09:16)
[2025-02-09] MEDS: NSS (PRESERVATIVE FREE) 10 ML IV (09:16)
[2025-02-09] MEDS: CYMBALTA DELAYED RELEASE 30 MG PO ×2 (09:16→20:55)
[2025-02-09] MEDS: CLARITIN 10 MG PO (09:16)
[2025-02-09] MEDS: NOVOLOG FLEXPEN 6 UNITS SC (09:17)
[2025-02-09 11:41] LABS: Glucose - Point of Care 275 mg/dl (70-99)
--- NOTE | 2025-02-09 12:24 | W.PN.HOSP.TC ---
Today's Communication/Plan
-
Adjust insulin
Assessment / Plan
Assessment / Plan
Gen-awake, alert, NAD
HEENT-NC, AT, anicteric, clear oral mm
Neck-supple
CV-reg, no M, +S1/S2
Lungs-clear B/L
Abd-soft, nondistended, mild tenderness without guarding
Ext-no edema
Musculoskeletal-no cyanosis, clubbing
Skin-warm and dry
Neuro-grossly non-focal
Psych-calm, cooperative
DENIA -suspect related to volume depletion. DENIA resolved. Can resume furosemide, spironolactone.
Acute Hepatic Encephalopathy - secondary to Alcoholic Liver Disease. Trigger likely due to missed doses of lactulose and rifaximin in rehab. Mental status much improved overnight.
Continue oral lactulose, rifaximin, goal of 3-4 loose bowel movements daily.
Paroxysmal atrial flutter -currently in sinus rhythm.
Continue Coreg. Not on anticoagulation due to underlying cirrhosis, bleeding risk. Continue aspirin.
Echo shows LVEF 55 to 60%, stage III diastolic dysfunction, mild AR.
Subacute thrombocytopenia -monitor counts for now.
Chronic HFpEF -stable, continue furosemide, spironolactone.
Essential Hypertension -stable.
Hyperlipidemia -atorvastatin on hold for elevated LFTs.
DM2 with hyperglycemia -hemoglobin A1c 8.7%. Glucose 191 this morning. Home medications were metformin, glipizide and semaglutide. She was discharged to rehab February 05 on Lantus 15 units at bedtime, NovoLog 10 units AC. Continue metformin,
Lantus, increase NovoLog to 10 units AC.
Hypothyroidism
-Continue levothyroxine
GERD / Monk's Esophagus
-Continue Protonix
Anxiety/Depression
-Continue sertraline and duloxetine
Code Status: Full Code
Dispo -stable for discharge to SNF. Case management aware.
Anticipated Discharge: 24 - 48 hours
Subjective/Interval History
-
Date of Service: February 09, 2025
Patient seen and examined. No complaints.
Objective Data
-
Labs:
Laboratory Results
02/09/25
07:02
Sodium 135
Potassium 4.4
Chloride 100
Carbon Dioxide 25
BUN 23 H
Creatinine 0.9
Glucose 191 H
Calcium 9.3
Total Bilirubin 0.7
AST 70 H
ALT 78 H
Alkaline Phosphatase 152 H
Vital Signs:
Vital Signs
Temp Pulse Resp BP Pulse Ox
98.1 F 65 16 120/53 97
02/09/25 07:10 02/09/25 09:15 02/09/25 07:10 02/09/25 09:15 02/09/25 10:52
I&O
02/08/25 02/09/25 02/10/25
06:59 06:59 06:59
Intake Total 1680 / 1680 1999
Balance 1680 / 1680 1999
Review of Systems
-
History Source: Patient
All other systems: Reviewed and negative
[2025-02-09] MEDS: NOVOLOG FLEXPEN SC (12:45)
[2025-02-09] MEDS: NOVOLOG FLEXPEN-LOW RESISTANCE 3 UNITS SC (13:14)
[2025-02-09] MEDS: NOVOLOG FLEXPEN 10 UNITS SC ×2 (13:14→18:02)
--- NOTE | 2025-02-09 14:03 | CM ---
Reviewed the chart notes and spoke with the patient and friend at the bedside. Per patient, Regina ([phone]) is the person to contact to discuss discharge plans. Voice message left for call back. CM continues to be available to
patient/family and is monitoring medical plan for needs at discharge.
Plan: Discharge to SNF/rehab once a facility is selected, bed secured, and auth obtained.
[2025-02-09 15:05] VITALS: BP 112/55
[2025-02-09] MEDS: ZOFRAN 4 MG IV ×2 (16:07→22:15)
[2025-02-09] MEDS: LACTULOSE ENEMA 300 ML RECTAL (16:40)
[2025-02-09 16:43] LABS: Glucose - Point of Care 223 mg/dl (70-99)
[2025-02-09] MEDS: NOVOLOG FLEXPEN-LOW RESISTANCE 2 UNITS SC (18:02)
--- NOTE | 2025-02-09 18:47 | PTCARENOTE ---
Patient c/o nausea throughout this shift, no BM into afternoon despite passing gas, eating breakfast and lunch, and having scheduled lactulose. Patient administered PRN MD ayana made aware of patient complaints, one time order of lactulose enema
ordered per MD and administered by this RN. Patient with large loose brown BM on commode after enema, states minor improvement in nausea, dinner at bedside.
[2025-02-09 21:44] LABS: Glucose - Point of Care 181 mg/dl (70-99)
[2025-02-09] MEDS: LANTUS 0.15 UNITS SC (22:05)
[2025-02-09] MEDS: DILAUDID 0.5 MG IV (22:08)
[2025-02-09 23:11] VITALS: BP 112/54
[2025-02-10] MEDS: HEPARIN 5000 UNITS SC ×4 (00:33→23:07)
[2025-02-10] MEDS: DUPHALAC/CHRONULAC 20 GRAMS PO ×6 (02:35→21:34)
[2025-02-10 05:45] VITALS: BMI 19.4
[2025-02-10] MEDS: SYNTHROID 50 MCG PO (06:08)
[2025-02-10 07:10] VITALS: BP 112/56
[2025-02-10 07:24] LABS: Glucose - Point of Care 161 mg/dl (70-99)
[2025-02-10] MEDS: MIRALAX 17 GRAMS PO (09:55)
[2025-02-10] MEDS: ASPIR LOW (ENTERIC COATED) 81 MG PO (09:56)
[2025-02-10] MEDS: LASIX 80 MG PO (09:56)
[2025-02-10] MEDS: XIFAXAN 550 MG PO ×2 (09:56→21:34)
[2025-02-10] MEDS: GLUCOPHAGE 1000 MG PO ×2 (09:56→16:52)
[2025-02-10] MEDS: CLARITIN 10 MG PO (09:56)
[2025-02-10] MEDS: ALDACTONE 100 MG PO (09:56)
[2025-02-10] MEDS: COREG 3.125 MG PO ×2 (09:56→21:34)
[2025-02-10] MEDS: CYMBALTA DELAYED RELEASE 30 MG PO ×2 (09:57→21:35)
[2025-02-10] MEDS: NSS (PRESERVATIVE FREE) 10 ML IV (09:57)
[2025-02-10] MEDS: NOVOLOG FLEXPEN 10 UNITS SC ×3 (09:58→17:44)
[2025-02-10] MEDS: NOVOLOG FLEXPEN-LOW RESISTANCE 1 UNITS SC ×2 (09:58→17:44)
[2025-02-10] MEDS: ZOLOFT 75 MG PO (09:59)
[2025-02-10] MEDS: PROTONIX IV 40 MG IV (09:59)
--- NOTE | 2025-02-10 10:45 | W.PN.HOSP.TC ---
Today's Communication/Plan
-
Continue current care
Assessment / Plan
Assessment / Plan
Gen-awake, alert, NAD
HEENT-NC, AT, anicteric, clear oral mm
Neck-supple
CV-reg, no M, +S1/S2
Lungs-clear B/L
Abd-soft, nondistended, mild tenderness without guarding
Ext-no edema
Musculoskeletal-no cyanosis, clubbing
Skin-warm and dry
Neuro-grossly non-focal
Psych-calm, cooperative
DENIA -suspect related to volume depletion. DENIA resolved. Resumed furosemide, spironolactone.
Acute Hepatic Encephalopathy - secondary to Alcoholic Liver Disease. Trigger likely due to missed doses of lactulose and rifaximin in rehab. Mental status much improved overnight.
Continue oral lactulose, rifaximin, goal of 3-4 loose bowel movements daily. Lactulose dose increased to every 4 hours.
Paroxysmal atrial flutter -currently in sinus rhythm.
Continue Coreg. Not on anticoagulation due to underlying cirrhosis, bleeding risk. Continue aspirin.
Echo shows LVEF 55 to 60%, stage III diastolic dysfunction, mild AR.
Subacute thrombocytopenia -monitor counts for now.
Chronic HFpEF -stable, continue furosemide, spironolactone.
Essential Hypertension -stable.
Hyperlipidemia -atorvastatin on hold for elevated LFTs.
DM2 with hyperglycemia -hemoglobin A1c 8.7%. Glucose 161 this morning. Home medications were metformin, glipizide and semaglutide. Metformin resumed. Continue current doses of Lantus 15 units at bedtime, NovoLog 10 units AC.
Hypothyroidism
-Continue levothyroxine
GERD / Monk's Esophagus
-Continue Protonix
Anxiety/Depression
-Continue sertraline and duloxetine
Code Status: Full Code
Dispo -stable for discharge to SNF. Case management aware.
Anticipated Discharge: Within 24 hours
Subjective/Interval History
-
Date of Service: February 10, 2025
Patient seen and examined. Complaining of mild nausea. Finished her breakfast.
Objective Data
-
Vital Signs:
Vital Signs
Temp Pulse Resp BP Pulse Ox
98.3 F 69 16 112/56 99
02/10/25 07:10 02/10/25 07:10 02/10/25 07:10 02/10/25 07:10 02/10/25 07:10
I&O
02/09/25 02/10/25 02/11/25
06:59 06:59 06:59
Intake Total 1999 1260 / 1260
Balance 1999 1260 / 1260
Review of Systems
-
History Source: Patient
All other systems: Reviewed and negative
[2025-02-10] MEDS: ZOFRAN 4 MG IV ×2 (11:09→22:03)
--- NOTE | 2025-02-10 11:36 | CM ---
Reviewed the chart notes and received call back from Regina ([phone]) the patient's friend. Discussed area SNFs, she is from [facility] and not familiar with SNFs in the area. She is agreeable to referrals being sent to area facilities.
She did confirmed that the patient's friends Jerilyn and Jeanie will take patient in at discharge from SNF. CM spoke with Jerilyn ([phone]). Permission to speak with her received from patient. Per Jerilyn, she and her spouse (Jeanie) are will to
have patient resides with them when discharged from SNF provided she can be left alone at times. She was also agreeable to referrals being sent to area SNFs. CM continues to be available to patient/family and is monitoring medical plan for needs
at discharge.
Plan: Discharge to SNF/rehab when medically stable. Pre-auth will be required.
[2025-02-10 12:09] LABS: Glucose - Point of Care 235 mg/dl (70-99)
[2025-02-10] MEDS: NOVOLOG FLEXPEN-LOW RESISTANCE 2 UNITS SC (12:56)
[2025-02-10 15:10] VITALS: BP 112/50
[2025-02-10 16:59] LABS: Glucose - Point of Care 178 mg/dl (70-99)
[2025-02-10] MEDS: DILAUDID 0.5 MG IV (22:03)
[2025-02-10 22:45] LABS: Glucose - Point of Care 75 mg/dl (70-99)
[2025-02-10] MEDS: LANTUS SC (22:56)
[2025-02-10 23:00] VITALS: BP 118/53
[2025-02-10] MEDS: LANTUS 0.05 UNITS SC (23:07)
[2025-02-11] MEDS: DUPHALAC/CHRONULAC 20 GRAMS PO ×6 (02:42→22:23)
[2025-02-11 02:48] LABS: Glucose - Point of Care 109 mg/dl (70-99)
[2025-02-11] MEDS: SYNTHROID 50 MCG PO (06:18)
[2025-02-11 06:58] VITALS: BMI 19.3
[2025-02-11 07:10] VITALS: BP 111/47
[2025-02-11 07:20] LABS: Glucose - Point of Care 145 mg/dl (70-99)
[2025-02-11] MEDS: NOVOLOG FLEXPEN-LOW RESISTANCE SC (07:27)
[2025-02-11] MEDS: MIRALAX 17 GRAMS PO (08:26)
[2025-02-11] MEDS: NSS (PRESERVATIVE FREE) 10 ML IV (08:27)
[2025-02-11] MEDS: ASPIR LOW (ENTERIC COATED) 81 MG PO (08:28)
[2025-02-11] MEDS: HEPARIN 5000 UNITS SC ×2 (08:28→15:34)
[2025-02-11] MEDS: PROTONIX IV 40 MG IV (08:28)
[2025-02-11] MEDS: COREG 3.125 MG PO ×2 (08:28→20:30)
[2025-02-11] MEDS: ZOLOFT 75 MG PO (08:28)
[2025-02-11] MEDS: LASIX 80 MG PO (08:29)
[2025-02-11] MEDS: CYMBALTA DELAYED RELEASE 30 MG PO ×2 (08:29→20:30)
[2025-02-11] MEDS: XIFAXAN 550 MG PO ×2 (08:29→20:30)
[2025-02-11] MEDS: ALDACTONE 100 MG PO (08:29)
[2025-02-11] MEDS: GLUCOPHAGE 1000 MG PO ×2 (08:29→17:17)
[2025-02-11] MEDS: CLARITIN 10 MG PO (08:29)
[2025-02-11] MEDS: NOVOLOG FLEXPEN 10 UNITS SC ×3 (08:29→17:15)
[2025-02-11 10:03] VITALS: BP 102/43; BP 117/50; PULSE 66; O2SAT 100
[2025-02-11 10:35] LABS: Hematocrit 32.2 % (37.0-47.0); Hemoglobin 11.5 g/dL (12.0-16.0); Mean Corp Hgb Conc. 35.7 g/dL (33.0-37.0); Mean Corpuscular Hgb 31.4 pg (27.0-31.0); Mean Platelet Volume 11.3 fL (7.4-10.4); Platelet Count 86 10^3/uL (130-400); Red Blood Cell Count 3.66 10^6/uL (4.20-5.40); Red Cell Dist. Width 13.7 % (11.5-14.5); White Blood Cell Count 5.7 10^3/uL (4.8-10.8)
[2025-02-11 10:50] LABS: ALT (SGPT) 59 U/L (0-35); AST (SGOT) 44 U/L (14-36); Albumin 3.3 g/dl (3.5-5.0); Alkaline Phosphatase 108 U/L (38-126); Blood Urea Nitrogen 20 mg/dl (7-17); Calcium 9.1 mg/dl (8.4-10.2); Carbon Dioxide 25 mmol/L (22-30); Chloride 94 mmol/L (98-107); Estimated Creatinine Clearance 44 ml/min; Glucose 247 mg/dl (70-99); Potassium 4.3 mmol/L (3.5-5.1); Sodium 132 mmol/L (135-145); Total Protein 5.8 g/dl (6.3-8.2); eGFR 51.18
[2025-02-11 11:15] LABS: Absolute Neutrophils -Man Diff 3.4 10^3/uL (1.4-6.5); Band Neutrophils 1 % (0-3); Eosinophils 2 % (0-6); Lymphocytes 33 % (20-51); Monocytes 5 % (2-9); Platelets Checked Yes; Segmented Neutrophils 59 % (42-75)
[2025-02-11 11:16] LABS: Normal RBC Morphology Yes; Total Cells Counted 100
[2025-02-11 11:43] LABS: Glucose - Point of Care 211 mg/dl (70-99)
--- NOTE | 2025-02-11 11:43 | W.PN.HOSP.TC ---
Today's Communication/Plan
-
await placement
gentle IVF
reduce diuretics
Assessment / Plan
Assessment / Plan
Gen-awake, alert, NAD
HEENT-NC, AT, anicteric, clear oral mm
Neck-supple
CV-reg, no M, +S1/S2
Lungs-clear B/L
Abd-soft, nondistended, mild tenderness without guarding
Ext-no edema
Musculoskeletal-no cyanosis, clubbing
Skin-warm and dry
Neuro-grossly non-focal
Psych-calm, cooperative
DENIA -suspect related to volume depletion. reduce furosemide, spironolactone dose. Gentle IVF.
Acute Hepatic Encephalopathy - secondary to Alcoholic Liver Disease. Trigger likely due to missed doses of lactulose and rifaximin in rehab. Mental status much improved
Continue oral lactulose, rifaximin, goal of 3-4 loose bowel movements daily. Lactulose dose increased to every 4 hours.
Paroxysmal atrial flutter -currently in sinus rhythm.
Continue Coreg. Not on anticoagulation due to underlying cirrhosis, bleeding risk. Continue aspirin.
Echo shows LVEF 55 to 60%, stage III diastolic dysfunction, mild AR.
Subacute thrombocytopenia -monitor counts for now.
Chronic HFpEF -stable, reduce furosemide, spironolactone dose to 40mg/50mg
Essential Hypertension -stable.
Hyperlipidemia -atorvastatin on hold for elevated LFTs. DC for now and can restart if once AST/ALT normalize if it does.
DM2 with hyperglycemia -hemoglobin A1c 8.7%. Glucose 145 this morning. Home medications were metformin, glipizide and semaglutide. Metformin resumed. Continue reduce doses of Lantus 8 units at bedtime, NovoLog 10 units AC.
Hypothyroidism
-Continue levothyroxine
GERD / Monk's Esophagus
-Continue Protonix
Mild hyponatremia
-monitor
Anxiety/Depression
-Continue sertraline and duloxetine
Code Status: Full Code
Dispo -stable for discharge to SNF. Case management aware.
Anticipated Discharge: Today
Subjective/Interval History
-
Date of Service: February 11, 2025
tolerating diet
had multiple bm yesterday
Objective Data
-
Labs:
Laboratory Results
02/11/25
10:24
WBC 5.7
Hgb 11.5 L
Hct 32.2 L
Plt Count 86 L
Sodium 132 L
Potassium 4.3
Chloride 94 L
Carbon Dioxide 25
BUN 20 H
Creatinine 1.2 H
Glucose 247 H
Calcium 9.1
Total Bilirubin 1.0
AST 44 H
ALT 59 H
Alkaline Phosphatase 108
Vital Signs:
Vital Signs
Temp Pulse Resp BP Pulse Ox
98.0 F 66 16 111/47 99
02/11/25 07:10 02/11/25 07:10 02/11/25 07:10 02/11/25 07:10 02/11/25 07:10
I&O
02/10/25 02/11/25 02/12/25
06:59 06:59 06:59
Intake Total 1260 / 1260 800 / 800
Balance 1260 / 1260 800 / 800
Data Reviewed
-
Total Time Spent with Patient (in minutes): 55
[2025-02-11] MEDS: NOVOLOG FLEXPEN-LOW RESISTANCE 2 UNITS SC (12:06)
[2025-02-11 12:39] VITALS: BP 128/59; PULSE 62
[2025-02-11] MEDS: NSS 500 IV (12:53)
--- NOTE | 2025-02-11 14:26 | CM ---
Chart reviewed
Pt for SNF - referrals sent
[facility] - no beds today
[facility] - reviewed referral - unable to accept
[facility] - will review referral and call with determination
Will need auth when bed obtained
Plan - SNF when bed and auth obtained
[2025-02-11 15:22] VITALS: BP 107/72
[2025-02-11 16:35] LABS: Glucose - Point of Care 181 mg/dl (70-99)
[2025-02-11] MEDS: NOVOLOG FLEXPEN-LOW RESISTANCE 1 UNITS SC (17:14)
[2025-02-11] MEDS: DILAUDID 0.5 MG IV (22:23)
[2025-02-11] MEDS: LANTUS 0.08 UNITS SC (22:23)
[2025-02-11 22:25] LABS: Glucose - Point of Care 153 mg/dl (70-99)
[2025-02-11 23:18] VITALS: BP 109/59
[2025-02-12] MEDS: HEPARIN 5000 UNITS SC ×4 (00:44→23:53)
[2025-02-12] MEDS: DUPHALAC/CHRONULAC 20 GRAMS PO ×6 (01:43→21:35)
[2025-02-12 06:00] VITALS: BMI 19.4
[2025-02-12] MEDS: SYNTHROID 50 MCG PO (06:06)
[2025-02-12 07:17] VITALS: BP 99/55
[2025-02-12 07:22] LABS: Glucose - Point of Care 170 mg/dl (70-99)
[2025-02-12 08:07] LABS: Hematocrit 31.8 % (37.0-47.0); Hemoglobin 10.9 g/dL (12.0-16.0); Mean Corp Hgb Conc. 34.3 g/dL (33.0-37.0); Mean Corpuscular Hgb 31.6 pg (27.0-31.0); Mean Corpuscular Volume 92.2 fL (81.0-99.0); Mean Platelet Volume 11.8 fL (7.4-10.4); Platelet Count 103 10^3/uL (130-400); Red Blood Cell Count 3.45 10^6/uL (4.20-5.40); Red Cell Dist. Width 13.4 % (11.5-14.5); White Blood Cell Count 7.6 10^3/uL (4.8-10.8)
[2025-02-12 08:37] LABS: ALT (SGPT) 52 U/L (0-35); AST (SGOT) 35 U/L (14-36); Albumin 2.9 g/dl (3.5-5.0); Alkaline Phosphatase 103 U/L (38-126); Blood Urea Nitrogen 22 mg/dl (7-17); Calcium 9.5 mg/dl (8.4-10.2); Carbon Dioxide 30 mmol/L (22-30); Chloride 97 mmol/L (98-107); Estimated Creatinine Clearance 48 ml/min; Glucose 165 mg/dl (70-99); Potassium 4.4 mmol/L (3.5-5.1); Sodium 135 mmol/L (135-145); Total Protein 5.5 g/dl (6.3-8.2); eGFR 56.81
[2025-02-12 08:58] LABS: % Basophils 0.8 % (0-2); % Eosinophils 4.6 % (0-6); % Immature Granulocytes 0.5 % (0-0.5); % Lymphocytes 30.4 % (20.5-51.1); % Monocytes 10.7 % (1.7-9.3); Absolute Basophils 0.1 10^3/uL (0-0.2); Absolute Eosinophils 0.4 10^3/uL (0-0.7); Absolute Lymphocytes 2.3 10^3/uL (1.2-3.4); Absolute Monocytes 0.8 10^3/uL (0.1-0.6); Absolute Neutrophils 4.1 10^3/uL (1.4-6.5); Nucleated Red Blood Cells % 0 %
[2025-02-12] MEDS: ASPIR LOW (ENTERIC COATED) 81 MG PO (09:05)
[2025-02-12] MEDS: GLUCOPHAGE 1000 MG PO ×2 (09:05→16:39)
[2025-02-12] MEDS: ZOLOFT 75 MG PO (09:05)
[2025-02-12] MEDS: PROTONIX 40 MG PO (09:05)
[2025-02-12] MEDS: CLARITIN 10 MG PO (09:06)
[2025-02-12] MEDS: CYMBALTA DELAYED RELEASE 30 MG PO ×2 (09:06→20:25)
[2025-02-12] MEDS: XIFAXAN 550 MG PO ×2 (09:06→20:25)
[2025-02-12] MEDS: MIRALAX 17 GRAMS PO (09:06)
[2025-02-12] MEDS: NOVOLOG FLEXPEN 10 UNITS SC ×3 (09:07→16:39)
[2025-02-12] MEDS: NOVOLOG FLEXPEN-LOW RESISTANCE 1 UNITS SC ×2 (09:07→16:39)
[2025-02-12] MEDS: COREG 3.125 MG PO ×2 (09:19→20:26)
--- NOTE | 2025-02-12 09:19 | CM ---
Addendum entered by [facility] 02/12/25 16:47:
Rcd call from Danisha - Rifaximin requires prior auth - Dr Parrish made aware
per Dr Parrish - plan to hold medication until pt seen as outpatient by GI
Updated Danisha
Addendum entered by [facility] 02/12/25 15:07:
Transport at 6PM. Updated Shelly at [facility] and Danisha(POA)
Danisha to provide payment to [facility] for wheel chair van - given phone number
Addendum entered by [facility] 02/12/25 14:40:
Updated pts friend/POA Danisha of d/c plan
Transport to be arranged
Addendum entered by [facility] 02/12/25 14:28:
Spoke with Khadra at [facility] to obtain auth
Auth approved for 7 days; start date 02/12
NRD 02/18 - call [phone] with updated clinicals
Updated Shelly at [facility]
Plan - transfer to [facility]
R - [phone]
F - [phone]
Addendum entered by [facility] 02/12/25 13:45:
Spoke with Danisha -friend/POA - can provide medication to facility
Updated [facility] at [facility] - can offer bed today - will require auth
Plan - transfer to [facility] when auth obtained
Addendum entered by [facility] 02/12/25 11:42:
Spoke with Shelly at [facility]
Pt taking Rifaximin and Rybelsus prior to admission - pt would need to provide personal supply of medication if needed at d/c
Confirmed with Dr Parrish - will be discharged on medications
LM with Danisha - pts friend/POA requesting return call to update
Original Note:
Chart reviewed - medically ready for d/c
LM for [facility] - checking bed availability
Rcd call from Danisha, pts friend/POA, updated - pt medically ready for d/c, no bed at current time at facility's requested. Requested additional facilities. Referrals sent to [facility] and [facility] - awaiting review.
Will update when bed obtained
Will require auth
Plan - SNF when bed/auth obtained
[2025-02-12] MEDS: PROTONIX IV IV (09:29)
[2025-02-12] MEDS: NSS (PRESERVATIVE FREE) IV (09:29)
--- NOTE | 2025-02-12 11:35 | W.PN.HOSP.TC ---
Addendum entered and electronically signed by Eliezer Parrish MD 02/12/25 17:39:
POA Danisha updated.
Addendum entered and electronically signed by Eliezer Parrish MD 02/12/25 17:33:
Also per Dr. Tolentino no samples available per protocol.
Addendum entered and electronically signed by Eliezer Parrish MD 02/12/25 17:31:
Patient not able to afford rifaximin. Discussed with pharmacy [facility]. Called insurance company for authorization and placed an urgent appeal to review the case. Confirmation number [id number].
Did also discussed with gastroenterology Dr. Tolentino. If patient unable to afford or not able to get approved for rifaximin then continue to hold and then follow-up outpatient with gastroenterology for further management. In the interim can further
continue with lactulose.
Original Note:
Today's Communication/Plan
-
await placement
adjust insulin
cont lactulose goal 3-4 loose bm
Assessment / Plan
Assessment / Plan
Gen-awake, alert, NAD
HEENT-NC, AT, anicteric, clear oral mm
Neck-supple
CV-reg, no M, +S1/S2
Lungs-clear B/L
Abd-soft, nondistended, mild tenderness without guarding
Ext-no edema
Musculoskeletal-no cyanosis, clubbing
Skin-warm and dry
Neuro-grossly non-focal
Psych-calm, cooperative
DENIA -suspect related to volume depletion. reduce furosemide, spironolactone dose and restart in 24h. . Cr improved.
Acute Hepatic Encephalopathy - secondary to Alcoholic Liver Disease. Trigger likely due to missed doses of lactulose and rifaximin in rehab. Mental status much improved
Continue oral lactulose, rifaximin, goal of 3-4 loose bowel movements daily. Lactulose dose increased to every 4 hours.
Paroxysmal atrial flutter -currently in sinus rhythm.
Continue Coreg. Not on anticoagulation due to underlying cirrhosis, bleeding risk. Continue aspirin.
Echo shows LVEF 55 to 60%, stage III diastolic dysfunction, mild AR.
Subacute thrombocytopenia -monitor counts for now.
Chronic HFpEF -stable, reduce furosemide, spironolactone dose to 40mg/50mg
Essential Hypertension -stable.
Hyperlipidemia -atorvastatin on hold for elevated LFTs. DC for now and can restart if once AST/ALT normalize if it does.
DM2 with hyperglycemia -hemoglobin A1c 8.7%. Glucose 170 this morning. Home medications were metformin, and rybelsus. Metformin resumed. Continue reduce doses of Lantus 10 units at bedtime, NovoLog 10 units AC.
Hypothyroidism
-Continue levothyroxine
GERD / Monk's Esophagus
-Continue Protonix
Mild hyponatremia
-monitor
Anxiety/Depression
-Continue sertraline and duloxetine
Code Status: Full Code
Dispo -stable for discharge to SNF. Case management aware.
Anticipated Discharge: Today
Subjective/Interval History
-
Date of Service: February 12, 2025
tolerating breakfast
worked w/PT
no abd pain
Objective Data
-
Labs:
Laboratory Results
02/12/25
06:43
WBC 7.6
Hgb 10.9 L
Hct 31.8 L
Plt Count 103 L
Sodium 135
Potassium 4.4
Chloride 97 L
Carbon Dioxide 30
BUN 22 H
Creatinine 1.1 H
Glucose 165 H
Calcium 9.5
Total Bilirubin 1.0
AST 35
ALT 52 H
Alkaline Phosphatase 103
Vital Signs:
Vital Signs
Temp Pulse Resp BP Pulse Ox
98.4 F 73 16 120/61 100
02/12/25 07:17 02/12/25 09:19 02/12/25 07:17 02/12/25 09:19 02/12/25 07:17
I&O
02/11/25 02/12/25 02/13/25
06:59 06:59 06:59
Intake Total 800 / 800 1440 / 1440
Balance 800 / 800 1440 / 1440
[2025-02-12 12:24] LABS: Glucose - Point of Care 269 mg/dl (70-99)
[2025-02-12] MEDS: NOVOLOG FLEXPEN-LOW RESISTANCE 3 UNITS SC (12:28)
--- NOTE | 2025-02-12 14:27 | W.DCSUMMARY ---
Discharge Summary
Discharge Data
Date of Admission: 02/06/25
Date of Discharge: 02/12/25
-
Pending Results: No
Hospital Course
64-year-old female past medical history of liver cirrhosis decompensated secondary to alcoholic liver disease, atrial flutter, thrombocytopenia due to liver cirrhosis, chronic HFpEF, diabetes mellitus type 2 who was presented with altered mental
status which was deemed multifactorial secondary dehydration and with possibility of missed lactulose and rifaximin dosing. Patient was restarted on lactulose and rifaximin. Gastroenterology evaluated the patient. Patient mentation
significantly improved and was back to baseline. Patient had mild DENIA which resolved with IV fluid resuscitation. Lasix and Aldactone dose was decreased. Patient was having bowel movements. Patient was tolerating diet. Patient insulin was
adjusted. Patient was on by PT and OT and be discharged to SNF.
Discharge Plan
-
Patient Disposition: Half-Way/SNF
Discharge Diagnosis/Procedures: Acute kidney injury
Acute hepatic encephalopathy
Condition: Fair
Diet: 2 Gram Sodium, Diabetic, Carb Controlled and Restrict fluids to 48 oz
Activity: With assistance and As tolerated
Driving Restrictions: Not until seen by your Dr
Blood Work: CBC and BMP in 5 to 7 days via primary doctor
Referrals:
Matt López I., DO [Family Provider] - in less than 1 week
Penny Hickman MD [Active] - 02/22/25 (Outpatient f/u appointment on 02/22/25-call to confirm timing.)
Additional Discharge Medication Instructions: Lasix dose was decreased to 40 mg daily
Aldactone dose was decreased to 50 mg daily
Lantus dose was decreased to 10 units nightly
Prescriptions:
Continued
levothyroxine 50 MCG tablet
50 mcg PO DAILY
metformin 1,000 MG tablet
1,000 mg PO BID
duloxetine 30 mg Capsule,Delayed Release(Dr/Ec)
30 mg PO BID
carvedilol [Coreg] 3.125 mg Tablet
3.125 mg PO BID
sertraline 25 mg Tablet
75 mg PO DAILY
atomoxetine [Strattera] 40 mg Capsule
40 mg PO DAILY
polyethylene glycol 3350 [Miralax] 17 gram/dose powder
17 g PO DAILY
loratadine [Claritin] 10 mg Tablet
10 mg PO DAILY
aspirin 81 mg Tablet,Delayed Release (Dr/Ec)
81 mg PO DAILY Qty: 0 0RF
insulin aspart U-100 100 unit/mL (3 mL) Insulin Pen
10 unit SC AC Qty: 0 0RF
lactulose 10 gram/15 mL Solution
20 g PO Q4H Qty: 0 0RF
acetaminophen [Tylenol] 325 mg Tablet
650 mg PO Q4HPRN PRN (Reason: mild pain)
bisacodyl [Dulcolax (bisacodyl)] 10 mg Suppository
10 mg SC DAILYPRN PRN (Reason: if mom ineffective after 24 hrs)
omeprazole magnesium [Prilosec OTC] 20 mg Tablet,Delayed Release (Dr/Ec)
40 mg PO DAILY
Patient Comments:
02/06/25: to take from 02/06/25-02/20/25
Refresh Classic (PF) 1.4-0.6 % dropperette
1 drops BOTH EYES Q8HPRN PRN (Reason: dryness/itchy eyes)
Patient Comments:
02/06/25: to take from 02/05/25-02/19/25
Xifaxan 550 mg Tablet
550 mg PO BID 30 Days Qty: 60 0RF
Rybelsus 14 mg Tablet
14 mg PO DAILY Qty: 30 0RF
Changed
furosemide 40 mg Tablet
40 mg PO DAILY Qty: 0 0RF
insulin glargine [Lantus U-100 Insulin] 100 unit/mL Solution
10 unit SC HS Qty: 0 0RF
spironolactone 100 mg Tablet
50 mg PO DAILY Qty: 0 0RF
Discontinued
magnesium hydroxide [Milk of Magnesia] 400 mg/5 mL Suspension
30 ml PO [id number] PRN (Reason: no bm x3 days)
Fleet Enema 19-7 gram/118 mL Enema
118 ml SC DAILYPRN PRN (Reason: dulcolax ineffective after 24 hours)
Discharge Orders:
Discharge Patient (As Directed); Ordered 02/12/25
Ordered By: Eliezer Parrish
Discharge Date and Time
Print Language: MAURITIAN
[2025-02-12 15:45] VITALS: BP 121/59
[2025-02-12 16:38] LABS: Glucose - Point of Care 168 mg/dl (70-99)
[2025-02-12] MEDS: ZOFRAN 4 MG IV (19:37)
[2025-02-12] MEDS: TYLENOL 650 MG PO (20:28)
[2025-02-12 21:31] LABS: Glucose - Point of Care 134 mg/dl (70-99)
[2025-02-12] MEDS: LANTUS 0.1 UNITS SC (21:36)
[2025-02-12 23:05] VITALS: BP 114/56
[2025-02-13] MEDS: DUPHALAC/CHRONULAC 20 GRAMS PO ×3 (01:51→09:16)
[2025-02-13] MEDS: SYNTHROID 50 MCG PO (05:13)
[2025-02-13 07:41] VITALS: BP 114/54
[2025-02-13 08:30] LABS: Glucose - Point of Care 140 mg/dl (70-99)
[2025-02-13 09:16] LABS: ALT (SGPT) 49 U/L (0-35); AST (SGOT) 36 U/L (14-36); Albumin 3.2 g/dl (3.5-5.0); Alkaline Phosphatase 109 U/L (38-126); Blood Urea Nitrogen 21 mg/dl (7-17); Calcium 9.7 mg/dl (8.4-10.2); Carbon Dioxide 27 mmol/L (22-30); Chloride 100 mmol/L (98-107); Estimated Creatinine Clearance 48 ml/min; Glucose 140 mg/dl (70-99); Potassium 4.9 mmol/L (3.5-5.1); Sodium 137 mmol/L (135-145); Total Protein 5.8 g/dl (6.3-8.2); eGFR 56.81
[2025-02-13] MEDS: ASPIR LOW (ENTERIC COATED) 81 MG PO (09:16)
[2025-02-13] MEDS: XIFAXAN 550 MG PO (09:16)
[2025-02-13] MEDS: PROTONIX 40 MG PO (09:16)
[2025-02-13] MEDS: CLARITIN 10 MG PO (09:16)
[2025-02-13] MEDS: GLUCOPHAGE 1000 MG PO (09:17)
[2025-02-13] MEDS: COREG 3.125 MG PO (09:17)
[2025-02-13] MEDS: CYMBALTA DELAYED RELEASE 30 MG PO (09:17)
[2025-02-13] MEDS: ZOLOFT 75 MG PO (09:17)
[2025-02-13] MEDS: HEPARIN 5000 UNITS SC (09:18)
[2025-02-13] MEDS: MIRALAX 17 GRAMS PO (09:19)
[2025-02-13] MEDS: NOVOLOG FLEXPEN 10 UNITS SC ×2 (09:19→11:31)
[2025-02-13] MEDS: NOVOLOG FLEXPEN-LOW RESISTANCE SC (09:20)
--- NOTE | 2025-02-13 10:04 | CM ---
Chart reviewed
Pharmacy issues resolved per Dr Parrish - medication now available at pharmacy
Spoke with Shelly at [facility] - can accept today
Spoke with Danisha(JOSEPH) - reports she spoke with pharmacy rep - medication is ready/available at pharmacy - will bring to [facility] today
Aware pt for discharge and agrees with plan
Transport form on chart - transport via [facility]
Plan - transfer to [facility]
R - [phone]
- [phone]
[2025-02-13 10:58] VITALS: BMI 19.3
--- NOTE | 2025-02-13 11:14 | W.PN.HOSP.TC ---
Addendum entered and electronically signed by Eliezer Parrish MD 02/13/25 11:18:
POC AM 140. Continue with current dose of insulin regimen.
Original Note:
Today's Communication/Plan
-
dc to SNF
Assessment / Plan
Assessment / Plan
Gen-awake, alert, NAD
HEENT-NC, AT, anicteric, clear oral mm
Neck-supple
CV-reg, no M, +S1/S2
Lungs-clear B/L
Abd-soft, nondistended, mild tenderness without guarding
Ext-no edema
Musculoskeletal-no cyanosis, clubbing
Skin-warm and dry
Neuro-grossly non-focal
Psych-calm, cooperative
DENIA -suspect related to volume depletion. reduce furosemide, spironolactone dose and restart in 24h. . Cr improved.
Acute Hepatic Encephalopathy - secondary to Alcoholic Liver Disease. Trigger likely due to missed doses of lactulose and rifaximin in rehab. Mental status much improved
Continue oral lactulose, rifaximin, goal of 3-4 loose bowel movements daily. Lactulose dose increased to every 4 hours.
After prolonged discussion with patient insurance company and patient insurance patient advocacy group-rifaximin was finally approved (initially was denied) and after prolonged conversation with insurance company it is finally been approved
discussed with patient pharmacy will also concurred.
Did recommend to Jerilyn to follow-up with hepatology and consider following up at the transplant center.
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
Paroxysmal atrial flutter -currently in sinus rhythm.
Continue Coreg. Not on anticoagulation due to underlying cirrhosis, bleeding risk. Continue aspirin.
Echo shows LVEF 55 to 60%, stage III diastolic dysfunction, mild AR.
Subacute thrombocytopenia -monitor counts for now.
Chronic HFpEF -stable, reduce furosemide, spironolactone dose to 40mg/50mg
Essential Hypertension -stable.
Hyperlipidemia -atorvastatin on hold for elevated LFTs. DC for now and can restart if once AST/ALT normalize if it does.
DM2 with hyperglycemia -hemoglobin A1c 8.7%. Glucose 170 this morning. Home medications were metformin, and rybelsus. Metformin resumed. Continue reduce doses of Lantus 10 units at bedtime, NovoLog 10 units AC.
Hypothyroidism
-Continue levothyroxine
GERD / Monk's Esophagus
-Continue Protonix
Mild hyponatremia
-monitor
Anxiety/Depression
-Continue sertraline and duloxetine
Code Status: Full Code
Dispo -stable for discharge to SNF.
Updated patient JOSEPH Jean-Baptiste over the phone in details on 02/12 and again on 02/13/2025. She was agreeable and amenable discharge planning today.
More than 30 minutes spent in discharge including
Final examination of the patient
Summarizing hospital stay
Instructions for continuing care to all relevant caregivers
Preparation of discharge records, prescriptions, and referral forms
Total time spent (in minutes): 48
Anticipated Discharge: Today
Subjective/Interval History
-
Date of Service: February 13, 2025
Tolerating breakfast
Denies lightheaded and dizziness
Denies any abdominal pain
Objective Data
-
Labs:
Laboratory Results
02/13/25
07:32
Sodium 137
Potassium 4.9
Chloride 100
Carbon Dioxide 27
BUN 21 H
Creatinine 1.1 H
Glucose 140 H
Calcium 9.7
Total Bilirubin 1.0
AST 36
ALT 49 H
Alkaline Phosphatase 109
Vital Signs:
Vital Signs
Temp Pulse Resp BP Pulse Ox
97.8 F 66 16 114/54 100
02/13/25 07:41 02/13/25 09:17 02/13/25 07:41 02/13/25 09:17 02/13/25 10:21
I&O
02/12/25 02/13/25 02/14/25
06:59 06:59 06:59
Intake Total 1440 / 1440 1140 / 1140
Balance 1440 / 1440 1140 / 1140
[2025-02-13 11:31] LABS: Glucose - Point of Care 184 mg/dl (70-99)
[2025-02-13] MEDS: NOVOLOG FLEXPEN-LOW RESISTANCE 1 UNITS SC (11:31)
[2025-02-13] MEDS: LACTULOSE ENEMA 300 ML RECTAL (11:59)
[2025-02-13 15:00] VITALS: BP 110/53
--- NOTE | 2025-02-13 15:44 | PTCARENOTE ---
This RN called report to Candelario Martinez, no answer, answering machine not set up per audio recording.
== END 2025-02-13 15:49 | DRG 442 ==
LOC: 2 NORTH 22:53
PROVIDERS: Hospitalist; Physician Assistant; ADMITTING PHYSICIAN Internal Medicine; ATTENDING PHYSICIAN Hospitalist; CONSULT PHYSICIAN Internal Medicine Gastroenterology; EMERGENCY PHYSICIAN Emergency Medicine; FAMILY PHYSICIAN Internal Medicine
DX: K76.82 Hepatic encephalopathy (principal); E87.1 Hypo-osmolality and hyponatremia; I48.92 Unspecified atrial flutter; N17.9 Acute kidney failure, unspecified; I50.32 Chronic diastolic (congestive) heart failure; K76.6 Portal hypertension; I11.0 Hypertensive heart disease with heart failure; E78.5 Hyperlipidemia, unspecified; E03.9 Hypothyroidism, unspecified; K21.9 Gastro-esophageal reflux disease without esophagitis; K22.70 Barrett's esophagus without dysplasia; F41.9 Anxiety disorder, unspecified; F32.A Depression, unspecified; K70.30 Alcoholic cirrhosis of liver without ascites; E11.65 Type 2 diabetes mellitus with hyperglycemia; D50.9 Iron deficiency anemia, unspecified; F90.9 Attention-deficit hyperactivity disorder, unspecified type; Z87.891 Personal history of nicotine dependence; Z82.49 Family history of ischemic heart disease and other diseases of the circulatory system; Z83.3 Family history of diabetes mellitus; Z88.3 Allergy status to other anti-infective agents; Z88.2 Allergy status to sulfonamides; Z79.890 Hormone replacement therapy; Z79.84 Long term (current) use of oral hypoglycemic drugs; Z79.82 Long term (current) use of aspirin; Z79.4 Long term (current) use of insulin; Z80.0 Family history of malignant neoplasm of digestive organs; Z86.0100 Personal history of colon polyps, unspecified; Z88.1 Allergy status to other antibiotic agents; Z91.048 Other nonmedicinal substance allergy status
CPT/HCPCS: 70450; 71045; 80048; 80053; 81003; 81015; 82140; 82805; 82962; 83735; 85025; 85027; 96360; 97163; 97166; 97530; 99285

== ENCOUNTER → 2025-02-15 10:55 | Outpatient (REF) | payer OTHER, SELFPAY ==
[2025-02-15 11:33] LABS: % Basophils 0.7 % (0-2); % Eosinophils 4.2 % (0-6); % Immature Granulocytes 0.3 % (0-0.5); % Lymphocytes 34.7 % (20.5-51.1); % Monocytes 11.9 % (1.7-9.3); % Neutrophils 48.2 % (42.2-75.2); Absolute Eosinophils 0.3 10^3/uL (0-0.7); Absolute Lymphocytes 2.1 10^3/uL (1.2-3.4); Absolute Monocytes 0.7 10^3/uL (0.1-0.6); Absolute Neutrophils 2.9 10^3/uL (1.4-6.5); Hematocrit 30.6 % (37.0-47.0); Hemoglobin 10.7 g/dL (12.0-16.0); Mean Corpuscular Hgb 31.8 pg (27.0-31.0); Mean Corpuscular Volume 90.8 fL (81.0-99.0); Mean Platelet Volume 11.7 fL (7.4-10.4); Nucleated Red Blood Cells % 0 %; Platelet Count 134 10^3/uL (130-400); Red Blood Cell Count 3.37 10^6/uL (4.20-5.40); Red Cell Dist. Width 14.2 % (11.5-14.5)
[2025-02-15 11:42] LABS: ALT (SGPT) 59 U/L (0-35); AST (SGOT) 42 U/L (14-36); Alkaline Phosphatase 109 U/L (38-126); Blood Urea Nitrogen 19 mg/dl (7-17); Calcium 9.9 mg/dl (8.4-10.2); Carbon Dioxide 27 mmol/L (22-30); Chloride 100 mmol/L (98-107); Glucose 155 mg/dl (70-99); Potassium 4.5 mmol/L (3.5-5.1); Sodium 138 mmol/L (135-145); Total Bilirubin 0.8 mg/dl (0.2-1.3); Total Protein 5.6 g/dl (6.3-8.2); eGFR > 60.00
== END ==
LOC: OLABP 10:55
PROVIDERS: ATTENDING PHYSICIAN Family Medicine
DX: K76.82 Hepatic encephalopathy (principal); K70.30 Alcoholic cirrhosis of liver without ascites; E03.9 Hypothyroidism, unspecified; I50.32 Chronic diastolic (congestive) heart failure; F41.9 Anxiety disorder, unspecified; I10 Essential (primary) hypertension; E11.9 Type 2 diabetes mellitus without complications; D50.9 Iron deficiency anemia, unspecified; K21.9 Gastro-esophageal reflux disease without esophagitis; E78.5 Hyperlipidemia, unspecified
CPT/HCPCS: 36415; 80053; 85025

== ENCOUNTER → 2025-02-18 09:18 | Outpatient (REF) | payer OTHER, SELFPAY ==
[2025-02-18 11:02] LABS: % Eosinophils 3.1 % (0-6); % Immature Granulocytes 0.4 % (0-0.5); % Lymphocytes 29.6 % (20.5-51.1); % Monocytes 11.6 % (1.7-9.3); % Neutrophils 54.3 % (42.2-75.2); Absolute Basophils 0.1 10^3/uL (0-0.2); Absolute Eosinophils 0.2 10^3/uL (0-0.7); Absolute Monocytes 0.8 10^3/uL (0.1-0.6); Absolute Neutrophils 3.7 10^3/uL (1.4-6.5); Hematocrit 34.8 % (37.0-47.0); Hemoglobin 11.8 g/dL (12.0-16.0); Mean Corp Hgb Conc. 33.9 g/dL (33.0-37.0); Mean Corpuscular Hgb 31.3 pg (27.0-31.0); Mean Corpuscular Volume 92.3 fL (81.0-99.0); Mean Platelet Volume 11.7 fL (7.4-10.4); Nucleated Red Blood Cells % 0 %; Platelet Count 181 10^3/uL (130-400); Red Blood Cell Count 3.77 10^6/uL (4.20-5.40); Red Cell Dist. Width 13.9 % (11.5-14.5); White Blood Cell Count 6.7 10^3/uL (4.8-10.8)
[2025-02-18 12:07] LABS: ALT (SGPT) 69 U/L (0-35); AST (SGOT) 60 U/L (14-36); Albumin 3.3 g/dl (3.5-5.0); Alkaline Phosphatase 128 U/L (38-126); Blood Urea Nitrogen 18 mg/dl (7-17); Calcium 10.5 mg/dl (8.4-10.2); Carbon Dioxide 31 mmol/L (22-30); Chloride 96 mmol/L (98-107); Glucose 165 mg/dl (70-99); Potassium 4.8 mmol/L (3.5-5.1); Sodium 135 mmol/L (135-145); Total Bilirubin 0.8 mg/dl (0.2-1.3); Total Protein 6.1 g/dl (6.3-8.2); eGFR > 60.00
[2025-02-18 12:59] LABS: Ammonia 25 umol/L (9-30)
== END ==
LOC: OLABP 09:18
PROVIDERS: ATTENDING PHYSICIAN Family Medicine
DX: K76.82 Hepatic encephalopathy (principal); K70.30 Alcoholic cirrhosis of liver without ascites; E03.9 Hypothyroidism, unspecified; I50.32 Chronic diastolic (congestive) heart failure; F41.9 Anxiety disorder, unspecified; I10 Essential (primary) hypertension; E11.9 Type 2 diabetes mellitus without complications; D50.9 Iron deficiency anemia, unspecified; K21.9 Gastro-esophageal reflux disease without esophagitis; E78.5 Hyperlipidemia, unspecified
CPT/HCPCS: 36415; 80053; 82140; 85025

== ENCOUNTER → 2025-02-21 09:29 | Outpatient (REF) | payer OTHER, SELFPAY ==
[2025-02-21 10:38] LABS: Ammonia 27 umol/L (9-30)
[2025-02-21 11:02] LABS: ALT (SGPT) 48 U/L (0-35); AST (SGOT) 38 U/L (14-36); Albumin 3.1 g/dl (3.5-5.0); Alkaline Phosphatase 108 U/L (38-126); Blood Urea Nitrogen 19 mg/dl (7-17); Calcium 10.5 mg/dl (8.4-10.2); Carbon Dioxide 31 mmol/L (22-30); Chloride 101 mmol/L (98-107); Glucose 156 mg/dl (70-99); Potassium 4.4 mmol/L (3.5-5.1); Sodium 139 mmol/L (135-145); Total Bilirubin 0.7 mg/dl (0.2-1.3); Total Protein 5.8 g/dl (6.3-8.2); eGFR > 60.00
== END ==
LOC: OLABP 09:29
PROVIDERS: ATTENDING PHYSICIAN Nurse Practitioner Adult Health
DX: K76.82 Hepatic encephalopathy (principal); K70.30 Alcoholic cirrhosis of liver without ascites; E03.9 Hypothyroidism, unspecified; I50.32 Chronic diastolic (congestive) heart failure; F41.9 Anxiety disorder, unspecified; I11.0 Hypertensive heart disease with heart failure; E11.9 Type 2 diabetes mellitus without complications; D50.9 Iron deficiency anemia, unspecified; K21.9 Gastro-esophageal reflux disease without esophagitis; E78.5 Hyperlipidemia, unspecified
CPT/HCPCS: 36415; 80053; 82140

== ENCOUNTER → 2025-02-22 11:19 | Outpatient (REF) | payer OTHER, SELFPAY ==
[2025-02-22 12:51] LABS: Phosphorus 4.1 mg/dl (2.5-4.5)
[2025-02-22 13:15] LABS: Free T4 1.26 ng/dl (0.78-2.19); Vitamin D, 25-OH*** 26.3 ng/mL (30-80)
[2025-02-22 13:28] LABS: TSH 3.18 uIU/ml (0.47-4.68)
[2025-02-23 11:02] LABS: Intact PTH 13.9 pg/ml (13.6-85.8)
== END ==
LOC: OLABP 11:19
PROVIDERS: ATTENDING PHYSICIAN Family Medicine
DX: E03.9 Hypothyroidism, unspecified (principal); K70.30 Alcoholic cirrhosis of liver without ascites; I50.32 Chronic diastolic (congestive) heart failure; F41.9 Anxiety disorder, unspecified; I11.0 Hypertensive heart disease with heart failure; E11.9 Type 2 diabetes mellitus without complications; D50.9 Iron deficiency anemia, unspecified; K21.9 Gastro-esophageal reflux disease without esophagitis; E78.5 Hyperlipidemia, unspecified
CPT/HCPCS: 36415; 82306; 83970; 84100; 84439; 84443

== ENCOUNTER → 2025-04-19 14:03 | Outpatient (REF) | payer OTHER, SELFPAY | LOC: WDC 14:03 | PROVIDERS: ATTENDING PHYSICIAN Nurse Practitioner | DX: Z12.31 Encounter for screening mammogram for malignant neoplasm of breast (principal) | CPT/HCPCS: 77063; 77067 ==

== ENCOUNTER 2025-05-23 07:45 | Outpatient (RCR) | payer OTHER, SELFPAY | END 2025-05-23 23:59 | disposition home or self-care (01) | LOC: RPT 07:45 | PROVIDERS: ATTENDING PHYSICIAN Nurse Practitioner | DX: R53.81 Other malaise (principal); K70.30 Alcoholic cirrhosis of liver without ascites; R26.89 Other abnormalities of gait and mobility; R26.2 Difficulty in walking, not elsewhere classified; M62.81 Muscle weakness (generalized); Z73.6 Limitation of activities due to disability | CPT/HCPCS: 97163 ==

== ENCOUNTER → 2025-06-05 08:30 | Outpatient (REF) | payer OTHER, SELFPAY | LOC: MRI 3T 08:30 | PROVIDERS: ATTENDING PHYSICIAN Internal Medicine Gastroenterology; FAMILY PHYSICIAN Nurse Practitioner | DX: K70.31 Alcoholic cirrhosis of liver with ascites (principal) | CPT/HCPCS: 74183; A9581 ==

== ENCOUNTER 2025-06-17 14:09 | Outpatient (RCR) | payer OTHER, SELFPAY | END 2025-06-17 23:59 | disposition home or self-care (01) | LOC: RPT 14:09 | PROVIDERS: ATTENDING PHYSICIAN Nurse Practitioner | DX: R53.81 Other malaise (principal); K70.30 Alcoholic cirrhosis of liver without ascites; R26.89 Other abnormalities of gait and mobility; R26.2 Difficulty in walking, not elsewhere classified; M62.81 Muscle weakness (generalized) | CPT/HCPCS: 97110; 97112; 97167; 97530; 97537 ==

== ENCOUNTER 2025-07-19 13:20 | Outpatient (RCR) | payer OTHER, SELFPAY | END 2025-07-19 23:59 | disposition home or self-care (01) | LOC: RPT 13:20 | PROVIDERS: ATTENDING PHYSICIAN Nurse Practitioner | DX: R53.81 Other malaise (principal); K70.30 Alcoholic cirrhosis of liver without ascites; R26.89 Other abnormalities of gait and mobility; R26.2 Difficulty in walking, not elsewhere classified; M62.81 Muscle weakness (generalized) | CPT/HCPCS: 97110; 97112; 97530; 97535; 97537 ==

== ENCOUNTER 2025-08-15 09:42 | Outpatient (RCR) | payer OTHER, SELFPAY | END 2025-08-15 23:59 | disposition home or self-care (01) | LOC: RPT 09:42 | PROVIDERS: ATTENDING PHYSICIAN Nurse Practitioner | DX: R53.81 Other malaise (principal); K70.30 Alcoholic cirrhosis of liver without ascites; R26.89 Other abnormalities of gait and mobility; R26.2 Difficulty in walking, not elsewhere classified; M62.81 Muscle weakness (generalized) | CPT/HCPCS: 97110; 97112; 97530; 97535 ==

== ENCOUNTER 2025-09-11 12:06 | Outpatient (RCR) | payer OTHER, SELFPAY | END 2025-09-11 23:59 | disposition home or self-care (01) | LOC: RPT 12:06 | PROVIDERS: ATTENDING PHYSICIAN Nurse Practitioner | DX: R53.81 Other malaise (principal); K70.30 Alcoholic cirrhosis of liver without ascites; R26.89 Other abnormalities of gait and mobility; R26.2 Difficulty in walking, not elsewhere classified; M62.81 Muscle weakness (generalized) | CPT/HCPCS: 97110; 97112; 97530 ==

== ENCOUNTER 2025-09-26 14:25 | Outpatient (RCR) | payer OTHER, SELFPAY | END 2025-09-26 23:59 | disposition home or self-care (01) | LOC: RPT 14:25 | PROVIDERS: ATTENDING PHYSICIAN Nurse Practitioner | DX: R53.81 Other malaise (principal); K70.30 Alcoholic cirrhosis of liver without ascites; R26.89 Other abnormalities of gait and mobility; R26.2 Difficulty in walking, not elsewhere classified; M62.81 Muscle weakness (generalized) | CPT/HCPCS: 97110; 97112; 97530 ==